=== PATIENT | male | born 1940 | race Caucasian/White ===

== ENCOUNTER 2016-02-12 13:28 | Inpatient (IN) | payer MEDICARE, OTHER ==
[~2016-02-12] VITALS: Ht 182.9 cm; Wt 73.6 kg
[~2016-02-12 13:28] MED LIST: NADOLOL 20MG TABLET PO SCH
[2016-02-12 14:41] LABS: BASO % 0.5 % (0.0-1.0); EOS % 0.8 % (0.0-3.0); LARGE UNSTAINED CELL # 0.2 K/mm3 (0.0-0.4); LARGE UNSTAINED CELL % 2.8 % (0.0-4.0); LYMPH # 1.8 K/mm3 (1.5-4.5); LYMPH % 22.7 % (24.0-44.0); MEAN CORPUSCULAR HGB CONC 34.9 g/dl (32.0-36.5); MEAN CORPUSCULAR VOLUME 94.5 fl (80.0-96.0); MONO # 0.7 K/mm3 (0.0-0.8); MONO % 9.7 % (0.0-5.0); NEUTROPHILS # 4.5 K/mm3 (1.8-7.7); NEUTROPHILS % 63.5 % (36.0-66.0); PLATELET COUNT, AUTOMATED 219 k/mm3 (150-450); WHITE BLOOD COUNT 7.1 K/mm3 (4.0-10.0)
--- NOTE | 2016-02-12 14:58 | REP ---
CT HEAD WITHOUT CONTRAST: HISTORY: Altered mental status. COMPARISON: 03/28/2015 An area of decreased attenuation is present in the right basal ganglia. This represents an old lacunar infarction. Areas of decreased attenuation are present in the periventricular and subcortical white matter. This represents small vessel ischemic disease. There is no intraparenchymal hemorrhage, mass or midline shift. The ventricular system and cortical sulci are dilated consistent with moderate volume loss. There is no extracerebral collection. The visualized sinuses are clear. IMPRESSION: 1. Old right basal ganglia lacunar infarction. 2. Small vessel ischemic disease. 3. Moderate volume loss. Signed by Jimmie Banks MD 02/12/2016 03:16 P
--- NOTE | 2016-02-12 14:59 | REP ---
PA CHEST X-RAY: Single view. HISTORY: Altered mental status. Comparison study March 28, 2015. FINDINGS: EKG monitoring electrodes overlie the chest. Heart is not enlarged. Aorta us slightly tortuous. Pulmonary vasculature is not increased. No significant bony abnormality. IMPRESSION: No active disease. Signed by Jason Bae MD 02/12/2016 04:39 P
[2016-02-12 15:00] LABS: ALBUMIN 4.3 GM/DL (3.2-5.2); ALBUMIN/GLOBULIN RATIO 1.54 (1.00-1.93); ALKALINE PHOSPHATASE 72 U/L (45-117); ALT/SGPT 25 U/L (12-78); ANION GAP 10 MEQ/L (8-16); AST/SGOT 28 U/L (15-37); BILIRUBIN,DIRECT 0.3 MG/DL (0.0-0.2); BILIRUBIN,TOTAL 0.8 MG/DL (0.2-1.0); BLOOD UREA NITROGEN 76 MG/DL (7-18); CALCIUM LEVEL 9.5 MG/DL (8.8-10.2); CARBON DIOXIDE LEVEL 24 MEQ/L (21-32); CHLORIDE LEVEL 104 MEQ/L (98-107); CREATININE FOR GFR 2.45 MG/DL (0.70-1.30); GLOMERULAR FILTRATION RATE 27.7 (>42); GLUCOSE, FASTING 101 MG/DL (83-110); POTASSIUM SERUM 4.7 MEQ/L (3.5-5.1); SODIUM LEVEL 138 MEQ/L (136-145); TOTAL PROTEIN 7.1 GM/DL (6.4-8.2)
[2016-02-12] MEDS ORDERED: NADO40TA PO (15:52)
[2016-02-12] MEDS ORDERED: FLUO40CA57 PO (15:52)
[2016-02-12] MEDS ORDERED: NATE120T4 PO (15:52)
[2016-02-12] MEDS ORDERED: METF500T PO (15:52)
[2016-02-12] MEDS ORDERED: LIPI20TA PO (15:52)
[2016-02-12] MEDS ORDERED: RAMI10CA PO (15:53)
[2016-02-12] MEDS ORDERED: LANS30CA PO (15:53)
[2016-02-12] MEDS ORDERED: ONDANSETRON 4MG/2ML VIAL (J2405) IV PRN (17:45)
[2016-02-12 18:10] LABS: MAGNESIUM LEVEL 1.8 MG/DL (1.8-2.4); PHOSPHORUS LEVEL 2.1 MG/DL (2.5-4.9)
[2016-02-12 18:15] LABS: AMPHETAMINES LEVEL URINE NEGATIVE (NEGATIVE); BENZODIAZEPINES URINE NEGATIVE (NEGATIVE); COCAINE METABOLITE URINE NEGATIVE (NEGATIVE); M-AMPHETAMINES LEVEL URINE NEGATIVE (NEGATIVE); OPIATES URINE NEGATIVE (NEGATIVE); TRICYCLIC ANTIDEPRESS URINE NEGATIVE (NEGATIVE)
[2016-02-12] MEDS ORDERED: GLUCOSE 4 GM CHEW TABLET PO PRN (18:30)
[2016-02-12] MEDS ORDERED: DEXTROSE 50% 50 ML SYRINGE IV PRN (18:30)
[2016-02-12] MEDS ORDERED: GLUCAGON FOR INJ 1 MG VIAL (J1610) SC PRN (18:30)
--- NOTE | 2016-02-12 19:10 | REPUSA ---
CLINICAL HISTORY: Possible obstruction.. TECHNIQUE: High resolution ultrasound images of the kidneys and additional images of the bladder. COMPARISON: None. FINDINGS: Right kidney: Measures 9.4 x 5.7 x 5.3 cm. Small peripheral cysts of 1.3 x 1.1 x 1.0 cm midpole and 3 .3 x 3.1 x 2.4 x cm. No evidence of hydronephrosis or calculus. Left kidney: Measures 11.6 x 5.6 x 5.2 cm. No evidence of hydronephrosis or renal calculus. Small upp er pole cysts of 1.4 x 1.2 x 1.2 cm and 1.3 x 1.3 x 1.2 cm. Bladder: No wall thickening, intraluminal mass, or diverticula. Prostate measures 4.6 x 3.6 x 2.4 cm. Incidental finding of small GB calculi up to 10 mm. IMPRESSION: Few bilateral renal cysts. Cholelithiasis.
--- NOTE | 2016-02-12 19:53 | ECGEPIP ---
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
--- NOTE | 2016-02-12 19:57 | HPE ---
DATE OF ADMISSION: 02/12/2016 Time patient was seen was 1600 hours. PRIMARY CARE PROVIDER: Jonas Rico Jr., MD CHIEF COMPLAINT: Altered mental status, confusion. HISTORY OF PRESENT ILLNESS: 75-year-old male with past medical history of type 2 diabetes, hypertension, hyperlipidemia, dementia, osteoarthritis, fall, alcohol abuse, gastroesophageal reflux disease (GERD), hiatal hernia, Schatzki ring status post balloon, hemorrhoids, diverticulosis, episode of sinus bradycardia in 2012, presented for increased confusion and delirium. Per patient's landlord who was in the room with the patient, patient has had increasing delirium over the past 3 months. As per landlord, patient would talk about his parents recently who have long and he stated that he has been visiting them recently. In addition, he talked with an imaginary woman and stated that that woman takes a shower in his apartment. In addition, he also drove into the garage and broke part of his car and there were multiple instances that patient thought he was in a different location. According to patient's landlord, patient has also been eating less, he eats about one meal per day, and mostly stays in his apartment. In addition, he sleeps throughout the day and only wakes up during the evening. Also, patient has been having multiple falls over the past one year and has been getting increasingly confused with poor memory and being delirious. When talking with patient, patient believes that he is enlisted in the service and he is going to be a private and he also believes that his parents are alive and he stated that he has been visiting them. However, patient does speak fluently and does show some insight of his decisions, however he remains delirious. He admits to weight loss over the past 1 year and patient stated it was intentional, however he could not tell why he is trying to lose weight. Otherwise, patient's short-term memory seems to be intact. Patient does know the month and year and the location and his full name. Patient denies any weakness on any side of his body, any slurred speech, any recent illness, any head trauma recently, or any chest pain, trouble breathing, abdominal pains, nausea, vomiting, diarrhea, or constipation. Patient denies any changes with his urination. Denies any changes with bowel movements. Denies any blood in the urine or stool. ALLERGIES: Patient is allergic to SULFA drugs. HOME MEDICATIONS: Include: - Lipitor 20 mg one tablet by mouth daily - fluoxetine 40 mg one tablet by mouth daily - lansoprazole 30 mg one tablet by mouth daily - metformin 500 mg one tablet by mouth twice a day - nadolol 40 mg one tablet by mouth daily - nateglinide 120 mg one tablet by mouth daily - ramipril 10 mg one tablet by mouth daily PAST MEDICAL HISTORY: Includin. Type 2 diabetes. 2. Hypertension. 3. Hyperlipidemia. 4. Dementia. 5. Osteoarthritis. 6. Recent falls. 7. Alcohol usage. 8. GERD. 9. Hiatal hernia. 10. Schatzki ring. 11. Hemorrhoids and diverticulosis. 12. Dysphagia status post balloon dilatation for Schatzki ring. 13. Sinus bradycardia with ventricular rate in 50s in 2013. PAST SURGICAL HISTORY: Includin. Tonsillectomy. SOCIAL HISTORY: Patient lives at a home. Has a brother in [place]. Patient used to smoke roughly 40 years ago, however only used to smoke several cigarettes a day for roughly 10 years. Admits to occasional drinking, used to be heavier a few years back, however he only drinks several beers a week now. Denies any recreational drug use. 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 FAMILY HISTORY: Admits to hypertension, diabetes runs in the family. REVIEW OF SYSTEMS: GENERAL: Patient denies any recent traveling, sick contacts, fever or chills. Admits to weight loss, he stated that it was intentional, however. However, he does not have a reason for his intentional weight loss. HEENT: Denies any changes with vision, smell, hearing, or taste. Denies any sore throat. Denies any trouble swallowing, however he did have a history of dysphagia with a balloon through EGD. CARDIOVASCULAR: Denies any chest pain, trouble breathing. PULMONARY: Denies any lung problems, any trouble breathing, any cough. GASTROINTESTINAL (GI): Patient denies any abdominal pains, nausea, vomiting, diarrhea, constipation, or blood in the stool. GENITOURINARY (): Patient denies any problem with urination, any blood in urine. MUSCULOSKELETAL: Denies any pain anywhere. ENDOCRINE: Denies any excessive cold or heat. HEMATOLOGY/ONCOLOGY: Denies any bruising or bleeding. PSYCHIATRIC: Admits to some dementia. Landlord also stated that he started having some dementia 25 years ago. NEUROLOGIC: Denies any weakness on any side of his body. Patient does not use a walker at home. Denies any change of sensation. PHYSICAL EXAMINATION: VITAL SIGNS: Blood pressure 88/58, pulse 58, respirations 16, temperature 97, oxygen saturation 100% on room air. Weight 72 kg, height 182 cm. GENERAL: Patient is a thin-looking, elderly male who was alert, awake, oriented times three, however does appear to be delirious. Does not have any discomfort. Sitting up at a 60 degree angle. HEENT: Normocephalic, atraumatic. Extraocular motors intact. Mucous moist. Neck: Supple, no neck lymphadenopathy. Patient has poor dentition. LUNGS: Clear to auscultation bilaterally. No wheezing, rales, or rhonchi. CARDIOVASCULAR: Regular rate and rhythm. No murmur, rubs, or gallops. ABDOMEN: Positive bowel sounds. Soft, nontender, nondistended. No peritoneal signs. No ecchymosis. EXTREMITIES: No edema, clubbing, or cyanosis. SKIN: Warm and dry. NEUROLOGIC: Cranial nerves II-XII intact. No focal neurological deficits. Eyebrow raise was equal bilaterally. Smile was symmetrical. Tongue protruding was midline. Patient's muscle strength was 5/5 in bilateral upper and lower extremities. Patient's gait appears to be roughly normal. Sensation was intact bilaterally. LABORATORY DATA: WBC 7.1, hemoglobin 13.8, hematocrit 39.4, platelet count 219, MCV 94.5. Sodium 138, potassium 4.7, chloride 104, bicarbonate 24, BUN 76, creatinine 2.45, GFR 27, fasting glucose 101, calcium 9.5, phosphorous 2.1, magnesium 1.8, total bilirubin 0.8, direct bilirubin 0.3, AST 28, ALT 25, alkaline phosphatase 72. CK 123, CK-MB 1.3, troponin less than 0.02, total protein 7.1, albumin 4.3, TSH 3.17. Urinalysis shows trace ketones. Salicylate was negative and acetaminophen was negative. Urine drug screen was negative. Alcohol level is less than 0.003. Urine culture is pending. Patient had a head CT in the emergency room, shows old right basilar ganglia lacunar infarction, small vessel ischemic disease, moderate volume loss. Patient had a one view chest xray, shows no active disease. Patient also had workup in the past, 01/30/2016, patient's vitamin B12 level was 230, folate level was 13.1. Patient's syphilis level has been checked recently, 01/30/2016, shows nonreactive. ASSESSMENT AND PLAN: 75-year-old male with past medical history of type 2 diabetes, hypertension, hyperlipidemia, dementia, likely Alzheimer type, osteoarthritis, falls, alcohol usage, gastroesophageal reflux disease (GERD), hiatal hernia, Schatzki ring, status post balloon dilatation, hemorrhoids, diverticulosis, sinus bradycardia, presented with: 1. Altered mental status, possibly secondary to progression of Alzheimer dementia versus vitamin B12 and folate metabolic encephalopathy versus stroke versus vascular dementia. Patient had a recent workup outpatient on 01/30/2016, shows patient's vitamin B12 level is borderline low. Patient is nonreactive with syphilis. Therefore, will provide patient with vitamin B12 shot for 3 days. Will also start patient on multivitamin. In addition, patient's MRI of the head has been pending. Will followup with the result. Patient is also recently found to have acute on chronic kidney disease with creatinine elevated compared to previous. Previously, creatinine was 1.14 back in March last year and currently is 2.45 with elevated BUN. This could also contribute to patient's delirium and dementia, however it could be the other way around as well due to patient has been eating and drinking less after worsening of dementia. Will continue to followup and rule out other causes for his altered mental status. 2. Acute on chronic kidney disease with creatinine of 2.45. About a year ago, patient's creatinine was 1.14. Patient received 1.5 liters of normal saline bolus in the emergency room. Will continue patient on normal saline at a rate of 80 mL/hour. Will check patient's fractional excretion of sodium (FENa) as well and continue to monitor. Renal ultrasound has been ordered as well, will followup with the result. 3. Anemia with hemoglobin of 13.8, MCV 94.5. Patient did have a slightly low vitamin B12 level. Continue supplement and will also order hemoccult. 4. Type 2 diabetes. Patient's metformin and nateglinide has been on hold due to acute on chronic kidney disease. Will place patient on insulin sliding scale and continue to monitor. Patient's ramipril has been on hold as well due to hypotension and also acute on chronic kidney disease. Will continue to monitor. 5. Hypotension. Initial blood pressure was 80/56. After 1.5 liters of bolus, patient's blood pressure was 88/59. Will continue orthostatic vital signs and continue to monitor patient. Continue intravenous (IV) fluids. 6. Hyperlipidemia. Will hold statin for now due to acute on chronic kidney disease and continue to monitor. 7. Dementia, without specified type, likely Alzheimer type. Will obtain record from Dr. Rico's office and continue to monitor patient. 8. Osteoarthritis. Will continue Tylenol. 9. Frequent falls. Will continue fall precaution. 10. History of alcohol usage. Level has been checked and is negative. Will continue to monitor. 11. History of gastroesophageal reflux disease (GERD), hiatal hernia, Schatzki ring with balloon dilatation in the past. Continue to monitor. Patient denies any trouble swallowing. Will continue home proton pump inhibitor (PPI). 12. Hemorrhoids and diverticulosis. Continue to monitor. Stable. 13. Sinus bradycardia with a ventricular rate of 55 in 2012. Will continue to monitor patient in the progressive care unit (PCU) for now due to altered mental status. 14. Deep venous thrombosis (DVT) prophylaxis with heparin 5000 units subcutaneously every 12 hours as well as thromboembolism deterrents (TEDs) and sequential compression device. DISPOSITION: Patient has a rather acute exacerbation of confusion from his baseline and also delirium, worse for the past 3 months, sent over by Dr. Rico and his landlord due to possible self-harm, he is still driving. Will rule out etiologies for his altered mental status and continue to monitor him in progressive care unit (PCU) for the night. Patient has been discussed with attending doctor, Dr. Sahni. My preceptor for this patient encounter was Dr. Cori Sahni. The preceptor was physically present in the building during the encounter and was fully available. As needed, all aspects of the patient interview, examination, medical decision making process, and medical care plan development were reviewed and approved by the preceptor. The preceptor is aware and concurs with the plan as stated in the body of this note and will attest to such by his cosignature.
[2016-02-12] MEDS: MULTIVITAMINS/MINERALS THERAP 1 TAB PO SCH (20:00)
[2016-02-12] MEDS: CYANOCOBALAMIN 1,000 MCG/ML VIAL (J3420) IM SCH (20:00)
--- NOTE | 2016-02-12 20:04 | EDDOCDS ---
Physician Documentation [facility] Name: Jimmie Loredo Age: 75 yrs Sex: Male : 1940 Arrival Date: 02/12/2016 Time: 13:28 Bed 11 Private MD: Jacky Disposition: 02/12/16 15:25 Hospitalization ordered by Cori Sahni for Inpatient Admission. Preliminary diagnosis are Hypotension - Acute Kidney Injury, Altered mental status, unspecified. - Bed requested for PCU. - Status is Inpatient Admission. mlc - Condition is Stable. - Problem is new. - Symptoms are unchanged. Historical: - Allergies: Sulfa (Sulfonamide Antibiotics); - Home Meds: 1. Lipitor 20 mg Oral tab 1 tab once daily 2. metformin 500 mg Oral tab 1 tab 2 times per day 3. Starlix 60 mg Oral tab 2 tabs daily 4. Naproxen Oral unknown 5. Angelita Oral Unknown unknown - PMHx: Diabetes - NIDDM: controlled; hyperlipidemia; Hypertension; - PSHx: none; - Social history: No barriers to communication noted, The patient speaks fluent Filipino, Smoking status: Patient states former smoker of tobacco. - Family history: Not pertinent. - : The pt / caregiver states he / she is not on anticoagulants. Home medication list is obtained from the patient. - Exposure Risk Screening:: None identified. Vital Signs: 02/11 13:32 BP 80 / 56; Pulse 62; Resp 18 S; Temp 97.0(T); Pulse Ox 100% on R/A; Weight 72.57 kg / gr2 159.99 lbs (R); Height 6 ft. 0 in. (182.88 cm) (R); Pain 0/10; 13:46 BP 99 / 55 (auto/); Pulse 52; Resp 16; Pulse Ox 98% on R/A; Pain 0/10; ml6 14:31 BP 88 / 58 (auto/); ml6 14:31 Pulse 58 MON; Resp 16; Pulse Ox 100% on R/A; Pain 0/10; ml6 15:00 BP 105 / 54; Pulse 57; Resp 16; Pulse Ox 98% on R/A; Pain 0/10; ml6 16:00 BP 107 / 58; Pulse 55; Resp 16; Pulse Ox 98% on R/A; Pain 0/10; ml6 18:00 BP 118 / 61; Pulse 58; Resp 18; Temp 97.8(O); Pulse Ox 98% on R/A; Pain 0/10; ml6 20:01 BP 97 / 56; Pulse 59; Resp 18; Temp 98.1(TE); Pulse Ox 99% on R/A; Pain 0/10; mlc 13:32 Body Mass Index 21.70 (72.57 kg, 182.88 cm) gr2 MDM: 14:00 [employer]/Pulse Ox/q 15 min VS ordered. br1 14:00 IV Saline Lock ordered. br1 14:00 Rhythm Strip to chart ordered. br1 14:00 NS 0.9% 500 ml IV at bolus once ordered. br1 14:00 Undress patient ordered. br1 14:01 Acetaminophen Level Ordered. EDMS 14:01 CBC with Diff Ordered. EDMS 14:01 Cardiac Injury Profile Ordered. EDMS 14:01 Drug Eval Toxicology ED Only Ordered. EDMS 14:01 Liver Profile Ordered. EDMS 14:01 MED Profile Ordered. EDMS 14:01 Salicylate Level Ordered. EDMS 14:01 Thyroid Stimulating Hormone Ordered. EDMS 14:01 Troponin Ordered. EDMS 14:01 Urinalysis Ordered. EDMS 14:01 Urine Culture Ordered. EDMS 14:01 Chest, 1 View Ordered. EDMS 14:02 CT Head Without Contrast Ordered. EDMS 14:02 ECG WITH READING ER PHYS+CARDIAG ordered. EDMS 14:49 CBC with Diff Reviewed. br1 15:02 Financial registration complete. mm15 15:06 [facility] [place] was [place] into [employer] and attached to record. mm15 15:11 NS 0.9% 1000 ml IV at 150 mL/hr continuous ordered. br1 15:12 Acetaminophen Level Reviewed. br1 15:12 Liver Profile Reviewed. br1 15:12 MED Profile Reviewed. br1 15:12 Salicylate Level Reviewed. br1 15:12 Cardiac Injury Profile Reviewed. br1 15:12 Thyroid Stimulating Hormone Reviewed. br1 15:12 Troponin Reviewed. br1 15:15 BED REQUEST+ADM ordered. EDMS 17:25 Admission / Observation Status ordered. EDMS 17:41 SODIUM,RANDOM URINE Ordered. EDMS 17:41 CREATININE,RANDOM URINE Ordered. EDMS 17:41 MRI Brain without Contrast Ordered. EDMS 17:42 PHYSICAL THERAPY EVAL & TREAT ordered. EDMS 17:42 RENAL US Ordered. EDMS 17:49 CONSISTENT CARBOHYDRATES ordered. EDMS 18:00 ETHYL ALCOHOL (ETHANOL) Ordered. EDMS 18:53 BLOOD CULTURES Ordered. EDMS 18:53 BLOOD CULTURES Ordered. EDMS 19:01 LACTIC ACID LEVEL, LACTATE Ordered. EDMS 19:31 BASIC METABOLIC PROFILE Ordered. EDMS 19:32 CBC WITH DIFFERENTIAL Ordered. EDMS 19:32 BILIRUBIN,DIRECT Ordered. EDMS Administered Medications: 14:31 Drug: NS 0.9% 500 ml [sodium chloride 0.9 % intravenous solution] Route: IV; Rate: nr1 bolus; Site: right antecubital; 15:30 Follow up: IV Status: Completed infusion; Infusion discontinued; IV Intake: 500ml ml6 15:13 Drug: NS 0.9% 1000 ml [sodium chloride 0.9 % intravenous solution] Route: IV; Rate: 150 ml6 mL/hr; Site: right antecubital; Signatures: Dispatcher [employer] EDMS Chauncey Aquino MD MD br1 Paxton Grimaldo, BRYCE RN ml6 Sharla Manzano mm15 Barbra Diehl RN RN mk4 Mary Dey,RN RN mlc Shonna Thomas RN RN sls2 Jossy Morales RN nr1 The chart was reviewed and I authenticate all verbal orders and agree with the evaluation and treatment provided.Corrections: (The following items were deleted from the chart) 18:00 17:41 MAGNESIUM LEVEL ordered. EDMS EDMS 18:00 17:41 PHOSPHOROUS LEVEL ordered. EDMS EDMS 18:03 17:41 LACTIC ACID LEVEL, LACTATE ordered. EDMS EDMS 18:03 17:41 ETHYL ALCOHOL (ETHANOL) ordered. EDMS EDMS 19:02 17:41 LACTIC ACID LEVEL, LACTATE ordered. EDMS EDMS 20:01 14:01 Consult PFS/PSA/Resident Programs Assistant ordered. br1 apr Attachments: 15:06 [facility] Payment Agreement mm15 MTDD
--- NOTE | 2016-02-12 20:04 | EDDOCDS ---
Nurse's Notes [facility] Name: Jimmie Loredo Age: 75 yrs Sex: Male : 1940 Arrival Date: 02/12/2016 Time: 13:28 Bed 11 Private MD: Jacky Diagnosis: Hypotension-Acute Kidney Injury;Altered mental status, unspecified Presentation: 02/11 13:32 Presenting complaint: Patient states: dr Rico office sent pt here for a mental 4 health evaluation per meño however pt doesn't know this , she states he will "snap" if he knows that's why he is here , he has dementia unable to tell what time of day worse in the evening, sl;eeps during day, up all night confused thinks his parents are alive, landlord called adult protective pt is driving still landlord has had to call the police as he is unsafe , brother in [place] only family he has and really cannot help. Mental Health Triage Level Level 1- Pt displays no suicidal or homicidal ideations and does not appear to be a danger to self or others. Suicide/Homicide risk assessment- Unable to assess. Status: Patient is not a director of perioperative services or dependent. Transition of care: patient was not received from another setting of care. 13:32 Acuity: ANTHONY Level 3 mk4 13:32 Method Of Arrival: Walkin/Carried/Asstd mk4 13:45 Presenting complaint:. mk4 Triage Assessment: 13:37 General: Appears in no apparent distress. mk4 13:39 Pain: Denies pain. mk4 Historical: - Allergies: Sulfa (Sulfonamide Antibiotics); - Home Meds: 1. Lipitor 20 mg Oral tab 1 tab once daily 2. metformin 500 mg Oral tab 1 tab 2 times per day 3. Starlix 60 mg Oral tab 2 tabs daily 4. Naproxen Oral unknown 5. Angelita Oral Unknown unknown - PMHx: Diabetes - NIDDM: controlled; hyperlipidemia; Hypertension; - PSHx: none; - Social history: No barriers to communication noted, The patient speaks fluent Mongolian, Smoking status: Patient states former smoker of tobacco. - Family history: Not pertinent. - : The pt / caregiver states he / she is not on anticoagulants. Home medication list is obtained from the patient. - Exposure Risk Screening:: None identified. Screenin:36 Screening information is obtained from the patient. Fall risk: No risks identified. ml6 Assistance ADL's: requires no assistance with activities of daily living. Abuse/DV Screen: The patient / caregiver reports he/she is: not in a situation that causes fear, pain or injury. Nutritional screening: No deficits noted. Advance Directives: Currently, there is no health care proxy. home support is adequate. Assessment: 13:45 General: Appears in no apparent distress, Behavior is appropriate for age, cooperative. ml6 Pain: Denies pain. Neurological: Level of Consciousness is awake, confused, Oriented to person, Knobber are equal bilaterally Moves all extremities. Full function Gait is steady, Speech is normal, Facial symmetry appears normal, Pupils are PERRLA. Cardiovascular: No deficits noted. Capillary refill < 3 seconds is brisk in bilateral fingers toes Heart tones S1 S2 present. Respiratory: No deficits noted. Airway is patent Respiratory effort is even, unlabored, Respiratory pattern is regular, symmetrical, Breath sounds are clear bilaterally. GI: No deficits noted. 14:50 Reassessment: Patient appears in no apparent distress at this time. Patient states ml6 symptoms have not improved. no change from previous assessment, patient remains confused, denies pain or discomfort. 15:45 Reassessment: Patient appears in no apparent distress at this time. Patient denies pain ml6 at this time. Patient states symptoms have not improved. no change from previous, patient confused and alert. 16:55 General: Appears in no apparent distress, Behavior is appropriate for age, cooperative. ml6 Pain: Denies pain. Neurological: Level of Consciousness is awake, confused, Oriented to person, Knobber are equal bilaterally Moves all extremities. Full function Gait is steady, Speech is normal, Facial symmetry appears normal, Pupils are PERRLA. Cardiovascular: No deficits noted. Capillary refill < 3 seconds is brisk in bilateral fingers toes. Respiratory: No deficits noted. GI: No deficits noted. 18:02 Reassessment: Patient appears in no apparent distress at this time. Patient denies pain ml6 at this time. Patient states symptoms have not improved. 19:55 General: Appears in no apparent distress, comfortable, Behavior is cooperative, mlc pleasant, pt returned from MRI. Pain: Denies pain. Neurological: Level of Consciousness is awake, confused, obeys commands, Oriented to person. Respiratory: Airway is patent Respiratory effort is even, unlabored, Respiratory pattern is regular. Derm: Skin is normal. Vital Signs: 13:32 BP 80 / 56; Pulse 62; Resp 18 S; Temp 97.0(T); Pulse Ox 100% on R/A; Weight 72.57 kg gr2 (R); Height 6 ft. 0 in. (182.88 cm) (R); Pain 0/10; 13:46 BP 99 / 55 (auto/); Pulse 52; Resp 16; Pulse Ox 98% on R/A; Pain 0/10; ml6 14:31 BP 88 / 58 (auto/); ml6 14:31 Pulse 58 MON; Resp 16; Pulse Ox 100% on R/A; Pain 0/10; ml6 15:00 BP 105 / 54; Pulse 57; Resp 16; Pulse Ox 98% on R/A; Pain 0/10; ml6 16:00 BP 107 / 58; Pulse 55; Resp 16; Pulse Ox 98% on R/A; Pain 0/10; ml6 18:00 BP 118 / 61; Pulse 58; Resp 18; Temp 97.8(O); Pulse Ox 98% on R/A; Pain 0/10; ml6 20:01 BP 97 / 56; Pulse 59; Resp 18; Temp 98.1(TE); Pulse Ox 99% on R/A; Pain 0/10; mlc 13:32 Body Mass Index 21.70 (72.57 kg, 182.88 cm) gr2 Vitals: 13:32 Log In Time: February 12, 2016 at 13:32. gr2 13:39 Does not meet SIRS criteria. mk4 ED Course: 13:31 Patient visited by Rivera Schneider. gr2 13:31 Patient moved to Waiting gr2 13:32 Jacky is Private Physician. gr2 13:37 Patient visited by Rivera Schneider. gr2 13:37 Triage Initiated mk4 13:37 Patient moved to Pre RCE gr2 13:40 Patient moved to 11 [facility] 13:49 Chauncey Aqunio MD is Attending Physician. br1 13:58 Patient visited by Chauncey Aquino MD. br1 14:28 Patient visited by Cyrus Javier. dem1 14:28 EKG done. (by ED staff). Reviewed by Chauncey Aquino MD. dem1 14:33 Troponin Sent. ml6 14:37 Inserted peripheral IV: 20gauge IV in right antecubital area and blood collected. ml6 Patient tolerated the procedure well. inserted by kenzie Carlson RN. 14:52 Patient visited by Paxton Grimaldo, RN. ml6 15:06 [facility] Payment Agreement was scanned into [employer] and attached to record. mm15 15:12 Patient name changed from Jimmie\\S\\\\S\\Loredo\\S\\ to Jimmie\\S\\ \\S\\Loredo. EDMS 15:23 Patient visited by Paxton Grimaldo, RN. ml6 15:25 Cori Sahni is Hospitalizing Provider. br1 15:29 CT Head Without Contrast Returned. EDMS 15:29 Chest, 1 View Returned. EDMS 18:15 Patient moved to Ultrasound hgl 18:40 Patient moved to 11 hgl 18:41 Patient visited by Cyrus Javier. dem1 18:41 Diet: Patient given regular meal. dem1 18:42 The patient / caregiver is instructed regarding the plan of care and ED course. ml6 18:42 No procedures done that require assistance. ml6 18:58 Mary Dey,RN is Primary Nurse. mlc 19:08 Patient visited by Chadd Atwood PCA. kb5 19:13 RENAL US Returned. EDMS 19:56 Patient visited by Mary Dey,BRYCE. mlc Administered Medications: 14:31 Drug: NS 0.9% 500 ml [sodium chloride 0.9 % intravenous solution] Route: IV; Rate: nr1 bolus; Site: right antecubital; 15:30 Follow up: IV Status: Completed infusion; Infusion discontinued; IV Intake: 500ml ml6 15:13 Drug: NS 0.9% 1000 ml [sodium chloride 0.9 % intravenous solution] Route: IV; Rate: 150 ml6 mL/hr; Site: right antecubital; Intake: 15:30 IV: 500.00ml; Total: 500.00ml. ml6 Order Results: Lab Order: Acetaminophen Level; SPEC'M 02/12/16 14:24 Test: ACETAMINOPHEN LEVEL; Value: < 2.0; Range: 10.0-30.0; Abnormal: Below low normal; Units: UG/ML; Status: F Lab Order: CBC with Diff; SPEC'M 02/12/16 14:25 Test: WHITE BLOOD COUNT; Value: 7.1; Range: 4.0-10.0; Units: K/mm3; Status: F Test: RED BLOOD COUNT; Value: 4.17; Range: 4.30-6.10; Abnormal: Below low normal; Units: M/mm3; Status: F Test: HEMOGLOBIN; Value: 13.8; Range: 14.0-18.0; Abnormal: Below low normal; Units: g/dl; Status: F Test: HEMATOCRIT; Value: 39.4; Range: 42.0-52.0; Abnormal: Below low normal; Units: %; Status: F Test: MEAN CORPUSCULAR VOLUME; Value: 94.5; Range: 80.0-96.0; Units: fl; Status: F Test: MEAN CORPUSCULAR HEMOGLOBIN; Value: 33.0; Range: 27.0-33.0; Units: pg; Status: F Test: MEAN CORPUSCULAR HGB CONC; Value: 34.9; Range: 32.0-36.5; Units: g/dl; Status: F Test: RED CELL DISTRIBUTION WIDTH; Value: 13.0; Range: 11.5-14.5; Units: %; Status: F Test: PLATELET COUNT, AUTOMATED; Value: 219; Range: 150-450; Units: k/mm3; Status: F Test: NEUTROPHILS %; Value: 63.5; Range: 36.0-66.0; Units: %; Status: F Test: LYMPH %; Value: 22.7; Range: 24.0-44.0; Abnormal: Below low normal; Units: %; Status: F Test: MONO %; Value: 9.7; Range: 0.0-5.0; Abnormal: Above high normal; Units: %; Status: F Test: EOS %; Value: 0.8; Range: 0.0-3.0; Units: %; Status: F Test: BASO %; Value: 0.5; Range: 0.0-1.0; Units: %; Status: F Test: LARGE UNSTAINED CELL %; Value: 2.8; Range: 0.0-4.0; Units: %; Status: F Test: NEUTROPHILS #; Value: 4.5; Range: 1.8-7.7; Units: K/mm3; Status: F Test: LYMPH #; Value: 1.8; Range: 1.5-4.5; Units: K/mm3; Status: F Test: MONO #; Value: 0.7; Range: 0.0-0.8; Units: K/mm3; Status: F Test: EOS #; Value: 0.0; Range: 0.0-0.50; Units: K/mm3; Status: F Test: BASO #; Value: 0.0; Range: 0.0-0.2; Units: K/mm3; Status: F Test: LARGE UNSTAINED CELL #; Value: 0.2; Range: 0.0-0.4; Units: K/mm3; Status: F Lab Order: Cardiac Injury Profile; SPEC'M 02/12/16 14:24 Test: CPK CREATINE PHOSPHOKINASE; Value: 123; Range: 39-308; Units: U/L; Status: F Test: CK-MB VALUE MASS; Value: 1.3; Range: 0.0-3.6; Units: NG/ML; Status: F Test: MB/CK RELATIVE INDEX; Value: 1.05; Range: < OR =4; Status: F Test Note: ; DIAGNOSIS CRITERIA MMB ng/ml Relative Index (RI) NON-AMI < or = 5 N/A VANCE ZONE > 5 < or = 4 AMI > 5 > 4 Lab Order: Drug Eval Toxicology ED Only; SPEC'M 02/12/16 14:25 Test: AMPHETAMINES LEVEL URINE; Value: NEGATIVE; Range: NEGATIVE; Status: F Test: M-AMPHETAMINES LEVEL URINE; Value: NEGATIVE; Range: NEGATIVE; Status: F Test: BARBITURATES URINE; Value: NEGATIVE; Range: NEGATIVE; Status: F Test: BENZODIAZEPINES URINE; Value: NEGATIVE; Range: NEGATIVE; Status: F Test: CANNABINOIDS URINE; Value: NEGATIVE; Range: NEGATIVE; Status: F Test: COCAINE METABOLITE URINE; Value: NEGATIVE; Range: NEGATIVE; Status: F Test: OPIATES URINE; Value: NEGATIVE; Range: NEGATIVE; Status: F Test: PHENCYCLIDINE URINE; Value: NEGATIVE; Range: NEGATIVE; Status: F Test: TRICYCLIC ANTIDEPRESS URINE; Value: NEGATIVE; Range: NEGATIVE; Status: F Test Note: ; ALL PRESUMPTIVE POSITIVE FINDINGS ARE UNCONFIRMED NORMAL VALUES THRESHOLD IN NG/ML AMPHETAMINES 1000 METHAMPHETAMINES 1000 BARBITURATES 300 BENZODIAZEPINES 300 CANNABINOIDS (THC) 50 COCAINE METABOLITE 300 METHADONE 300 OPIATES 300 PHENCYCLIDINE 25 TRICYCLIC ANTIDEPRESSANTS 1000 RESULTS ARE FOR MEDICAL PURPOSES ONLY. ALL URINE SPECIMENS WILL BE SAVED FOR 3 DAYS. IF CONFIRMATION OF A PRESUMPTIVE POSTIVE SCREEN RESULT IS DESIRED, CALL CHEMISTRY ([phone]) AND REQUEST URINE TO BE SENT TO REFERENCE LAB. FOR A LIST OF CLOSELY RELATED COMPOUNDS PLEASE CALL THE LAB. Lab Order: Liver Profile; SPEC'M 02/12/16 14:24 Test: AST/SGOT; Value: 28; Range: 15-37; Units: U/L; Status: F Test: ALT/SGPT; Value: 25; Range: 12-78; Units: U/L; Status: F Test: ALKALINE PHOSPHATASE; Value: 72; Range: 45-117; Units: U/L; Status: F Test: BILIRUBIN,TOTAL; Value: 0.8; Range: 0.2-1.0; Units: MG/DL; Status: F Test: BILIRUBIN,DIRECT; Value: 0.3; Range: 0.0-0.2; Abnormal: Above high normal; Units: MG/DL; Status: F Test: TOTAL PROTEIN; Value: 7.1; Range: 6.4-8.2; Units: GM/DL; Status: F Test: ALBUMIN; Value: 4.3; Range: 3.2-5.2; Units: GM/DL; Status: F Test: ALBUMIN/GLOBULIN RATIO; Value: 1.54; Range: 1.00-1.93; Status: F Lab Order: MED Profile; SPEC'M 02/12/16 14:24 Test: GLUCOSE, FASTING; Value: 101; Range: 83-110; Units: MG/DL; Status: F Test: BLOOD UREA NITROGEN; Value: 76; Range: 7-18; Abnormal: Above high normal; Units: MG/DL; Status: F Test: CREATININE FOR GFR; Value: 2.45; Range: 0.70-1.30; Abnormal: Above high normal; Units: MG/DL; Status: F Test: GLOMERULAR FILTRATION RATE; Value: 27.7; Range: >42; Abnormal: Below low normal; Status: F Test: SODIUM LEVEL; Value: 138; Range: 136-145; Units: MEQ/L; Status: F Test: POTASSIUM SERUM; Value: 4.7; Range: 3.5-5.1; Units: MEQ/L; Status: F Test: CHLORIDE LEVEL; Value: 104; Range: 98-107; Units: MEQ/L; Status: F Test: CARBON DIOXIDE LEVEL; Value: 24; Range: 21-32; Units: MEQ/L; Status: F Test: ANION GAP; Value: 10; Range: 8-16; Units: MEQ/L; Status: F Test: CALCIUM LEVEL; Value: 9.5; Range: 8.8-10.2; Units: MG/DL; Status: F Test Note: ; Units are mL/min/1.73 m2 Chronic Kidney Disease Staging per NKF: Stage I & II GFR >=60 Normal to Mildly Decreased Stage III GFR 30-59 Moderately Decreased Stage IV GFR 15-29 Severely Decreased Stage V GFR <15 Very Little GFR Left ESRD GFR <15 on CHANGE ADVISOR Lab Order: Salicylate Level; [facility] 02/12/16 14:24 Test: SALICYLATE LEVEL; Value: < 1.7; Range: 5.0-30.0; Abnormal: Below low normal; Units: MG/DL; Status: F Lab Order: Thyroid Stimulating Hormone; [facility] 02/12/16 14:24 Test: THYROID STIMULATING HORMONE; Value: 3.170; Range: 0.358-3.740; Units: uIU/ML; Status: F Lab Order: Troponin; [facility] 02/12/16 14:24 Test: TROPONIN I; Value: < 0.02; Range: < 0.10; Units: NG/ML; Status: F Test Note: ; Troponin I Reference Interval for [place] LOCI: 99th Percentile= 0.00-0.045 ng/ml Risk Stratification: <= 0.10 ng/ml Decreased Risk for Adverse Clinical Events. 0.10-1.50 ng/ml Increased Risk for Adverse Clinical Events. Evaluation of additional criterion and/or repeat testing in 2-6 hours is suggested to rule out myocardial damage. >= 1.50 ng/ml Indicative of Myocardial Injury. Lab Order: Urinalysis; [facility] 02/12/16 14:25 Test: APPEARANCE, URINE; Value: CLEAR; Range: CLEAR; Status: F Test: COLOR, URINE; Value: YELLOW; Range: YELLOW; Status: F Test: PH,URINE; Value: 5.0; Range: 5.0-9.0; Units: UNITS; Status: F Test: SPECIFIC GRAVITY URINE AUTO; Value: 1.016; Range: 1.002-1.035; Status: F Test: PROTEIN, URINE AUTO; Value: NEGATIVE; Range: NEGATIVE; Units: mg/dL; Status: F Test: GLUCOSE, URINE (UA) AUTO; Value: NEGATIVE; Range: NEGATIVE; Units: mg/dL; Status: F Test: KETONE, URINE AUTO; Value: TRACE; Range: NEGATIVE; Abnormal: Above high normal; Units: mg/dL; Status: F Test: UROBILINOGEN, URINE AUTO; Value: 0.2; Range: 0.0-2.0; Units: mg/dL; Status: F Test: BILIRUBIN, URINE AUTO; Value: NEGATIVE; Range: NEGATIVE; Status: F Test: NITRITE, URINE AUTO; Value: NEGATIVE; Range: NEGATIVE; Status: F Test: LEUKOCYTE ESTERASE, URINE AUTO; Value: NEGATIVE; Range: NEGATIVE; Status: F Test: BLOOD, URINE BLOOD; Value: NEGATIVE; Range: NEGATIVE; Status: F Test: WBC, URINE AUTO; Value: 2; Range: 0-3; Units: /HPF; Status: F Test: RBC, URINE AUTO; Value: 1; Range: 0-3; Units: /HPF; Status: F Test: BACTERIA, URINE AUTO; Value: NEGATIVE; Range: NEGATIVE; Status: F Test: SQUAMOUS EPITHELIAL CELL UR AU; Value: 1; Range: 0-6; Units: /HPF; Status: F Test: MUCUS, URINE; Value: SMALL; Range: NEGATIVE; Status: F Test: HYALINE CAST, URINE AUTO; Value: 4; Range: 0-1; Units: /LPF; Status: F Lab Order: SODIUM,RANDOM URINE; SPEC'M 02/12/16 17:43 Test: SODIUM,RANDOM URINE; Value: 95; Units: MEQ/L; Status: F Lab Order: CREATININE,RANDOM URINE; SPEC'M 02/12/16 17:43 Test: CREATININE,RANDOM URINE; Value: 164.0; Units: MG/DL; Status: F Lab Order: ETHYL ALCOHOL (ETHANOL); SPEC'M 02/12/16 14:24 Test: ETHYL ALCOHOL (ETHANOL); Value: < 0.003; Range: 0.000-0.010; Units: %; Status: F Lab Order: PHOSPHOROUS LEVEL; SPEC'M 02/12/16 14:24 Test: PHOSPHORUS LEVEL; Value: 2.1; Range: 2.5-4.9; Abnormal: Below low normal; Units: MG/DL; Status: F Lab Order: MAGNESIUM LEVEL; SPEC'M 02/12/16 14:24 Test: MAGNESIUM LEVEL; Value: 1.8; Range: 1.8-2.4; Units: MG/DL; Status: F Radiology Order: CT Head Without Contrast Test: CT Head Without Contrast REASON FOR EXAMINATION: altered mental status; CT HEAD WITHOUT CONTRAST:; ; HISTORY: Altered mental status.; ; COMPARISON: 03/28/2015; ; An area of decreased attenuation is present in the right basal ganglia. This; represents an old lacunar infarction. Areas of decreased attenuation are present; in the periventricular and subcortical white matter. This represents small vessel; ischemic disease. There is no intraparenchymal hemorrhage, mass or midline shift.; The ventricular system and cortical sulci are dilated consistent with moderate; volume loss. There is no extracerebral collection. The visualized sinuses are; clear.; ; IMPRESSION:; ; 1. Old right basal ganglia lacunar infarction.; ; 2. Small vessel ischemic disease.; ; 3. Moderate volume loss.; ; ; Signed by; Jimmie Banks MD 02/12/2016 03:16 P; Radiology Order: Chest, 1 View Test: Chest, 1 View REASON FOR EXAMINATION: altered mental status; PA CHEST X-RAY:; ; Single view.; ; HISTORY: Altered mental status.; ; Comparison study March 28, 2015.; ; FINDINGS: EKG monitoring electrodes overlie the chest. Heart is not enlarged.; Aorta us slightly tortuous. Pulmonary vasculature is not increased. No; significant bony abnormality.; ; IMPRESSION: No active disease.; ; ; Signed by; Jason Bae MD 02/12/2016 04:39 P; Radiology Order: RENAL US Test: RENAL US REASON FOR EXAMINATION: obstruction, medical renal disease; ; CLINICAL HISTORY: Possible obstruction..; TECHNIQUE: High resolution ultrasound images of the kidneys and additional; images of the bladder.; COMPARISON: None.; FINDINGS:; Right kidney: Measures 9.4 x 5.7 x 5.3 cm. Small peripheral cysts of 1.3 x 1.1 x 1.0 cm midpole and 3; .3 x 3.1 x 2.4 x cm. No evidence of; hydronephrosis or calculus.; Left kidney: Measures 11.6 x 5.6 x 5.2 cm. No evidence of hydronephrosis or renal calculus. Small upp; er pole cysts of; 1.4 x 1.2 x 1.2 cm and 1.3 x 1.3 x 1.2 cm.; Bladder: No wall thickening, intraluminal mass, or diverticula. Prostate measures 4.6 x 3.6 x 2.4 cm.; ; Incidental finding of small GB calculi up to 10 mm.; IMPRESSION: Few bilateral renal cysts. Cholelithiasis.; ; Outcome: 15:25 Decision to Hospitalize by Provider. br1 18:15 Discharge Assessment: patient administered narcotics - no. The following High Risk 6 Discharge criteria are identified: None. CT Study completed. Admission hand-off: Report Faxed Fax receipt verified by john fitch rn. Property :Personal belongings accompany Pt. 19:54 Admission hand-off: Report Faxed Fax receipt verified by BRYCE Briggs. [facility] [place] 19:55 MRI Study completed. mlc 20:02 Condition: stable. mlc 20:03 Patient left the ED. [facility] [place] Signatures: Dispatcher [employer] EDMS Rosita Singh RN RN srm Chadd Atwood, CHARGEBACK SPECIALIST CHARGEBACK SPECIALIST kb5 Chauncey Aquino MD MD br1 Paxton Grimaldo RN RN ml6 Cyrus Javier dem1 [place], [place] hgl Rivera Schneider gr2 Sharla Manzano mm15 Barbra Diehl RN RN mk4 Mary Dey RN RN mlc Jossy Morales RN RN nr1 Corrections: (The following items were deleted from the chart) 13:46 13:32 Presenting complaint: Patient states: dr Rico office sent pt here for a mental 4 health evaluation per meño however pt doesn't know this , she states he will "snap" if he knows that's why he is here , he has dementia unable to tell what time of day worse in the evening, sl;eeps during day, up all night confused thinks his parents are alive, meño called adult protective pt is driving still meño has had to call the police as he is unsafe , brother in [place] only family mk4 MTDD
[2016-02-12 20:15] VITALS: BP 101/61
--- NOTE | 2016-02-12 20:40 | REPUSA ---
CLINICAL HISTORY: MEMORY LOSS, HX DEMENTIA, CONFUSION. TECHNIQUE: MRI of the brain was performed without administration of intravenous contrast material. T1 spine echo, T2 fast spin echo and FLAIR sequences were obtained in sagittal, axial and coronal plane s. FINDINGS: The sella and parasellar regions are unremarkable in appearance. The corpus callosum and cerebellar t onsils are of normal configuration and position. There are no intra or extra-axial collections. There is no mass effect or midline shift. There is no evidence of hematoma formation. There is no hydrocep halus. The brain stem shows no mass effects, infarcts or hemorrhage. There are no cerebellopontine tumors. T he acoustic nerves are symmetrical. No cerebellar intra-axial pathology delineated. The fourth ventri sushila and aqueduct are normal. No abnormalities of the optic nerves are identified. No dural or subdura l masses or collections are detected. There is evidence for generalized symmetrical dilatation of the ventricles and cortical sulci consist ent with parenchymal atrophy. There are pontine as well as bilateral periventricular and subcortical T2 and FLAIR hyperintensities extending into centrum semi ovale compatible with severe chronic white matter ischemic disease. The visualized arterial structures demonstrate normal appearing flow voids. The VII and VIII nerve bu ndles are visualized and are unremarkable in appearance. Mucosal thickening is seen involving bilateral ethmoid and maxillary sinuses compatible with chronic sinusitis. IMPRESSION: 1. Generalized age-appropriate parenchymal atrophy. 2. White matter severe chronic ischemic changes. 3. Chronic ethmoid and maxillary sinusitis. 4. No evidence of acute intracranial pathology. Thank you for your kind referral of this patient.
[2016-02-12] MEDS: HumaLOG INSULIN (NovoLOG) PER UNIT SC SCH (21:00)
[2016-02-12] MEDS: DOCUSATE SODIUM 100 MG CAP PO SCH (21:00)
[2016-02-12] MEDS: HEPARIN SOD (PORCINE) 5000 UNITS/ML VIAL SC SCH (21:36)
[2016-02-12] MEDS: NS 1,000 ML IV SCH (21:36)
[2016-02-12 23:27] VITALS: BP 80/60
[2016-02-13] VITALS (7 sets, daily range): BP systolic 85–129; BP diastolic 53–70
[2016-02-13] MEDS: NS 1,000 ML IV SCH (04:23)
[2016-02-13 05:21] LABS: BASO % 0.5 % (0.0-1.0); EOS # 0.1 K/mm3 (0.0-0.50); EOS % 1.6 % (0.0-3.0); LARGE UNSTAINED CELL # 0.2 K/mm3 (0.0-0.4); LARGE UNSTAINED CELL % 3.3 % (0.0-4.0); LYMPH # 1.3 K/mm3 (1.5-4.5); LYMPH % 22.1 % (24.0-44.0); MEAN CORPUSCULAR HEMOGLOBIN 33.7 pg (27.0-33.0); MEAN CORPUSCULAR HGB CONC 34.8 g/dl (32.0-36.5); MEAN CORPUSCULAR VOLUME 96.9 fl (80.0-96.0); MONO # 0.5 K/mm3 (0.0-0.8); MONO % 9.5 % (0.0-5.0); NEUTROPHILS # 3.1 K/mm3 (1.8-7.7); PLATELET COUNT, AUTOMATED 166 k/mm3 (150-450)
[2016-02-13 05:39] LABS: BILIRUBIN,DIRECT 0.2 MG/DL (0.0-0.2); CALCIUM LEVEL 8.4 MG/DL (8.8-10.2); CREATININE FOR GFR 1.64 MG/DL (0.70-1.30); GLOMERULAR FILTRATION RATE 44.1 (>42); POTASSIUM SERUM 4.7 MEQ/L (3.5-5.1)
[2016-02-13] MEDS: HumaLOG INSULIN (NovoLOG) PER UNIT SC SCH ×4 (07:30→21:00)
[2016-02-13] MEDS: CYANOCOBALAMIN 1,000 MCG/ML VIAL (J3420) IM SCH (08:09)
[2016-02-13] MEDS: DOCUSATE SODIUM 100 MG CAP PO SCH ×2 (08:09→21:25)
[2016-02-13] MEDS: HEPARIN SOD (PORCINE) 5000 UNITS/ML VIAL SC SCH ×2 (08:09→21:26)
[2016-02-13] MEDS: MULTIVITAMINS/MINERALS THERAP 1 TAB PO SCH (08:09)
[2016-02-13] MEDS: PANTOPRAZOLE 40MG TAB (PROTONIX) PO SCH (08:09)
[2016-02-13] MEDS ORDERED: NS 1,000 ML IV SCH (09:07)
--- NOTE | 2016-02-13 11:13 | IPN ---
DATE: 02/13/2016 TIME: 0910 hours Patient has been seen and examined at the bedside. No acute events overnight. The patient is still delirious and stating that last time he visited his parents was two months ago and he does not want his parents to know that he is in the hospital. Otherwise, he does remember the resident and the medical student who came to see him yesterday. He denies any fever or chills, any chest pain, trouble breathing, abdominal pains, nausea, vomiting, diarrhea, or constipation, or any problems with urination. PHYSICAL EXAMINATION: VITAL SIGNS: Temperature 96.8, pulse 56, respirations 18, blood pressure 115/66 , oxygen saturation 98% on room air. GENERAL: Demented elderly male who is however alert, awake, oriented times three. Does not appear to be in distress. Resting comfortably in bed with the head elevated at 60 degrees. HEENT: Normocephalic, atraumatic. Extraocular motors intact. Mucous moist. NECK: Supple. No neck lymphadenopathy. CARDIOVASCULAR: Regular rate and rhythm, S1 and S2. No murmur, rubs, or gallops. LUNGS: Clear to auscultation bilaterally. No wheezing, rales, or rhonchi. ABDOMEN: Positive bowel sounds. Soft, nontender, nondistended. No peritoneal signs. No ecchymosis. EXTREMITIES: No edema, clubbing, or cyanosis. SKIN: Warm and dry. NEUROLOGIC: Cranial nerves II-XII intact. No focal neurological deficits. LABORATORIES: WBC 5, hemoglobin 12.4, hematocrit 35.6 with a platelet count 166 , MCV 96.9. Sodium 141, potassium 4.7, chloride 111, bicarbonate 23, anion gap 7, BUN 52, creatinine 1.64 improved from day prior, before it was 2.45, GFR 44.1, fasting glucose 101, calcium 8.4, direct bilirubin 0.2. The patient's urinalysis yesterday only showed trace ketones. The patient's random creatinine was 164, sodium was 95. The patient's blood cultures times two are pending. Urine culture is pending. The patient had a renal ultrasound yesterday which shows a few bilateral renal cysts and cholelithiasis, otherwise no medical renal disease. The patient had an MRI of the brain which shows generalized age appropriate parenchymal atrophy. White matter severe chronic ischemic changes. Chronic ethmoid and maxillary sinusitis. No evidence of acute intracranial pathology. ASSESSMENT/PLAN: 75-year-old male with past medical history of type 2 diabetes, hypertension, hyperlipidemia, dementia, osteoarthritis, recent falls, alcohol usage, gastroesophageal reflux disease (GERD), hiatal hernia, Schatzki ring, hemorrhoids and diverticulosis, sinus bradycardia, who presented with: 1. Altered mental status, possibly secondary to progression of Alzheimer's dementia versus metabolic encephalopathy versus vascular dementia and stroke. At this point, the MRI did not show any acute findings. Did not show any stroke on MRI of the brain or the CT of the head. Most likely cause right now is Alzheimer's dementia. The patient is still delirious today and we are waiting for patient and family services (PFS) to see the patient for possible placement. 2. Acute kidney injury due to prerenal azotemia with creatinine initially of 2.45. Today it has improved significantly to 1.64. Will continue to monitor the patient. Will continue one more day of gentle hydration and will stop IV fluids tomorrow due to the patient eating and drinking. The patient's renal ultrasound did not show any medical renal disease or any obstruction. The patient's fractional excretion of sodium (FENa) has been calculated and it was close to 1. Will continue gentle IV fluid rehydration. The patient is on a regular diet however. 3. Anemia with hemoglobin of 19.8, MCV 94.5. Patient did have a slightly low B12 level when he was checked a week before admission. Will continue B12 shots and supplements. 4. Type 2 diabetes. Patient's metformin has been on hold due to acute kidney injury. Continue insulin sliding scale. 5. Hypotension. Blood pressure initially was 80/56. Currently the patient's blood pressure is 115/66, stable. Continue to monitor. Continue to hold blood pressure medications for now. 6. Hyperlipidemia. Continue statin therapy. 7. Dementia, likely Alzheimer type. Will need to obtain records from Dr. Rico's office. Patient possibly will need placement. 8. Osteoarthritis. Continue Tylenol. 9. Frequent falls. Continue fall precautions. 10. History of alcohol usage. Level has been negative. Continue to monitor. 11. History of gastroesophageal reflux disease (GERD), hiatal hernia, Schatzki ring, hemorrhoids and diverticulosis. Continue to monitor. 12. History of sinus bradycardia. Heart rate today was also in the 50s. Continue to monitor. 13. Deep venous thrombosis (DVT) prophylaxis with heparin 5000 units subcutaneously every 12 hours. DISPOSITION: Will continue to follow PFS and physical therapy recommendations. Patient will likely need placement. The patient has been discussed with attending doctor, Dr. Ramos. My preceptor for this patient encounter was Dr. Ainsley Ramos. The preceptor was physically present in the building during the encounter and was fully available. As needed, all aspects of the patient interview, examination, medical decision making process, and medical care plan development were reviewed and approved by the preceptor. The preceptor is aware and concurs with the plan as stated in the body of this note and will attest to such by his/her cosignature. KASEY
[2016-02-13] MEDS: ATORVASTATIN 20 MG TAB PO SCH (11:26)
[2016-02-13] MEDS: LORazepam 2 MG/ML VIAL (J2060) IV PRN (19:31)
[2016-02-13] MEDS: QUEtiapine FUMARATE 12.5 MG HALF-TAB PO SCH (21:25)
[2016-02-14 02:39] VITALS: BP 103/64
[2016-02-14 06:00] VITALS: BP_SYST 102; BP_SYST 120; BP_SYST 96; BP_DIAS 60; BP_DIAS 62; BP_DIAS 77
[2016-02-14 06:08] LABS: BASO % 0.5 % (0.0-1.0); EOS # 0.1 K/mm3 (0.0-0.50); EOS % 2.4 % (0.0-3.0); LARGE UNSTAINED CELL # 0.1 K/mm3 (0.0-0.4); LARGE UNSTAINED CELL % 1.7 % (0.0-4.0); LYMPH # 1.6 K/mm3 (1.5-4.5); LYMPH % 28.1 % (24.0-44.0); MEAN CORPUSCULAR HEMOGLOBIN 33.3 pg (27.0-33.0); MEAN CORPUSCULAR HGB CONC 34.6 g/dl (32.0-36.5); MEAN CORPUSCULAR VOLUME 96.1 fl (80.0-96.0); MONO # 0.5 K/mm3 (0.0-0.8); MONO % 8.9 % (0.0-5.0); NEUTROPHILS # 3.2 K/mm3 (1.8-7.7); NEUTROPHILS % 58.4 % (36.0-66.0); PLATELET COUNT, AUTOMATED 164 k/mm3 (150-450); RED CELL DISTRIBUTION WIDTH 13.1 % (11.5-14.5); WHITE BLOOD COUNT 5.4 K/mm3 (4.0-10.0)
[2016-02-14 06:32] LABS: ANION GAP 6 MEQ/L (8-16); BLOOD UREA NITROGEN 34 MG/DL (7-18); CALCIUM LEVEL 8.9 MG/DL (8.8-10.2); CARBON DIOXIDE LEVEL 24 MEQ/L (21-32); CHLORIDE LEVEL 111 MEQ/L (98-107); CREATININE FOR GFR 1.19 MG/DL (0.70-1.30); GLOMERULAR FILTRATION RATE > 60.0 (>42); GLUCOSE, FASTING 100 MG/DL (83-110); POTASSIUM SERUM 4.2 MEQ/L (3.5-5.1); SODIUM LEVEL 141 MEQ/L (136-145)
[2016-02-14] MEDS: HumaLOG INSULIN (NovoLOG) PER UNIT SC SCH ×4 (07:23→20:48)
--- NOTE | 2016-02-14 09:53 | IPNPDOC ---
Assessment/Plan Date Seen The patient was seen on 02/14/16. Problems Problems: (1) Dementia Status: Chronic Problem Text: has a mini mental score of 22, lost points in immediate recall , and short term recall and spelling back duarte. will continue with seroquel for agitation and for sleep, will need fdc placement. (2) OSMIN (acute kidney injury) Status: Acute Problem Text: prerenal from poor intake improved with IVF was initially hypotensive improved with ivf. (3) Hyperlipidemia Status: Chronic Problem Text: continue statin (4) Diabetes Status: Chronic Problem Text: will check A1c. continue sliding scale insulin. (5) GERD (gastroesophageal reflux disease) Status: Chronic Problem Text: continue PPI (6) Frequent falls Status: Chronic Problem Text: due to generalized muscular deconditioning. PT evaluation. (7) Sinus bradycardia Status: Chronic (8) Vitamin B 12 deficiency Status: Chronic Problem Text: on im vit b 12 will check levels. Plan / VTE VTE Prophylaxis Ordered?: Yes Subjective CC/HPI The patient is a 75-year-old male admitted with a reason for visit of Acute Kidney Injury. Events since last encounter patient was intermittently agitated and confused last night wanting to go home, no other complaints Objective General Exam: : Alert: Cooperative: No Acute Distress Eye Exam: : Conjunctiva & lids normal: EOMI: PERRLANo: Sclera icteric ENT Exam: : Atraumatic: Mucous membr. moist/pink: Pharynx Normal Chest Exam: : Clear to auscultation: Normal air movement Heart Exam: : Normal S1: Normal S2: Rate Normal: Regular RhythmNo: Murmurs, Rubs Abdomen Exam: : Normal bowel sounds: SoftNo: Hepatospenomegaly, Tenderness Extremity Exam: : Normal pulsesNo: Clubbing, Cyanosis, Edema Vital Signs I&O Vital Sign - Last 24 Hours 02/13/16 02/13/16 02/13/16 02/13/16 08:00 10:50 11:43 14:00 Temp 96.8 97.0 97.4 Pulse 56 56 58 Resp 18 18 18 B/P 115/66 128/63 113/68 Pulse Ox 98 100 99 O2 Delivery Room Air Room Air Room Air Room Air 02/13/16 02/14/16 21:30 02:39 Pulse 50 Resp 16 B/P 103/64 Pulse Ox 96 O2 Delivery Room Air Room Air I&O- Last 24 Hours up to 6 AM 02/14/16 06:00 Intake Total 840 ml Output Total 475 ml Balance 365 ml Laboratory Data Labs 24H Laboratory Tests 2 02/13/16 11:49: Bedside Glucose (Misc Panel) 124H 02/13/16 17:27: Bedside Glucose (Misc Panel) 93 02/14/16 05:38: Anion Gap 6L, White Blood Count 5.4, Red Blood Count 3.67L, Hemoglobin 12.2L, Hematocrit 35.3L, Mean Corpuscular Volume 96.1H, Mean Corpuscular Hemoglobin 33.3H, Mean Corpuscular Hemoglobin Concent 34.6, Red Cell Distribution Width 13.1, Platelet Count 164, Neutrophils (%) (Auto) 58.4, Lymphocytes (%) (Auto) 28.1, Monocytes (%) (Auto) 8.9H, Eosinophils (%) (Auto) 2.4, Basophils (%) (Auto ) 0.5, Neutrophils # (Auto) 3.2, Lymphocytes # (Auto) 1.6, Monocytes # (Auto) 0.5, Eosinophils # (Auto) 0.1, Basophils # (Auto) 0.0, Blood Urea Nitrogen 34H, Creatinine 1.19, Sodium Level 141, Potassium Level 4.2, Chloride Level 111H, Carbon Dioxide Level 24, Calcium Level 8.9, Glomerular Filtration Rate > 60.0, Large Unclassified Cells # 0.1, Large Unclassified Cells % 1.7 CBC/BMP Laboratory Tests 02/14/16 05:38 Calcium Level 8.9, Red Blood Count 3.67 L, Mean Corpuscular Volume 96.1 H, Mean Corpuscular Hemoglobin 33.3 H, Mean Corpuscular Hemoglobin Concent 34.6, Red Cell Distribution Width 13.1, Neutrophils (%) (Auto) 58.4, Lymphocytes (%) (Auto ) 28.1, Monocytes (%) (Auto) 8.9 H, Eosinophils (%) (Auto) 2.4, Basophils (%) ( Auto) 0.5, Neutrophils # (Auto) 3.2, Lymphocytes # (Auto) 1.6, Monocytes # (Auto ) 0.5, Eosinophils # (Auto) 0.1, Basophils # (Auto) 0.0 FSBS Laboratory Tests Test 02/13/16 11:49 02/13/16 17:27 Range/Units Bedside Glucose (Misc Panel) 124 93 83-110 MG/DL Medications Medications Current Medications Medications Dose Ordered Sig/Donnie Route PRN Reason Start Time Stop Time Status Last Admin Dose Admin Acetaminophen 650 mg Q4HP PRN PO MILD PAIN OR FEVER 02/12/16 17:45 03/13/16 17:44 Atorvastatin Calcium 20 mg DAILY PO 02/13/16 09:00 03/14/16 08:59 02/13/16 11:26 20 MG Cyanocobalamin 1,000 mcg DAILY IM 02/12/16 09:00 03/13/16 08:59 02/13/16 08:09 1,000 MCG Dextrose 25 ml ASDIRECTED PRN IV SEE LABEL COMMENTS 02/12/16 18:30 03/13/16 18:29 Docusate Sodium 100 mg BID PO 02/12/16 21:00 03/13/16 20:59 02/13/16 21:25 100 MG Glucagon 1 mg ASDIRECTED PRN SC SEE LABEL COMMENTS 02/12/16 18:30 03/13/16 18:29 Glucose 16 GM ASDIRECTED PRN PO SEE LABEL COMMENTS 02/12/16 18:30 03/13/16 18:29 Heparin Sodium (Porcine) 5,000 units Q12H SC 02/12/16 21:00 02/17/16 20:59 02/13/16 21:26 5,000 UNITS Insulin Human Lispro SEE PROTOCOL TABLE AC SC 02/13/16 07:30 03/14/16 07:29 02/13/16 12:01 2 UNITS Insulin Human Lispro SEE PROTOCOL TABLE QHS SC 02/12/16 21:00 03/13/16 20:59 Lorazepam 1 mg Q6HP PRN IV ANXIETY/AGITATION 02/13/16 19:30 02/20/16 19:29 02/13/16 19:31 1 MG Multivitamins 2 tab DAILY PO 02/12/16 09:00 03/13/16 08:59 02/13/16 08:09 2 TAB Ondansetron HCl 4 mg Q6HP PRN IV NAUSEA OR VOMITING 02/12/16 17:45 03/13/16 17:44 Pantoprazole Sodium 40 mg DAILY PO 02/13/16 09:00 03/14/16 08:59 02/13/16 08:09 40 MG Quetiapine Fumarate 12.5 mg BID PO 02/13/16 21:00 03/14/16 20:59 02/13/16 21:25 12.5 MG Allergies Coded Allergies: Sulfa Antibiotics (Unverified Allergy, Unknown, 02/12/16) MAYRA HURLEY MD Feb 14, 2016 08:17
[2016-02-14] MEDS: DOCUSATE SODIUM 100 MG CAP PO SCH ×2 (10:59→20:52)
[2016-02-14] MEDS: PANTOPRAZOLE 40MG TAB (PROTONIX) PO SCH (10:59)
[2016-02-14] MEDS: ATORVASTATIN 20 MG TAB PO SCH (10:59)
[2016-02-14] MEDS: MULTIVITAMINS/MINERALS THERAP 1 TAB PO SCH (10:59)
[2016-02-14] MEDS: QUEtiapine FUMARATE 12.5 MG HALF-TAB PO SCH ×2 (10:59→20:52)
[2016-02-14] MEDS: CYANOCOBALAMIN 1,000 MCG/ML VIAL (J3420) IM SCH (11:00)
[2016-02-14] MEDS: HEPARIN SOD (PORCINE) 5000 UNITS/ML VIAL SC SCH ×2 (11:00→20:53)
[2016-02-14] MEDS: LORazepam 2 MG/ML VIAL (J2060) IV PRN ×2 (12:21→18:47)
[2016-02-14 14:00] VITALS: BP 114/73
--- NOTE | 2016-02-14 21:04 | EDDOCDS ---
Nurse's Notes [facility] Name: Dick Loredo Age: 75 yrs Sex: Male : 1940 Arrival Date: 02/12/2016 Time: 13:28 Bed 11 Private MD: Jacky Diagnosis: Hypotension-Acute Kidney Injury;Altered mental status, unspecified Presentation: 02/11 13:32 Presenting complaint: Patient states: dr Rico office sent pt here for a mental 4 health evaluation per meño however pt doesn't know this , she states he will "snap" if he knows that's why he is here , he has dementia unable to tell what time of day worse in the evening, sl;eeps during day, up all night confused thinks his parents are alive, landlord called adult protective pt is driving still landlord has had to call the police as he is unsafe , brother in [place] only family he has and really cannot help. Mental Health Triage Level Level 1- Pt displays no suicidal or homicidal ideations and does not appear to be a danger to self or others. Suicide/Homicide risk assessment- Unable to assess. Status: Patient is not a travel services professional or dependent. Transition of care: patient was not received from another setting of care. 13:32 Acuity: ANTHONY Level 3 mk4 13:32 Method Of Arrival: Walkin/Carried/Asstd mk4 13:45 Presenting complaint:. mk4 Triage Assessment: 13:37 General: Appears in no apparent distress. mk4 13:39 Pain: Denies pain. mk4 Historical: - Allergies: Sulfa (Sulfonamide Antibiotics); - Home Meds: 1. Lipitor 20 mg Oral tab 1 tab once daily 2. metformin 500 mg Oral tab 1 tab 2 times per day 3. Starlix 60 mg Oral tab 2 tabs daily 4. Naproxen Oral unknown 5. Angelita Oral Unknown unknown - PMHx: Diabetes - NIDDM: controlled; hyperlipidemia; Hypertension; - PSHx: none; - Social history: No barriers to communication noted, The patient speaks fluent Kazakh, Smoking status: Patient states former smoker of tobacco. - Family history: Not pertinent. - : The pt / caregiver states he / she is not on anticoagulants. Home medication list is obtained from the patient. - Exposure Risk Screening:: None identified. Screenin:36 Screening information is obtained from the patient. Fall risk: No risks identified. ml6 Assistance ADL's: requires no assistance with activities of daily living. Abuse/DV Screen: The patient / caregiver reports he/she is: not in a situation that causes fear, pain or injury. Nutritional screening: No deficits noted. Advance Directives: Currently, there is no health care proxy. home support is adequate. Assessment: 13:45 General: Appears in no apparent distress, Behavior is appropriate for age, cooperative. ml6 Pain: Denies pain. Neurological: Level of Consciousness is awake, confused, Oriented to person, Lofter are equal bilaterally Moves all extremities. Full function Gait is steady, Speech is normal, Facial symmetry appears normal, Pupils are PERRLA. Cardiovascular: No deficits noted. Capillary refill < 3 seconds is brisk in bilateral fingers toes Heart tones S1 S2 present. Respiratory: No deficits noted. Airway is patent Respiratory effort is even, unlabored, Respiratory pattern is regular, symmetrical, Breath sounds are clear bilaterally. GI: No deficits noted. 14:50 Reassessment: Patient appears in no apparent distress at this time. Patient states ml6 symptoms have not improved. no change from previous assessment, patient remains confused, denies pain or discomfort. 15:45 Reassessment: Patient appears in no apparent distress at this time. Patient denies pain ml6 at this time. Patient states symptoms have not improved. no change from previous, patient confused and alert. 16:55 General: Appears in no apparent distress, Behavior is appropriate for age, cooperative. ml6 Pain: Denies pain. Neurological: Level of Consciousness is awake, confused, Oriented to person, Lofter are equal bilaterally Moves all extremities. Full function Gait is steady, Speech is normal, Facial symmetry appears normal, Pupils are PERRLA. Cardiovascular: No deficits noted. Capillary refill < 3 seconds is brisk in bilateral fingers toes. Respiratory: No deficits noted. GI: No deficits noted. 18:02 Reassessment: Patient appears in no apparent distress at this time. Patient denies pain ml6 at this time. Patient states symptoms have not improved. 19:55 General: Appears in no apparent distress, comfortable, Behavior is cooperative, mlc pleasant, pt returned from MRI. Pain: Denies pain. Neurological: Level of Consciousness is awake, confused, obeys commands, Oriented to person. Respiratory: Airway is patent Respiratory effort is even, unlabored, Respiratory pattern is regular. Derm: Skin is normal. Vital Signs: 13:32 BP 80 / 56; Pulse 62; Resp 18 S; Temp 97.0(T); Pulse Ox 100% on R/A; Weight 72.57 kg gr2 (R); Height 6 ft. 0 in. (182.88 cm) (R); Pain 0/10; 13:46 BP 99 / 55 (auto/); Pulse 52; Resp 16; Pulse Ox 98% on R/A; Pain 0/10; ml6 14:31 BP 88 / 58 (auto/); ml6 14:31 Pulse 58 MON; Resp 16; Pulse Ox 100% on R/A; Pain 0/10; ml6 15:00 BP 105 / 54; Pulse 57; Resp 16; Pulse Ox 98% on R/A; Pain 0/10; ml6 16:00 BP 107 / 58; Pulse 55; Resp 16; Pulse Ox 98% on R/A; Pain 0/10; ml6 18:00 BP 118 / 61; Pulse 58; Resp 18; Temp 97.8(O); Pulse Ox 98% on R/A; Pain 0/10; ml6 20:01 BP 97 / 56; Pulse 59; Resp 18; Temp 98.1(TE); Pulse Ox 99% on R/A; Pain 0/10; mlc 13:32 Body Mass Index 21.70 (72.57 kg, 182.88 cm) gr2 Vitals: 13:32 Log In Time: February 12, 2016 at 13:32. gr2 13:39 Does not meet SIRS criteria. mk4 ED Course: 13:31 Patient visited by Rivera Schneider. gr2 13:31 Patient moved to Waiting gr2 13:32 Jacky is Private Physician. gr2 13:37 Patient visited by Rivera Schneider. gr2 13:37 Triage Initiated mk4 13:37 Patient moved to Pre RCE gr2 13:40 Patient moved to 11 [facility] 13:49 Shirin Aquino MD is Attending Physician. br1 13:58 Patient visited by Shirin Aquino MD. br1 14:28 Patient visited by Cyrus Javier. dem1 14:28 EKG done. (by ED staff). Reviewed by Shirin Aquino MD. dem1 14:33 Troponin Sent. ml6 14:37 Inserted peripheral IV: 20gauge IV in right antecubital area and blood collected. ml6 Patient tolerated the procedure well. inserted by kenzie Carlson RN. 14:52 Patient visited by Paxton Grimaldo, RN. ml6 15:06 [facility] Payment Agreement was scanned into [employer] and attached to record. mm15 15:12 Patient name changed from Dick\\S\\\\S\\Loredo\\S\\ to Dick\\S\\ \\S\\Loredo. EDMS 15:23 Patient visited by Paxton Grimaldo, RN. ml6 15:25 Cori Sahni is Hospitalizing Provider. br1 15:29 CT Head Without Contrast Returned. EDMS 15:29 Chest, 1 View Returned. EDMS 18:15 Patient moved to Ultrasound hgl 18:40 Patient moved to 11 hgl 18:41 Patient visited by Cyrus Javier. dem1 18:41 Diet: Patient given regular meal. dem1 18:42 The patient / caregiver is instructed regarding the plan of care and ED course. ml6 18:42 No procedures done that require assistance. ml6 18:58 Mary Dey,RN is Primary Nurse. mlc 19:08 Patient visited by Chadd Atwood PCA. kb5 19:13 RENAL US Returned. EDMS 19:56 Patient visited by Mary Dey,BRYCE. mlc 20:07 EKG-ADULT Returned. EDMS 1104 03:52 T-Sheet-- Draft Copy was scanned into [employer] and attached to record. lja 09:18 ECG/EKG was scanned into [employer] and attached to record. gb 09:19 Radiology Report was scanned into [employer] and attached to record. gb Administered Medications: 02/11 14:31 Drug: NS 0.9% 500 ml [sodium chloride 0.9 % intravenous solution] Route: IV; Rate: nr1 bolus; Site: right antecubital; 15:30 Follow up: IV Status: Completed infusion; Infusion discontinued; IV Intake: 500ml ml6 15:13 Drug: NS 0.9% 1000 ml [sodium chloride 0.9 % intravenous solution] Route: IV; Rate: 150 ml6 mL/hr; Site: right antecubital; Intake: 15:30 IV: 500.00ml; Total: 500.00ml. ml6 Order Results: Lab Order: Acetaminophen Level; SPEC'M 02/12/16 14:24 Test: ACETAMINOPHEN LEVEL; Value: < 2.0; Range: 10.0-30.0; Abnormal: Below low normal; Units: UG/ML; Status: F Lab Order: CBC with Diff; SPEC'M 02/12/16 14:25 Test: WHITE BLOOD COUNT; Value: 7.1; Range: 4.0-10.0; Units: K/mm3; Status: F Test: RED BLOOD COUNT; Value: 4.17; Range: 4.30-6.10; Abnormal: Below low normal; Units: M/mm3; Status: F Test: HEMOGLOBIN; Value: 13.8; Range: 14.0-18.0; Abnormal: Below low normal; Units: g/dl; Status: F Test: HEMATOCRIT; Value: 39.4; Range: 42.0-52.0; Abnormal: Below low normal; Units: %; Status: F Test: MEAN CORPUSCULAR VOLUME; Value: 94.5; Range: 80.0-96.0; Units: fl; Status: F Test: MEAN CORPUSCULAR HEMOGLOBIN; Value: 33.0; Range: 27.0-33.0; Units: pg; Status: F Test: MEAN CORPUSCULAR HGB CONC; Value: 34.9; Range: 32.0-36.5; Units: g/dl; Status: F Test: RED CELL DISTRIBUTION WIDTH; Value: 13.0; Range: 11.5-14.5; Units: %; Status: F Test: PLATELET COUNT, AUTOMATED; Value: 219; Range: 150-450; Units: k/mm3; Status: F Test: NEUTROPHILS %; Value: 63.5; Range: 36.0-66.0; Units: %; Status: F Test: LYMPH %; Value: 22.7; Range: 24.0-44.0; Abnormal: Below low normal; Units: %; Status: F Test: MONO %; Value: 9.7; Range: 0.0-5.0; Abnormal: Above high normal; Units: %; Status: F Test: EOS %; Value: 0.8; Range: 0.0-3.0; Units: %; Status: F Test: BASO %; Value: 0.5; Range: 0.0-1.0; Units: %; Status: F Test: LARGE UNSTAINED CELL %; Value: 2.8; Range: 0.0-4.0; Units: %; Status: F Test: NEUTROPHILS #; Value: 4.5; Range: 1.8-7.7; Units: K/mm3; Status: F Test: LYMPH #; Value: 1.8; Range: 1.5-4.5; Units: K/mm3; Status: F Test: MONO #; Value: 0.7; Range: 0.0-0.8; Units: K/mm3; Status: F Test: EOS #; Value: 0.0; Range: 0.0-0.50; Units: K/mm3; Status: F Test: BASO #; Value: 0.0; Range: 0.0-0.2; Units: K/mm3; Status: F Test: LARGE UNSTAINED CELL #; Value: 0.2; Range: 0.0-0.4; Units: K/mm3; Status: F Lab Order: Cardiac Injury Profile; SPEC'M 02/12/16 14:24 Test: CPK CREATINE PHOSPHOKINASE; Value: 123; Range: 39-308; Units: U/L; Status: F Test: CK-MB VALUE MASS; Value: 1.3; Range: 0.0-3.6; Units: NG/ML; Status: F Test: MB/CK RELATIVE INDEX; Value: 1.05; Range: < OR =4; Status: F Test Note: ; DIAGNOSIS CRITERIA MMB ng/ml Relative Index (RI) NON-AMI < or = 5 N/A VANCE ZONE > 5 < or = 4 AMI > 5 > 4 Lab Order: Drug Eval Toxicology ED Only; SPEC'M 02/12/16 14:25 Test: AMPHETAMINES LEVEL URINE; Value: NEGATIVE; Range: NEGATIVE; Status: F Test: M-AMPHETAMINES LEVEL URINE; Value: NEGATIVE; Range: NEGATIVE; Status: F Test: BARBITURATES URINE; Value: NEGATIVE; Range: NEGATIVE; Status: F Test: BENZODIAZEPINES URINE; Value: NEGATIVE; Range: NEGATIVE; Status: F Test: CANNABINOIDS URINE; Value: NEGATIVE; Range: NEGATIVE; Status: F Test: COCAINE METABOLITE URINE; Value: NEGATIVE; Range: NEGATIVE; Status: F Test: OPIATES URINE; Value: NEGATIVE; Range: NEGATIVE; Status: F Test: PHENCYCLIDINE URINE; Value: NEGATIVE; Range: NEGATIVE; Status: F Test: TRICYCLIC ANTIDEPRESS URINE; Value: NEGATIVE; Range: NEGATIVE; Status: F Test Note: ; ALL PRESUMPTIVE POSITIVE FINDINGS ARE UNCONFIRMED NORMAL VALUES THRESHOLD IN NG/ML AMPHETAMINES 1000 METHAMPHETAMINES 1000 BARBITURATES 300 BENZODIAZEPINES 300 CANNABINOIDS (THC) 50 COCAINE METABOLITE 300 METHADONE 300 OPIATES 300 PHENCYCLIDINE 25 TRICYCLIC ANTIDEPRESSANTS 1000 RESULTS ARE FOR MEDICAL PURPOSES ONLY. ALL URINE SPECIMENS WILL BE SAVED FOR 3 DAYS. IF CONFIRMATION OF A PRESUMPTIVE POSTIVE SCREEN RESULT IS DESIRED, CALL CHEMISTRY ([phone]) AND REQUEST URINE TO BE SENT TO REFERENCE LAB. FOR A LIST OF CLOSELY RELATED COMPOUNDS PLEASE CALL THE LAB. Lab Order: Liver Profile; SPEC'M 02/12/16 14:24 Test: AST/SGOT; Value: 28; Range: 15-37; Units: U/L; Status: F Test: ALT/SGPT; Value: 25; Range: 12-78; Units: U/L; Status: F Test: ALKALINE PHOSPHATASE; Value: 72; Range: 45-117; Units: U/L; Status: F Test: BILIRUBIN,TOTAL; Value: 0.8; Range: 0.2-1.0; Units: MG/DL; Status: F Test: BILIRUBIN,DIRECT; Value: 0.3; Range: 0.0-0.2; Abnormal: Above high normal; Units: MG/DL; Status: F Test: TOTAL PROTEIN; Value: 7.1; Range: 6.4-8.2; Units: GM/DL; Status: F Test: ALBUMIN; Value: 4.3; Range: 3.2-5.2; Units: GM/DL; Status: F Test: ALBUMIN/GLOBULIN RATIO; Value: 1.54; Range: 1.00-1.93; Status: F Lab Order: MED Profile; SPEC'M 02/12/16 14:24 Test: GLUCOSE, FASTING; Value: 101; Range: 83-110; Units: MG/DL; Status: F Test: BLOOD UREA NITROGEN; Value: 76; Range: 7-18; Abnormal: Above high normal; Units: MG/DL; Status: F Test: CREATININE FOR GFR; Value: 2.45; Range: 0.70-1.30; Abnormal: Above high normal; Units: MG/DL; Status: F Test: GLOMERULAR FILTRATION RATE; Value: 27.7; Range: >42; Abnormal: Below low normal; Status: F Test: SODIUM LEVEL; Value: 138; Range: 136-145; Units: MEQ/L; Status: F Test: POTASSIUM SERUM; Value: 4.7; Range: 3.5-5.1; Units: MEQ/L; Status: F Test: CHLORIDE LEVEL; Value: 104; Range: 98-107; Units: MEQ/L; Status: F Test: CARBON DIOXIDE LEVEL; Value: 24; Range: 21-32; Units: MEQ/L; Status: F Test: ANION GAP; Value: 10; Range: 8-16; Units: MEQ/L; Status: F Test: CALCIUM LEVEL; Value: 9.5; Range: 8.8-10.2; Units: MG/DL; Status: F Test Note: ; Units are mL/min/1.73 m2 Chronic Kidney Disease Staging per NKF: Stage I & II GFR >=60 Normal to Mildly Decreased Stage III GFR 30-59 Moderately Decreased Stage IV GFR 15-29 Severely Decreased Stage V GFR <15 Very Little GFR Left ESRD GFR <15 on SCOURING TRAIN OPERATOR CHIEF Lab Order: Salicylate Level; SPEC' 02/12/16 14:24 Test: SALICYLATE LEVEL; Value: < 1.7; Range: 5.0-30.0; Abnormal: Below low normal; Units: MG/DL; Status: F Lab Order: Thyroid Stimulating Hormone; SPEC'M 02/12/16 14:24 Test: THYROID STIMULATING HORMONE; Value: 3.170; Range: 0.358-3.740; Units: uIU/ML; Status: F Lab Order: Troponin; SPEC'M 02/12/16 14:24 Test: TROPONIN I; Value: < 0.02; Range: < 0.10; Units: NG/ML; Status: F Test Note: ; Troponin I Reference Interval for [employer] LOCI: 99th Percentile= 0.00-0.045 ng/ml Risk Stratification: <= 0.10 ng/ml Decreased Risk for Adverse Clinical Events. 0.10-1.50 ng/ml Increased Risk for Adverse Clinical Events. Evaluation of additional criterion and/or repeat testing in 2-6 hours is suggested to rule out myocardial damage. >= 1.50 ng/ml Indicative of Myocardial Injury. Lab Order: Urinalysis; SPEC'M 02/12/16 14:25 Test: APPEARANCE, URINE; Value: CLEAR; Range: CLEAR; Status: F Test: COLOR, URINE; Value: YELLOW; Range: YELLOW; Status: F Test: PH,URINE; Value: 5.0; Range: 5.0-9.0; Units: UNITS; Status: F Test: SPECIFIC GRAVITY URINE AUTO; Value: 1.016; Range: 1.002-1.035; Status: F Test: PROTEIN, URINE AUTO; Value: NEGATIVE; Range: NEGATIVE; Units: mg/dL; Status: F Test: GLUCOSE, URINE (UA) AUTO; Value: NEGATIVE; Range: NEGATIVE; Units: mg/dL; Status: F Test: KETONE, URINE AUTO; Value: TRACE; Range: NEGATIVE; Abnormal: Above high normal; Units: mg/dL; Status: F Test: UROBILINOGEN, URINE AUTO; Value: 0.2; Range: 0.0-2.0; Units: mg/dL; Status: F Test: BILIRUBIN, URINE AUTO; Value: NEGATIVE; Range: NEGATIVE; Status: F Test: NITRITE, URINE AUTO; Value: NEGATIVE; Range: NEGATIVE; Status: F Test: LEUKOCYTE ESTERASE, URINE AUTO; Value: NEGATIVE; Range: NEGATIVE; Status: F Test: BLOOD, URINE BLOOD; Value: NEGATIVE; Range: NEGATIVE; Status: F Test: WBC, URINE AUTO; Value: 2; Range: 0-3; Units: /HPF; Status: F Test: RBC, URINE AUTO; Value: 1; Range: 0-3; Units: /HPF; Status: F Test: BACTERIA, URINE AUTO; Value: NEGATIVE; Range: NEGATIVE; Status: F Test: SQUAMOUS EPITHELIAL CELL UR AU; Value: 1; Range: 0-6; Units: /HPF; Status: F Test: MUCUS, URINE; Value: SMALL; Range: NEGATIVE; Status: F Test: HYALINE CAST, URINE AUTO; Value: 4; Range: 0-1; Units: /LPF; Status: F Lab Order: SODIUM,RANDOM URINE; SPEC'M 02/12/16 17:43 Test: SODIUM,RANDOM URINE; Value: 95; Units: MEQ/L; Status: F Lab Order: CREATININE,RANDOM URINE; SPEC'M 02/12/16 17:43 Test: CREATININE,RANDOM URINE; Value: 164.0; Units: MG/DL; Status: F Lab Order: ETHYL ALCOHOL (ETHANOL); SPEC'M 02/12/16 14:24 Test: ETHYL ALCOHOL (ETHANOL); Value: < 0.003; Range: 0.000-0.010; Units: %; Status: F Lab Order: PHOSPHOROUS LEVEL; SPEC'M 02/12/16 14:24 Test: PHOSPHORUS LEVEL; Value: 2.1; Range: 2.5-4.9; Abnormal: Below low normal; Units: MG/DL; Status: F Lab Order: MAGNESIUM LEVEL; SPEC'M 02/12/16 14:24 Test: MAGNESIUM LEVEL; Value: 1.8; Range: 1.8-2.4; Units: MG/DL; Status: F Radiology Order: CT Head Without Contrast Test: CT Head Without Contrast REASON FOR EXAMINATION: altered mental status; CT HEAD WITHOUT CONTRAST:; ; HISTORY: Altered mental status.; ; COMPARISON: 03/28/2015; ; An area of decreased attenuation is present in the right basal ganglia. This; represents an old lacunar infarction. Areas of decreased attenuation are present; in the periventricular and subcortical white matter. This represents small vessel; ischemic disease. There is no intraparenchymal hemorrhage, mass or midline shift.; The ventricular system and cortical sulci are dilated consistent with moderate; volume loss. There is no extracerebral collection. The visualized sinuses are; clear.; ; IMPRESSION:; ; 1. Old right basal ganglia lacunar infarction.; ; 2. Small vessel ischemic disease.; ; 3. Moderate volume loss.; ; ; Signed by; Dick Banks MD 02/12/2016 03:16 P; Radiology Order: Chest, 1 View Test: Chest, 1 View REASON FOR EXAMINATION: altered mental status; PA CHEST X-RAY:; ; Single view.; ; HISTORY: Altered mental status.; ; Comparison study March 28, 2015.; ; FINDINGS: EKG monitoring electrodes overlie the chest. Heart is not enlarged.; Aorta us slightly tortuous. Pulmonary vasculature is not increased. 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; : 1940 Requested By: SHIRIN Arellano; Order Number: [id number] Reading MD: Dallin Cordero; Measurements; Intervals [place]; Rate: 56 P: -8; TN: 132 QRS: -23; QRSD: 90 T: 15; QT: 422; QTc: 409; Interpretive Statements; SINUS BRADYCARDIA; LEFT AXIS DEVIATION; ; Electronically Signed On 02-12-2016 19:53:21 EDT by Dallin Cordero; Radiology Order: RENAL US Test: RENAL US REASON FOR EXAMINATION: obstruction, medical renal disease; ; CLINICAL HISTORY: Possible obstruction..; TECHNIQUE: High resolution ultrasound images of the kidneys and additional; images of the bladder.; COMPARISON: None.; FINDINGS:; Right kidney: Measures 9.4 x 5.7 x 5.3 cm. Small peripheral cysts of 1.3 x 1.1 x 1.0 cm midpole and 3; .3 x 3.1 x 2.4 x cm. No evidence of; hydronephrosis or calculus.; Left kidney: Measures 11.6 x 5.6 x 5.2 cm. No evidence of hydronephrosis or renal calculus. Small upp; er pole cysts of; 1.4 x 1.2 x 1.2 cm and 1.3 x 1.3 x 1.2 cm.; Bladder: No wall thickening, intraluminal mass, or diverticula. Prostate measures 4.6 x 3.6 x 2.4 cm.; ; Incidental finding of small GB calculi up to 10 mm.; IMPRESSION: Few bilateral renal cysts. Cholelithiasis.; ; Outcome: 15:25 Decision to Hospitalize by Provider. br1 18:15 Discharge Assessment: patient administered narcotics - no. The following High Risk 6 Discharge criteria are identified: None. CT Study completed. Admission hand-off: Report Faxed Fax receipt verified by john fitch rn. Property :Personal belongings accompany Pt. 19:54 Admission hand-off: Report Faxed Fax receipt verified by BRYCE Briggs. [facility] [place] 19:55 MRI Study completed. mlc 20:02 Condition: stable. mlc 20:03 Patient left the ED. [facility] [place] Signatures: Dispatcher [employer] EDMS Rosita Singh RN RN srm Barnhardt, Allie, Reg Reg gb Angelic, Chadd, BUSINESS RULES DEVELOPER BUSINESS RULES DEVELOPER kb5 Shirin Aquino MD MD brPaxton Shaw RN RN ml6 Cyrus Javier dem1 Ly, [place] hgl Rivera Schneider gr2 Sharla Manzano mm15 Barbra Diehl RN RN mk4 Mary Dey RN RN [facility] [place] Jossy Morales RN RN nr1 Yana Martinez Corrections: (The following items were deleted from the chart) 13:46 13:32 Presenting complaint: Patient states: dr Rico office sent pt here for a mental 4 health evaluation per meño however pt doesn't know this , she states he will "snap" if he knows that's why he is here , he has dementia unable to tell what time of day worse in the evening, sl;eeps during day, up all night confused thinks his parents are alive, landlord called adult protective [facility] the [facility] as he is unsafe , brother in [place] only family mk4 Chart Complete MTDD
--- NOTE | 2016-02-14 21:04 | EDDOCDS ---
Physician Documentation [facility] Name: Jimmie Loredo Age: 75 yrs Sex: Male : 1940 Arrival Date: 02/12/2016 Time: 13:28 Bed 11 Private MD: Jacky Disposition: 02/12/16 15:25 Hospitalization ordered by Cori Sahni for Inpatient Admission. Preliminary diagnosis are Hypotension - Acute Kidney Injury, Altered mental status, unspecified. - Bed requested for PCU. - Status is Inpatient Admission. mlc - Condition is Stable. - Problem is new. - Symptoms are unchanged. Historical: - Allergies: Sulfa (Sulfonamide Antibiotics); - Home Meds: 1. Lipitor 20 mg Oral tab 1 tab once daily 2. metformin 500 mg Oral tab 1 tab 2 times per day 3. Starlix 60 mg Oral tab 2 tabs daily 4. Naproxen Oral unknown 5. Angelita Oral Unknown unknown - PMHx: Diabetes - NIDDM: controlled; hyperlipidemia; Hypertension; - PSHx: none; - Social history: No barriers to communication noted, The patient speaks fluent Jamaican, Smoking status: Patient states former smoker of tobacco. - Family history: Not pertinent. - : The pt / caregiver states he / she is not on anticoagulants. Home medication list is obtained from the patient. - Exposure Risk Screening:: None identified. Vital Signs: 02/11 13:32 BP 80 / 56; Pulse 62; Resp 18 S; Temp 97.0(T); Pulse Ox 100% on R/A; Weight 72.57 kg / gr2 159.99 lbs (R); Height 6 ft. 0 in. (182.88 cm) (R); Pain 0/10; 13:46 BP 99 / 55 (auto/); Pulse 52; Resp 16; Pulse Ox 98% on R/A; Pain 0/10; ml6 14:31 BP 88 / 58 (auto/); ml6 14:31 Pulse 58 MON; Resp 16; Pulse Ox 100% on R/A; Pain 0/10; ml6 15:00 BP 105 / 54; Pulse 57; Resp 16; Pulse Ox 98% on R/A; Pain 0/10; ml6 16:00 BP 107 / 58; Pulse 55; Resp 16; Pulse Ox 98% on R/A; Pain 0/10; ml6 18:00 BP 118 / 61; Pulse 58; Resp 18; Temp 97.8(O); Pulse Ox 98% on R/A; Pain 0/10; ml6 20:01 BP 97 / 56; Pulse 59; Resp 18; Temp 98.1(TE); Pulse Ox 99% on R/A; Pain 0/10; mlc 13:32 Body Mass Index 21.70 (72.57 kg, 182.88 cm) gr2 MDM: 14:00 Director Of Enterprise Architecture/Pulse Ox/q 15 min VS ordered. br1 14:00 IV Saline Lock ordered. br1 14:00 Rhythm Strip to chart ordered. br1 14:00 NS 0.9% 500 ml IV at bolus once ordered. br1 14:00 Undress patient ordered. br1 14:01 Acetaminophen Level Ordered. EDMS 14:01 CBC with Diff Ordered. EDMS 14:01 Cardiac Injury Profile Ordered. EDMS 14:01 Drug Eval Toxicology ED Only Ordered. EDMS 14:01 Liver Profile Ordered. EDMS 14:01 MED Profile Ordered. EDMS 14:01 Salicylate Level Ordered. EDMS 14:01 Thyroid Stimulating Hormone Ordered. EDMS 14:01 Troponin Ordered. EDMS 14:01 Urinalysis Ordered. EDMS 14:01 Urine Culture Ordered. EDMS 14:01 Chest, 1 View Ordered. EDMS 14:02 CT Head Without Contrast Ordered. EDMS 14:02 ECG WITH READING ER PHYS+CARDIAG ordered. EDMS 14:49 CBC with Diff Reviewed. br1 15:02 Financial registration complete. mm15 15:06 [facility] [place] Payment Agreement was scanned into [employer] and attached to record. mm15 15:11 NS 0.9% 1000 ml IV at 150 mL/hr continuous ordered. br1 15:12 Acetaminophen Level Reviewed. br1 15:12 Liver Profile Reviewed. br1 15:12 MED Profile Reviewed. br1 15:12 Salicylate Level Reviewed. br1 15:12 Cardiac Injury Profile Reviewed. br1 15:12 Thyroid Stimulating Hormone Reviewed. br1 15:12 Troponin Reviewed. br1 15:15 BED REQUEST+ADM ordered. EDMS 17:25 Admission / Observation Status ordered. EDMS 17:41 SODIUM,RANDOM URINE Ordered. EDMS 17:41 CREATININE,RANDOM URINE Ordered. EDMS 17:41 MRI Brain without Contrast Ordered. EDMS 17:42 PHYSICAL THERAPY EVAL & TREAT ordered. EDMS 17:42 RENAL US Ordered. EDMS 17:49 CONSISTENT CARBOHYDRATES ordered. EDMS 18:00 ETHYL ALCOHOL (ETHANOL) Ordered. EDMS 18:53 BLOOD CULTURES Ordered. EDMS 18:53 BLOOD CULTURES Ordered. EDMS 19:01 LACTIC ACID LEVEL, LACTATE Ordered. EDMS 19:31 BASIC METABOLIC PROFILE Ordered. EDMS 19:32 CBC WITH DIFFERENTIAL Ordered. EDMS 19:32 BILIRUBIN,DIRECT Ordered. EDMS 02/12 03:52 T-Sheet-- Draft Copy was scanned into [employer] and attached to record. lja 09:18 ECG/EKG was scanned into [employer] and attached to record. gb 09:19 Radiology Report was scanned into [employer] and attached to record. gb Administered Medications: 02/11 14:31 Drug: NS 0.9% 500 ml [sodium chloride 0.9 % intravenous solution] Route: IV; Rate: nr1 bolus; Site: right antecubital; 15:30 Follow up: IV Status: Completed infusion; Infusion discontinued; IV Intake: 500ml ml6 15:13 Drug: NS 0.9% 1000 ml [sodium chloride 0.9 % intravenous solution] Route: IV; Rate: 150 ml6 mL/hr; Site: right antecubital; Signatures: Dispatcher [employer] EDAllie Yoder, Reg Reg gb Chauncey Aquino MD MD br1 Paxton Grimaldo, BRYCE RN ml6 Sharla Manzano mm15 Barbra Diehl RN RN mk4 Mary Dey RN RN [facility] [place] Shonna Thomas RN RN sls2 Arel, Jossy Santiago RN nr1 The chart was reviewed and I authenticate all verbal orders and agree with the evaluation and treatment provided.Corrections: (The following items were deleted from the chart) 18:00 17:41 MAGNESIUM LEVEL ordered. EDMS EDMS 18:00 17:41 PHOSPHOROUS LEVEL ordered. EDMS EDMS 18:03 17:41 LACTIC ACID LEVEL, LACTATE ordered. EDMS EDMS 18:03 17:41 ETHYL ALCOHOL (ETHANOL) ordered. EDMS EDMS 19:02 17:41 LACTIC ACID LEVEL, LACTATE ordered. EDSD EDMS 20:01 14:01 Consult PFS/PSA/Top And Trim Worker ordered. br1 apr Attachments: 15:06 [facility] Payment Agreement mm15 02/12 03:52 T-Sheet-- Draft Copy lja 09:18 ECG/EKG gb Chart Complete MTDD
--- NOTE | 2016-02-14 21:04 | EDDOCDS ---
Physician Documentation [facility] Name: Jimmie Loredo Age: 75 yrs Sex: Male : 1940 Arrival Date: 02/12/2016 Time: 13:28 Bed 11 Private MD: Jacky Disposition: 02/12/16 15:25 Hospitalization ordered by Cori Sahni for Inpatient Admission. Preliminary diagnosis are Hypotension - Acute Kidney Injury, Altered mental status, unspecified. - Bed requested for PCU. - Status is Inpatient Admission. mlc - Condition is Stable. - Problem is new. - Symptoms are unchanged. Historical: - Allergies: Sulfa (Sulfonamide Antibiotics); - Home Meds: 1. Lipitor 20 mg Oral tab 1 tab once daily 2. metformin 500 mg Oral tab 1 tab 2 times per day 3. Starlix 60 mg Oral tab 2 tabs daily 4. Naproxen Oral unknown 5. Angelita Oral Unknown unknown - PMHx: Diabetes - NIDDM: controlled; hyperlipidemia; Hypertension; - PSHx: none; - Social history: No barriers to communication noted, The patient speaks fluent Vietnamese, Smoking status: Patient states former smoker of tobacco. - Family history: Not pertinent. - : The pt / caregiver states he / she is not on anticoagulants. Home medication list is obtained from the patient. - Exposure Risk Screening:: None identified. Vital Signs: 02/11 13:32 BP 80 / 56; Pulse 62; Resp 18 S; Temp 97.0(T); Pulse Ox 100% on R/A; Weight 72.57 kg / gr2 159.99 lbs (R); Height 6 ft. 0 in. (182.88 cm) (R); Pain 0/10; 13:46 BP 99 / 55 (auto/); Pulse 52; Resp 16; Pulse Ox 98% on R/A; Pain 0/10; ml6 14:31 BP 88 / 58 (auto/); ml6 14:31 Pulse 58 MON; Resp 16; Pulse Ox 100% on R/A; Pain 0/10; ml6 15:00 BP 105 / 54; Pulse 57; Resp 16; Pulse Ox 98% on R/A; Pain 0/10; ml6 16:00 BP 107 / 58; Pulse 55; Resp 16; Pulse Ox 98% on R/A; Pain 0/10; ml6 18:00 BP 118 / 61; Pulse 58; Resp 18; Temp 97.8(O); Pulse Ox 98% on R/A; Pain 0/10; ml6 20:01 BP 97 / 56; Pulse 59; Resp 18; Temp 98.1(TE); Pulse Ox 99% on R/A; Pain 0/10; mlc 13:32 Body Mass Index 21.70 (72.57 kg, 182.88 cm) gr2 MDM: 14:00 Agency Owner/Pulse Ox/q 15 min VS ordered. br1 14:00 IV Saline Lock ordered. br1 14:00 Rhythm Strip to chart ordered. br1 14:00 NS 0.9% 500 ml IV at bolus once ordered. br1 14:00 Undress patient ordered. br1 14:01 Acetaminophen Level Ordered. EDMS 14:01 CBC with Diff Ordered. EDMS 14:01 Cardiac Injury Profile Ordered. EDMS 14:01 Drug Eval Toxicology ED Only Ordered. EDMS 14:01 Liver Profile Ordered. EDMS 14:01 MED Profile Ordered. EDMS 14:01 Salicylate Level Ordered. EDMS 14:01 Thyroid Stimulating Hormone Ordered. EDMS 14:01 Troponin Ordered. EDMS 14:01 Urinalysis Ordered. EDMS 14:01 Urine Culture Ordered. EDMS 14:01 Chest, 1 View Ordered. EDMS 14:02 CT Head Without Contrast Ordered. EDMS 14:02 ECG WITH READING ER PHYS+CARDIAG ordered. EDMS 14:49 CBC with Diff Reviewed. br1 15:02 Financial registration complete. mm15 15:06 [facility] [place] Payment Agreement was scanned into [facility] and attached to record. mm15 15:11 NS 0.9% 1000 ml IV at 150 mL/hr continuous ordered. br1 15:12 Acetaminophen Level Reviewed. br1 15:12 Liver Profile Reviewed. br1 15:12 MED Profile Reviewed. br1 15:12 Salicylate Level Reviewed. br1 15:12 Cardiac Injury Profile Reviewed. br1 15:12 Thyroid Stimulating Hormone Reviewed. br1 15:12 Troponin Reviewed. br1 15:15 BED REQUEST+ADM ordered. EDMS 17:25 Admission / Observation Status ordered. EDMS 17:41 SODIUM,RANDOM URINE Ordered. EDMS 17:41 CREATININE,RANDOM URINE Ordered. EDMS 17:41 MRI Brain without Contrast Ordered. EDMS 17:42 PHYSICAL THERAPY EVAL & TREAT ordered. EDMS 17:42 RENAL US Ordered. EDMS 17:49 CONSISTENT CARBOHYDRATES ordered. EDMS 18:00 ETHYL ALCOHOL (ETHANOL) Ordered. EDMS 18:53 BLOOD CULTURES Ordered. EDMS 18:53 BLOOD CULTURES Ordered. EDMS 19:01 LACTIC ACID LEVEL, LACTATE Ordered. EDMS 19:31 BASIC METABOLIC PROFILE Ordered. EDMS 19:32 CBC WITH DIFFERENTIAL Ordered. EDMS 19:32 BILIRUBIN,DIRECT Ordered. EDMS 02/12 03:52 T-Sheet-- Draft Copy was scanned into [facility] and attached to record. lja 09:18 ECG/EKG was scanned into [facility] and attached to record. gb 09:19 Radiology Report was scanned into [facility] and attached to record. gb Administered Medications: 02/11 14:31 Drug: NS 0.9% 500 ml [sodium chloride 0.9 % intravenous solution] Route: IV; Rate: nr1 bolus; Site: right antecubital; 15:30 Follow up: IV Status: Completed infusion; Infusion discontinued; IV Intake: 500ml ml6 15:13 Drug: NS 0.9% 1000 ml [sodium chloride 0.9 % intravenous solution] Route: IV; Rate: 150 ml6 mL/hr; Site: right antecubital; Signatures: Dispatcher [employer] EDAllie Yoder, Reg Reg gb Chauncye Aquino MD MD br1 Paxton Grimaldo, BRYCE RN ml6 Sharla Manzano mm15 Barbra Diehl RN RN mk4 Mary Dey RN RN [facility] [place] Shonna Thomas RN RN sls2 Arel, Jossy Santiago RN nr1 The chart was reviewed and I authenticate all verbal orders and agree with the evaluation and treatment provided.Corrections: (The following items were deleted from the chart) 18:00 17:41 MAGNESIUM LEVEL ordered. EDMS EDMS 18:00 17:41 PHOSPHOROUS LEVEL ordered. EDMS EDMS 18:03 17:41 LACTIC ACID LEVEL, LACTATE ordered. EDMS EDMS 18:03 17:41 ETHYL ALCOHOL (ETHANOL) ordered. EDMS EDMS 19:02 17:41 LACTIC ACID LEVEL, LACTATE ordered. EDMI EDMS 20:01 14:01 Consult PFS/PSA/Head Teacher ordered. br1 apr Attachments: 15:06 [facility] Payment Agreement mm15 02/12 03:52 T-Sheet-- Draft Copy lja 09:18 ECG/EKG gb Chart Complete MTDD
[2016-02-14 22:00] VITALS: BP 107/69
[2016-02-15 06:00] VITALS: BP 111/75
[2016-02-15 06:54] LABS: BASO % 0.9 % (0.0-1.0); EOS # 0.2 K/mm3 (0.0-0.50); EOS % 3.3 % (0.0-3.0); LARGE UNSTAINED CELL # 0.1 K/mm3 (0.0-0.4); LYMPH # 1.3 K/mm3 (1.5-4.5); LYMPH % 24.3 % (24.0-44.0); MEAN CORPUSCULAR HEMOGLOBIN 33.1 pg (27.0-33.0); MEAN CORPUSCULAR HGB CONC 33.8 g/dl (32.0-36.5); MEAN CORPUSCULAR VOLUME 97.9 fl (80.0-96.0); MONO # 0.4 K/mm3 (0.0-0.8); NEUTROPHILS # 2.9 K/mm3 (1.8-7.7); NEUTROPHILS % 60.5 % (36.0-66.0); PLATELET COUNT, AUTOMATED 163 k/mm3 (150-450); RED CELL DISTRIBUTION WIDTH 13.4 % (11.5-14.5); WHITE BLOOD COUNT 4.8 K/mm3 (4.0-10.0)
[2016-02-15 07:00] LABS: ANION GAP 8 MEQ/L (8-16); BLOOD UREA NITROGEN 20 MG/DL (7-18); CALCIUM LEVEL 9.1 MG/DL (8.8-10.2); CARBON DIOXIDE LEVEL 24 MEQ/L (21-32); CHLORIDE LEVEL 110 MEQ/L (98-107); CREATININE FOR GFR 1.15 MG/DL (0.70-1.30); GLOMERULAR FILTRATION RATE > 60.0 (>42); GLUCOSE, FASTING 109 MG/DL (83-110); POTASSIUM SERUM 4.4 MEQ/L (3.5-5.1); SODIUM LEVEL 142 MEQ/L (136-145)
--- NOTE | 2016-02-15 08:01 | IPNPDOC ---
Assessment/Plan Date Seen The patient was seen on 02/15/16. Problems Problems: (1) Dementia Status: Chronic Problem Text: has a mini mental score of 22, lost points in immediate recall , and short term recall and spelling back duarte. Does not have insight and has poor judgement at this point. Patient does not have any decisional capacity. will continue with seroquel for agitation and for sleep, will need nursing home placement. (2) OSMIN (acute kidney injury) Status: Acute Problem Text: prerenal from poor intake improved with IVF was initially hypotensive improved with ivf. (3) Hyperlipidemia Status: Chronic Problem Text: continue statin (4) Diabetes Status: Chronic Problem Text: a1c is 6.2 will not need meds on discharge. Can be managed with diet control. continue sliding scale insulin. (5) GERD (gastroesophageal reflux disease) Status: Chronic Problem Text: continue PPI (6) Frequent falls Status: Chronic Problem Text: due to generalized muscular deconditioning. PT evaluation. (7) Sinus bradycardia Status: Chronic (8) Vitamin B 12 deficiency Status: Chronic Problem Text: on im vit b 12 will check levels. Plan / VTE VTE Prophylaxis Ordered?: Yes Subjective CC/HPI The patient is a 75-year-old male admitted with a reason for visit of Acute Kidney Injury. Events since last encounter No complaints today , slept well overnight. Objective General Exam: : Alert: Cooperative: No Acute Distress Eye Exam: : Conjunctiva & lids normal: EOMI: PERRLANo: Sclera icteric ENT Exam: : Atraumatic: Mucous membr. moist/pink: Pharynx Normal Chest Exam: : Clear to auscultation: Normal air movement Heart Exam: : Normal S1: Normal S2: Rate Normal: Regular RhythmNo: Murmurs, Rubs Abdomen Exam: : Normal bowel sounds: SoftNo: Hepatospenomegaly, Tenderness Extremity Exam: : Normal pulsesNo: Clubbing, Cyanosis, Edema Vital Signs I&O Vital Sign - Last 24 Hours 02/14/16 02/14/16 02/14/16 02/14/16 14:00 15:40 20:50 22:00 Temp 97.6 96.7 Pulse 60 57 Resp 18 18 B/P 114/73 107/69 Pulse Ox 99 94 O2 Delivery Room Air Room Air Room Air Room Air 02/15/16 06:00 Temp 97.2 Pulse 54 Resp 18 B/P 111/75 Pulse Ox 93 O2 Delivery Room Air I&O- Last 24 Hours up to 6 AM 02/15/16 06:00 Intake Total 1560 ml Output Total 0 ml Balance 1560 ml Laboratory Data Labs 24H Laboratory Tests 2 02/14/16 11:50: Bedside Glucose (Misc Panel) 126H 02/14/16 17:18: Bedside Glucose (Misc Panel) 104 02/14/16 20:35: Bedside Glucose (Misc Panel) 116H 02/15/16 05:56: Anion Gap 8, White Blood Count 4.8, Red Blood Count 3.68L, Hemoglobin 12.2L, Hematocrit 36.0L, Mean Corpuscular Volume 97.9H, Mean Corpuscular Hemoglobin 33.1H, Mean Corpuscular Hemoglobin Concent 33.8, Red Cell Distribution Width 13.4, Platelet Count 163, Neutrophils (%) (Auto) 60.5, Lymphocytes (%) (Auto) 24.3, Monocytes (%) (Auto) 9.0H, Eosinophils (%) (Auto) 3.3H, Basophils (%) ( Auto) 0.9, Neutrophils # (Auto) 2.9, Lymphocytes # (Auto) 1.3L, Monocytes # ( Auto) 0.4, Eosinophils # (Auto) 0.2, Basophils # (Auto) 0.0, Blood Urea Nitrogen 20H, Creatinine 1.15, Sodium Level 142, Potassium Level 4.4, Chloride Level 110H, Carbon Dioxide Level 24, Calcium Level 9.1, Estimated Mean Plasma Glucose 131H, Glomerular Filtration Rate > 60.0, Hemoglobin A1c 6.2, Large Unclassified Cells # 0.1, Large Unclassified Cells % 2.0 CBC/BMP Laboratory Tests 02/15/16 05:56 Calcium Level 9.1, Red Blood Count 3.68 L, Mean Corpuscular Volume 97.9 H, Mean Corpuscular Hemoglobin 33.1 H, Mean Corpuscular Hemoglobin Concent 33.8, Red Cell Distribution Width 13.4, Neutrophils (%) (Auto) 60.5, Lymphocytes (%) (Auto ) 24.3, Monocytes (%) (Auto) 9.0 H, Eosinophils (%) (Auto) 3.3 H, Basophils (%) (Auto) 0.9, Neutrophils # (Auto) 2.9, Lymphocytes # (Auto) 1.3 L, Monocytes # ( Auto) 0.4, Eosinophils # (Auto) 0.2, Basophils # (Auto) 0.0 FSBS Laboratory Tests Test 02/14/16 11:50 02/14/16 17:18 02/14/16 20:35 Range/Units Bedside Glucose (Misc Panel) 126 104 116 83-110 MG/DL Medications Medications Current Medications Medications Dose Ordered Sig/Donnie Route PRN Reason Start Time Stop Time Status Last Admin Dose Admin Acetaminophen 650 mg Q4HP PRN PO MILD PAIN OR FEVER 02/12/16 17:45 03/13/16 17:44 Atorvastatin Calcium 20 mg DAILY PO 02/13/16 09:00 03/14/16 08:59 02/14/16 10:59 20 MG Cyanocobalamin 1,000 mcg DAILY IM 02/12/16 09:00 03/13/16 08:59 02/14/16 11:00 1,000 MCG Dextrose 25 ml ASDIRECTED PRN IV SEE LABEL COMMENTS 02/12/16 18:30 03/13/16 18:29 Docusate Sodium 100 mg BID PO 02/12/16 21:00 03/13/16 20:59 02/14/16 20:52 100 MG Glucagon 1 mg ASDIRECTED PRN SC SEE LABEL COMMENTS 02/12/16 18:30 03/13/16 18:29 Glucose 16 GM ASDIRECTED PRN PO SEE LABEL COMMENTS 02/12/16 18:30 03/13/16 18:29 Heparin Sodium (Porcine) 5,000 units Q12H SC 02/12/16 21:00 02/17/16 20:59 02/14/16 20:53 5,000 UNITS Insulin Human Lispro SEE PROTOCOL TABLE AC SC 02/13/16 07:30 03/14/16 07:29 02/14/16 18:10 2 UNITS Insulin Human Lispro SEE PROTOCOL TABLE QHS SC 02/12/16 21:00 03/13/16 20:59 Lorazepam 1 mg Q6HP PRN IV ANXIETY/AGITATION 02/13/16 19:30 02/20/16 19:29 02/14/16 18:47 1 MG Multivitamins 2 tab DAILY PO 02/12/16 09:00 03/13/16 08:59 02/14/16 10:59 2 TAB Ondansetron HCl 4 mg Q6HP PRN IV NAUSEA OR VOMITING 02/12/16 17:45 03/13/16 17:44 Pantoprazole Sodium 40 mg DAILY PO 02/13/16 09:00 03/14/16 08:59 02/14/16 10:59 40 MG Quetiapine Fumarate 12.5 mg BID PO 02/13/16 21:00 03/14/16 20:59 02/14/16 20:52 12.5 MG Allergies Coded Allergies: Sulfa Antibiotics (Unverified Allergy, Unknown, 02/12/16) MAYRA HURLEY MD Feb 15, 2016 08:00
[2016-02-15] MEDS: QUEtiapine FUMARATE 12.5 MG HALF-TAB PO SCH ×2 (08:18→20:35)
[2016-02-15] MEDS: DOCUSATE SODIUM 100 MG CAP PO SCH ×2 (08:18→20:35)
[2016-02-15] MEDS: ATORVASTATIN 20 MG TAB PO SCH (08:18)
[2016-02-15] MEDS: PANTOPRAZOLE 40MG TAB (PROTONIX) PO SCH (08:18)
[2016-02-15] MEDS: MULTIVITAMINS/MINERALS THERAP 1 TAB PO SCH (08:18)
[2016-02-15] MEDS: HEPARIN SOD (PORCINE) 5000 UNITS/ML VIAL SC SCH ×2 (08:19→20:35)
[2016-02-15] MEDS: CYANOCOBALAMIN 1,000 MCG/ML VIAL (J3420) IM SCH (08:19)
[2016-02-15] MEDS ORDERED: MIRALAX *UNIT DOSE* 17GM PACKET PO PRN (14:30)
[2016-02-15] MEDS ORDERED: FLEET ENEMA PR PRN (14:30)
[2016-02-15 16:00] VITALS: BP 136/86
[2016-02-15 22:00] VITALS: BP 99/60
[2016-02-16 06:00] VITALS: BP 133/82
[2016-02-16] MEDS: MULTIVITAMINS/MINERALS THERAP 1 TAB PO SCH (09:09)
[2016-02-16] MEDS: DOCUSATE SODIUM 100 MG CAP PO SCH ×2 (09:10→20:40)
[2016-02-16] MEDS: QUEtiapine FUMARATE 12.5 MG HALF-TAB PO SCH ×2 (09:10→20:40)
[2016-02-16] MEDS: ATORVASTATIN 20 MG TAB PO SCH (09:10)
[2016-02-16] MEDS: PANTOPRAZOLE 40MG TAB (PROTONIX) PO SCH (09:10)
[2016-02-16] MEDS: HEPARIN SOD (PORCINE) 5000 UNITS/ML VIAL SC SCH ×2 (09:10→20:39)
[2016-02-16 10:41] LABS: FOLATE 12.2 NG/ML; VITAMIN B12 LEVEL > 2000 PG/ML
[2016-02-16 14:47] LABS: MEAN CORPUSCULAR HEMOGLOBIN 33.6 pg (27.0-33.0); MEAN CORPUSCULAR VOLUME 98.9 fl (80.0-96.0); RED CELL DISTRIBUTION WIDTH 13.4 % (11.5-14.5); WHITE BLOOD COUNT 6.4 K/mm3 (4.0-10.0)
[2016-02-16 14:59] LABS: ANION GAP 8 MEQ/L (8-16); BLOOD UREA NITROGEN 15 MG/DL (7-18); CALCIUM LEVEL 8.7 MG/DL (8.8-10.2); CARBON DIOXIDE LEVEL 26 MEQ/L (21-32); CHLORIDE LEVEL 107 MEQ/L (98-107); CREATININE FOR GFR 1.22 MG/DL (0.70-1.30); GLOMERULAR FILTRATION RATE > 60.0 (>42); GLUCOSE, FASTING 101 MG/DL (83-110); POTASSIUM SERUM 4.2 MEQ/L (3.5-5.1); SODIUM LEVEL 141 MEQ/L (136-145)
[2016-02-17 06:00] VITALS: BP 124/79
[2016-02-17] MEDS: QUEtiapine FUMARATE 12.5 MG HALF-TAB PO SCH ×2 (08:11→22:09)
[2016-02-17] MEDS: DOCUSATE SODIUM 100 MG CAP PO SCH ×2 (08:11→22:09)
[2016-02-17] MEDS: MULTIVITAMINS/MINERALS THERAP 1 TAB PO SCH (08:11)
[2016-02-17] MEDS: HEPARIN SOD (PORCINE) 5000 UNITS/ML VIAL SC SCH ×2 (08:11→22:10)
[2016-02-17] MEDS: PANTOPRAZOLE 40MG TAB (PROTONIX) PO SCH (08:11)
[2016-02-17] MEDS: ATORVASTATIN 20 MG TAB PO SCH (08:11)
[2016-02-18 06:00] VITALS: BP 135/79
[2016-02-18] MEDS: ATORVASTATIN 20 MG TAB PO SCH (09:23)
[2016-02-18] MEDS: PANTOPRAZOLE 40MG TAB (PROTONIX) PO SCH (09:23)
[2016-02-18] MEDS: MULTIVITAMINS/MINERALS THERAP 1 TAB PO SCH (09:23)
[2016-02-18] MEDS: QUEtiapine FUMARATE 12.5 MG HALF-TAB PO SCH ×2 (09:23→20:15)
[2016-02-18] MEDS: HEPARIN SOD (PORCINE) 5000 UNITS/ML VIAL SC SCH ×2 (09:23→20:15)
[2016-02-18] MEDS: DOCUSATE SODIUM 100 MG CAP PO SCH ×2 (09:23→20:15)
[2016-02-19 07:00] VITALS: BP 157/80
[2016-02-19] MEDS: ACETAMINOPHEN TAB 650MG DOSE (2X325MG) PO PRN (08:45)
[2016-02-19] MEDS: HEPARIN SOD (PORCINE) 5000 UNITS/ML VIAL SC SCH ×2 (08:45→20:08)
[2016-02-19] MEDS: ATORVASTATIN 20 MG TAB PO SCH (08:45)
[2016-02-19] MEDS: PANTOPRAZOLE 40MG TAB (PROTONIX) PO SCH (08:45)
[2016-02-19] MEDS: CYANOCOBALAMIN 1,000 MCG/ML VIAL (J3420) IM SCH (08:45)
[2016-02-19] MEDS: QUEtiapine FUMARATE 12.5 MG HALF-TAB PO SCH ×2 (08:45→20:08)
[2016-02-19] MEDS: MULTIVITAMINS/MINERALS THERAP 1 TAB PO SCH (08:45)
[2016-02-19] MEDS: DOCUSATE SODIUM 100 MG CAP PO SCH ×2 (08:45→20:08)
--- NOTE | 2016-02-19 12:39 | CR ---
DATE OF CONSULTATION: 02/18/2016 SUBJECTIVE: The patient is experiencing acute kidney injury, and a question has been raised as to whether a guardian needs to be appointed to proceed with treatment for his renal failure. MENTAL STATUS EXAMINATION: The patient was quite suspicious and uncooperative with meeting with me and told me repeatedly "I'm not going to speak to you. Leave my room now." Any attempt to create conversation was met with increasing hostility and resistance. Thus, I cannot perform a mental status examination. I have an impression based on third-constitution party information, after discussing his situation with Lee Ann James, operations and intelligence assistant nurse ic design manager. She explained to me that she had an extensive conversation with Mr. Loredo the day before and that she found him to be confused, but being aware that he was confused, he became increasingly defensive. He would say things, such as the idea that he was 79 and his mother was 85. He had trouble telling her the address where he lives. 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 Loredo, I would still have the medical opinion that he is suffering from a dementia; and it is my medical opinion that he would need to have a guardian appointed to monitor his best interests but also consent to the necessary medical procedures that he will need in order to save his life. KASEY
[2016-02-19 14:22] LABS: MEAN CORPUSCULAR HEMOGLOBIN 33.4 pg (27.0-33.0); MEAN CORPUSCULAR HGB CONC 34.6 g/dl (32.0-36.5); MEAN CORPUSCULAR VOLUME 96.3 fl (80.0-96.0); RED CELL DISTRIBUTION WIDTH 13.1 % (11.5-14.5); WHITE BLOOD COUNT 6.2 K/mm3 (4.0-10.0)
[2016-02-19 14:37] LABS: ANION GAP 7 MEQ/L (8-16); BLOOD UREA NITROGEN 13 MG/DL (7-18); CALCIUM LEVEL 8.8 MG/DL (8.8-10.2); CARBON DIOXIDE LEVEL 28 MEQ/L (21-32); CHLORIDE LEVEL 106 MEQ/L (98-107); CREATININE FOR GFR 1.18 MG/DL (0.70-1.30); GLOMERULAR FILTRATION RATE > 60.0 (>42); GLUCOSE, FASTING 197 MG/DL (83-110); POTASSIUM SERUM 4.4 MEQ/L (3.5-5.1); SODIUM LEVEL 141 MEQ/L (136-145)
[2016-02-20 07:00] VITALS: BP 136/68
[2016-02-20] MEDS: ATORVASTATIN 20 MG TAB PO SCH (09:28)
[2016-02-20] MEDS: HEPARIN SOD (PORCINE) 5000 UNITS/ML VIAL SC SCH ×2 (09:28→19:48)
[2016-02-20] MEDS: DOCUSATE SODIUM 100 MG CAP PO SCH ×2 (09:28→19:48)
[2016-02-20] MEDS: PANTOPRAZOLE 40MG TAB (PROTONIX) PO SCH (09:28)
[2016-02-20] MEDS: QUEtiapine FUMARATE 12.5 MG HALF-TAB PO SCH ×2 (09:28→19:48)
[2016-02-20] MEDS: MULTIVITAMINS/MINERALS THERAP 1 TAB PO SCH (09:28)
[2016-02-20] MEDS: LORazepam 2 MG/ML VIAL (J2060) IM PRN ×2 (10:44→18:07)
--- NOTE | 2016-02-20 11:43 | IPNPDOC ---
Assessment/Plan Date Seen The patient was seen on 02/20/16. Problems Problems: (1) Dementia Status: Chronic Problem Text: has a mini mental score of 22, lost points in immediate recall , and short term recall and spelling back duarte. Does not have insight and has poor judgement at this point. Patient does not have any decisional capacity. Also delirious thinking his brother is his father. will continue with seroquel for agitation and for sleep, will need vermin exterminator placement. Consulted psych and agrees patient need guardianship. (2) OSMIN (acute kidney injury) Status: Acute Problem Text: prerenal from poor intake improved with IVF was initially hypotensive improved with ivf. (3) Hyperlipidemia Status: Chronic Problem Text: continue statin (4) Diabetes Status: Chronic Problem Text: a1c is 6.2 will not need meds on discharge. Can be managed with diet control. continue sliding scale insulin. (5) GERD (gastroesophageal reflux disease) Status: Chronic Problem Text: continue PPI (6) Frequent falls Status: Chronic Problem Text: due to generalized muscular deconditioning. PT evaluation. (7) Sinus bradycardia Status: Chronic (8) Vitamin B 12 deficiency Status: Chronic Problem Text: on im vit b 12 will check levels. Plan / VTE VTE Prophylaxis Ordered?: Yes Subjective CC/HPI The patient is a 75-year-old male admitted with a reason for visit of Acute Kidney Injury. Patient seen and examined at bedside. No acute event overnight. Patient is feeling well. Patient no longer recognize resident doctor and medical student, even though we saw him last week. Patient believe he is visiting dentist. Patient was reportedly agitated last night. Patient denies any fever/chill, chest pain, sob, abdominal, nausea, vomiting, diarrhea, constipation, problems with urination. Patient denies any other current new complaints. Objective General Exam: : Alert: Cooperative: No Acute Distress Eye Exam: : Conjunctiva & lids normal: EOMI: PERRLANo: Sclera icteric ENT Exam: : Atraumatic: Mucous membr. moist/pink: Pharynx Normal Chest Exam: : Clear to auscultation: Normal air movement Heart Exam: : Normal S1: Normal S2: Rate Normal: Regular RhythmNo: Murmurs, Rubs Abdomen Exam: : Normal bowel sounds: SoftNo: Hepatospenomegaly, Tenderness Extremity Exam: : Normal pulsesNo: Clubbing, Cyanosis, Edema Skin Exam: : Nl turgor and temperature Neuro Exam: : Cranial Nerves 3-12 NL: Strength at 5/5 X4 ext Psych Exam: : Oriented x 3: Other (delirius )No: Memory Intact Vital Signs I&O Vital Sign - Last 24 Hours 02/20/16 07:00 Temp 97.2 Pulse 62 Resp 12 B/P 136/68 Pulse Ox 95 O2 Delivery Room Air I&O- Last 24 Hours up to 6 AM 02/20/16 06:00 Intake Total 780 ml Output Total 0 ml Balance 780 ml Laboratory Data Labs 24H Laboratory Tests 2 02/19/16 14:00: Anion Gap 7L, Blood Urea Nitrogen 13, Creatinine 1.18, Sodium Level 141, Potassium Level 4.4, Chloride Level 106, Carbon Dioxide Level 28, Calcium Level 8.8, Glomerular Filtration Rate > 60.0 02/20/16 06:56: Bedside Glucose (Misc Panel) 90 CBC/BMP Laboratory Tests 02/19/16 14:00 Calcium Level 8.8, Red Blood Count 3.74 L, Mean Corpuscular Volume 96.3 H, Mean Corpuscular Hemoglobin 33.4 H, Mean Corpuscular Hemoglobin Concent 34.6, Red Cell Distribution Width 13.1 FSBS Laboratory Tests Test 02/20/16 06:56 Range/Units Bedside Glucose (Misc Panel) 90 83-110 MG/DL Medications Medications Current Medications Medications Dose Ordered Sig/Donnie Route PRN Reason Start Time Stop Time Status Last Admin Dose Admin Acetaminophen 650 mg Q4HP PRN PO MILD PAIN OR FEVER 02/12/16 17:45 03/13/16 17:44 02/19/16 08:45 650 MG Atorvastatin Calcium 20 mg DAILY PO 02/13/16 09:00 03/14/16 08:59 02/20/16 09:28 20 MG Cyanocobalamin 1,000 mcg Th@09 IM 02/19/16 09:00 03/20/16 08:59 02/19/16 08:45 1,000 MCG Dextrose 25 ml ASDIRECTED PRN IV SEE LABEL COMMENTS 02/12/16 18:30 03/13/16 18:29 Docusate Sodium 100 mg BID PO 02/12/16 21:00 03/13/16 20:59 02/20/16 09:28 100 MG Glucagon 1 mg ASDIRECTED PRN SC SEE LABEL COMMENTS 02/12/16 18:30 03/13/16 18:29 Glucose 16 GM ASDIRECTED PRN PO SEE LABEL COMMENTS 02/12/16 18:30 03/13/16 18:29 Heparin Sodium (Porcine) 5,000 units Q12H SC 02/12/16 21:00 02/25/16 20:59 02/20/16 09:28 5,000 UNITS Lorazepam 2 mg Q6HP PRN IM AGITATION 02/15/16 14:30 02/22/16 14:29 02/20/16 10:44 2 MG Multivitamins 2 tab DAILY PO 02/12/16 09:00 03/13/16 08:59 02/20/16 09:28 2 TAB Pantoprazole Sodium 40 mg DAILY PO 02/13/16 09:00 03/14/16 08:59 02/20/16 09:28 40 MG Polyethylene Glycol 1 pkt DAILYPRN PRN PO CONSTIPATION 02/15/16 14:30 03/16/16 14:29 Quetiapine Fumarate 12.5 mg BID PO 02/13/16 21:00 03/14/16 20:59 02/20/16 09:28 12.5 MG Sodium Biphosphate/ Sodium Phosphate 1 ENEMA DAILYPRN PRN AL CONSTIPATION 02/15/16 14:30 03/16/16 14:29 Allergies Coded Allergies: Sulfa Antibiotics (Unverified Allergy, Unknown, 02/12/16) GME ATTESTATION GME ATTESTATION My preceptor for this patient encounter was physically present in the building during the encounter and was fully available. As needed, all aspects of the patient interview, examination, medical decision making process, and medical care plan development were reviewed and approved by the preceptor. Preceptor is aware and concurs with the plan as stated in the body of this note and will attest to such by his/her cosignature. DAVINA JOSHI DO Feb 20, 2016 11:43
[2016-02-20] MEDS: ACETAMINOPHEN TAB 650MG DOSE (2X325MG) PO PRN (19:48)
[2016-02-21 07:00] VITALS: BP 128/84
[2016-02-21] MEDS: MULTIVITAMINS/MINERALS THERAP 1 TAB PO SCH (09:49)
[2016-02-21] MEDS: DOCUSATE SODIUM 100 MG CAP PO SCH ×2 (09:50→20:02)
[2016-02-21] MEDS: QUEtiapine FUMARATE 12.5 MG HALF-TAB PO SCH (09:50)
[2016-02-21] MEDS: PANTOPRAZOLE 40MG TAB (PROTONIX) PO SCH (09:50)
[2016-02-21] MEDS: ATORVASTATIN 20 MG TAB PO SCH (09:50)
[2016-02-21] MEDS: HEPARIN SOD (PORCINE) 5000 UNITS/ML VIAL SC SCH ×2 (09:51→20:03)
[2016-02-21] MEDS: LORazepam 2 MG/ML VIAL (J2060) IM PRN (15:43)
[2016-02-21] MEDS: QUEtiapine FUMARATE 25 MG TAB PO SCH (20:02)
[2016-02-21] MEDS: ACETAMINOPHEN TAB 650MG DOSE (2X325MG) PO PRN (20:02)
[2016-02-22] MEDS: LORazepam 2 MG/ML VIAL (J2060) IM PRN ×2 (03:28→23:17)
[2016-02-22 10:00] VITALS: BP 124/80
[2016-02-22] MEDS: MULTIVITAMINS/MINERALS THERAP 1 TAB PO SCH (10:12)
[2016-02-22] MEDS: HEPARIN SOD (PORCINE) 5000 UNITS/ML VIAL SC SCH ×2 (10:12→19:54)
[2016-02-22] MEDS: ATORVASTATIN 20 MG TAB PO SCH (10:12)
[2016-02-22] MEDS: PANTOPRAZOLE 40MG TAB (PROTONIX) PO SCH (10:12)
[2016-02-22] MEDS: DOCUSATE SODIUM 100 MG CAP PO SCH ×2 (10:12→19:54)
[2016-02-22] MEDS: QUEtiapine FUMARATE 25 MG TAB PO SCH ×2 (10:12→19:54)
[2016-02-22] MEDS: ACETAMINOPHEN TAB 650MG DOSE (2X325MG) PO PRN (19:54)
[2016-02-23 07:00] VITALS: BP 128/80
[2016-02-23] MEDS: PANTOPRAZOLE 40MG TAB (PROTONIX) PO SCH (08:39)
[2016-02-23] MEDS: ATORVASTATIN 20 MG TAB PO SCH (08:39)
[2016-02-23] MEDS: QUEtiapine FUMARATE 25 MG TAB PO SCH ×2 (08:40→20:20)
[2016-02-23] MEDS: HEPARIN SOD (PORCINE) 5000 UNITS/ML VIAL SC SCH ×2 (08:40→20:20)
[2016-02-23] MEDS: DOCUSATE SODIUM 100 MG CAP PO SCH ×2 (08:40→20:22)
[2016-02-23] MEDS: MULTIVITAMINS/MINERALS THERAP 1 TAB PO SCH (08:40)
[2016-02-23] MEDS: ACETAMINOPHEN TAB 650MG DOSE (2X325MG) PO PRN (08:40)
[2016-02-23 11:35] LABS: MEAN CORPUSCULAR HEMOGLOBIN 29.9 pg (27.0-33.0); MEAN CORPUSCULAR VOLUME 96.5 fl (80.0-96.0); RED CELL DISTRIBUTION WIDTH 12.7 % (11.5-14.5); WHITE BLOOD COUNT 3.9 K/mm3 (4.0-10.0)
[2016-02-23 12:36] LABS: ANION GAP 9 MEQ/L (8-16); BLOOD UREA NITROGEN 13 MG/DL (7-18); CALCIUM LEVEL 8.4 MG/DL (8.8-10.2); CARBON DIOXIDE LEVEL 25 MEQ/L (21-32); CHLORIDE LEVEL 109 MEQ/L (98-107); GLOMERULAR FILTRATION RATE > 60.0 (>42); GLUCOSE, FASTING 128 MG/DL (83-110); POTASSIUM SERUM 4.1 MEQ/L (3.5-5.1); SODIUM LEVEL 143 MEQ/L (136-145)
[2016-02-23] MEDS: LORazepam 2 MG/ML VIAL (J2060) IM PRN (14:10)
[2016-02-24 07:00] VITALS: BP 120/80
[2016-02-24] MEDS: MULTIVITAMINS/MINERALS THERAP 1 TAB PO SCH (08:41)
[2016-02-24] MEDS: PANTOPRAZOLE 40MG TAB (PROTONIX) PO SCH (08:41)
[2016-02-24] MEDS: QUEtiapine FUMARATE 25 MG TAB PO SCH ×2 (08:41→19:51)
[2016-02-24] MEDS: DOCUSATE SODIUM 100 MG CAP PO SCH ×2 (08:41→19:51)
[2016-02-24] MEDS: ATORVASTATIN 20 MG TAB PO SCH (08:42)
[2016-02-24] MEDS: ACETAMINOPHEN TAB 650MG DOSE (2X325MG) PO PRN (08:42)
[2016-02-24] MEDS: HEPARIN SOD (PORCINE) 5000 UNITS/ML VIAL SC SCH ×2 (08:42→19:52)
[2016-02-24] MEDS: LORazepam 2 MG/ML VIAL (J2060) IM PRN (14:36)
[2016-02-25 08:00] VITALS: BP 117/71
[2016-02-25] MEDS: PANTOPRAZOLE 40MG TAB (PROTONIX) PO SCH (08:13)
[2016-02-25] MEDS: MULTIVITAMINS/MINERALS THERAP 1 TAB PO SCH (08:13)
[2016-02-25] MEDS: QUEtiapine FUMARATE 25 MG TAB PO SCH ×2 (08:13→19:57)
[2016-02-25] MEDS: HEPARIN SOD (PORCINE) 5000 UNITS/ML VIAL SC SCH ×2 (08:13→19:57)
[2016-02-25] MEDS: ACETAMINOPHEN TAB 650MG DOSE (2X325MG) PO PRN (08:13)
[2016-02-25] MEDS: ATORVASTATIN 20 MG TAB PO SCH (08:13)
[2016-02-25] MEDS: DOCUSATE SODIUM 100 MG CAP PO SCH ×2 (08:13→19:57)
[2016-02-25] MEDS: LORazepam 2 MG/ML VIAL (J2060) IM PRN (18:44)
[2016-02-26 06:50] LABS: MEAN CORPUSCULAR HEMOGLOBIN 33.8 pg (27.0-33.0); MEAN CORPUSCULAR HGB CONC 34.7 g/dl (32.0-36.5); MEAN CORPUSCULAR VOLUME 97.3 fl (80.0-96.0); RED CELL DISTRIBUTION WIDTH 12.7 % (11.5-14.5); WHITE BLOOD COUNT 4.7 K/mm3 (4.0-10.0)
[2016-02-26 07:00] VITALS: BP 128/70
[2016-02-26 07:07] LABS: ANION GAP 5 MEQ/L (8-16); BLOOD UREA NITROGEN 14 MG/DL (7-18); CALCIUM LEVEL 8.6 MG/DL (8.8-10.2); CARBON DIOXIDE LEVEL 28 MEQ/L (21-32); CHLORIDE LEVEL 109 MEQ/L (98-107); CREATININE FOR GFR 1.14 MG/DL (0.70-1.30); GLOMERULAR FILTRATION RATE > 60.0 (>42); GLUCOSE, FASTING 90 MG/DL (83-110); SODIUM LEVEL 142 MEQ/L (136-145)
[2016-02-26] MEDS: ATORVASTATIN 20 MG TAB PO SCH (09:00)
[2016-02-26] MEDS: HEPARIN SOD (PORCINE) 5000 UNITS/ML VIAL SC SCH ×2 (09:00→20:06)
[2016-02-26] MEDS: MULTIVITAMINS/MINERALS THERAP 1 TAB PO SCH (09:00)
[2016-02-26] MEDS: PANTOPRAZOLE 40MG TAB (PROTONIX) PO SCH (09:00)
[2016-02-26] MEDS: CYANOCOBALAMIN 1,000 MCG/ML VIAL (J3420) IM SCH (09:00)
[2016-02-26] MEDS: DOCUSATE SODIUM 100 MG CAP PO SCH ×2 (09:01→20:05)
[2016-02-26] MEDS: QUEtiapine FUMARATE 25 MG TAB PO SCH ×2 (09:01→20:06)
--- NOTE | 2016-02-26 14:39 | IPNPDOC ---
Assessment/Plan Date Seen The patient was seen on 02/26/16. Problems Problems: (1) Dementia Status: Chronic Problem Text: has a mini mental score of 22, lost points in immediate recall , and short term recall and spelling back duarte. Does not have insight and has poor judgement at this point. Patient does not have any decisional capacity. Also delirious thinking his brother is his father. 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 Consulted psych and agrees patient need guardianship. (2) OSMIN (acute kidney injury) Status: Resolved Problem Text: prerenal from poor intake improved with IVF was initially hypotensive improved with ivf. (3) Hyperlipidemia Status: Chronic Problem Text: continue statin (4) Diabetes Status: Chronic Problem Text: a1c is 6.2 will not need meds on discharge. Can be managed with diet control. continue sliding scale insulin. (5) GERD (gastroesophageal reflux disease) Status: Chronic Problem Text: continue PPI (6) Frequent falls Status: Chronic Problem Text: due to generalized muscular deconditioning. PT evaluation. (7) Sinus bradycardia Status: Chronic (8) Vitamin B 12 deficiency Status: Chronic Problem Text: on im vit b 12 will check levels. Plan / VTE VTE Prophylaxis Ordered?: Yes Subjective CC/HPI The patient is a 75-year-old male admitted with a reason for visit of Acute Kidney Injury. Events since last encounter was agitated last evening usually agitation starts from around 4 pm , does not offer any complaints this am. Objective General Exam: : Alert: Cooperative: No Acute Distress Eye Exam: : Conjunctiva & lids normal: EOMI: PERRLANo: Sclera icteric ENT Exam: : Atraumatic: Mucous membr. moist/pink: Pharynx Normal Chest Exam: : Clear to auscultation: Normal air movement Heart Exam: : Normal S1: Normal S2: Rate Normal: Regular RhythmNo: Murmurs, Rubs Abdomen Exam: : Normal bowel sounds: SoftNo: Hepatospenomegaly, Tenderness Extremity Exam: : Normal pulsesNo: Clubbing, Cyanosis, Edema Skin Exam: : Nl turgor and temperature Neuro Exam: : Cranial Nerves 3-12 NL: Strength at 5/5 X4 ext Psych Exam: : Oriented x 3: Other (delirius )No: Memory Intact Vital Signs I&O Vital Sign - Last 24 Hours 02/26/16 07:00 Temp 96.8 Pulse 69 Resp 14 B/P 128/70 Pulse Ox 96 O2 Delivery Room Air I&O- Last 24 Hours up to 6 AM 02/26/16 05:59 Intake Total 1010 ml Balance 1010 ml Laboratory Data Labs 24H Laboratory Tests 2 02/25/16 16:42: Bedside Glucose (Misc Panel) 101 02/26/16 06:27: Anion Gap 5L, Blood Urea Nitrogen 14, Creatinine 1.14, Sodium Level 142, Potassium Level 4.0, Chloride Level 109H, Carbon Dioxide Level 28, Calcium Level 8.6L, Glomerular Filtration Rate > 60.0 02/26/16 06:44: Bedside Glucose (Misc Panel) 86 CBC/BMP Laboratory Tests 02/26/16 06:27 Calcium Level 8.6 L, Red Blood Count 3.22 L, Mean Corpuscular Volume 97.3 H, Mean Corpuscular Hemoglobin 33.8 H, Mean Corpuscular Hemoglobin Concent 34.7, Red Cell Distribution Width 12.7 FSBS Laboratory Tests Test 02/25/16 16:42 02/26/16 06:44 Range/Units Bedside Glucose (Misc Panel) 101 86 83-110 MG/DL Medications Medications Current Medications Medications Dose Ordered Sig/Donnie Route PRN Reason Start Time Stop Time Status Last Admin Dose Admin Acetaminophen 650 mg Q4HP PRN PO MILD PAIN OR FEVER 02/12/16 17:45 03/13/16 17:44 02/25/16 08:13 650 MG Atorvastatin Calcium 20 mg DAILY PO 02/13/16 09:00 03/14/16 08:59 02/26/16 09:00 20 MG Cyanocobalamin 1,000 mcg Th@09 IM 02/19/16 09:00 03/20/16 08:59 02/26/16 09:00 1,000 MCG Dextrose 25 ml ASDIRECTED PRN IV SEE LABEL COMMENTS 02/12/16 18:30 03/13/16 18:29 Docusate Sodium 100 mg BID PO 02/12/16 21:00 03/13/16 20:59 02/26/16 09:01 100 MG Glucagon 1 mg ASDIRECTED PRN SC SEE LABEL COMMENTS 02/12/16 18:30 03/13/16 18:29 Glucose 16 GM ASDIRECTED PRN PO SEE LABEL COMMENTS 02/12/16 18:30 03/13/16 18:29 Heparin Sodium (Porcine) 5,000 units Q12H SC 02/12/16 21:00 02/29/16 20:59 02/26/16 09:00 5,000 UNITS Lorazepam 2 mg Q6HP PRN IM AGITATION 02/15/16 14:30 02/28/16 14:29 02/25/16 18:44 2 MG Multivitamins 2 tab DAILY PO 02/12/16 09:00 03/13/16 08:59 02/26/16 09:00 2 TAB Pantoprazole Sodium 40 mg DAILY PO 02/13/16 09:00 03/14/16 08:59 02/26/16 09:00 40 MG Polyethylene Glycol 1 pkt DAILYPRN PRN PO CONSTIPATION 02/15/16 14:30 03/16/16 14:29 Quetiapine Fumarate 25 mg BID PO 02/21/16 21:00 03/22/16 20:59 02/26/16 09:01 25 MG Sodium Biphosphate/ Sodium Phosphate 1 ENEMA DAILYPRN PRN [place] CONSTIPATION 02/15/16 14:30 03/16/16 14:29 Allergies Coded Allergies: Sulfa Antibiotics (Unverified Allergy, Unknown, 02/12/16) MAYRA HURLEY MD Feb 26, 2016 14:39
[2016-02-26] MEDS: LORazepam 2 MG/ML VIAL (J2060) IM PRN (19:34)
[2016-02-27 07:46] VITALS: BP 129/87
[2016-02-27] MEDS: DOCUSATE SODIUM 100 MG CAP PO SCH ×2 (08:29→20:25)
[2016-02-27] MEDS: MULTIVITAMINS/MINERALS THERAP 1 TAB PO SCH (08:29)
[2016-02-27] MEDS: PANTOPRAZOLE 40MG TAB (PROTONIX) PO SCH (08:29)
[2016-02-27] MEDS: ATORVASTATIN 20 MG TAB PO SCH (08:29)
[2016-02-27] MEDS: ACETAMINOPHEN TAB 650MG DOSE (2X325MG) PO PRN (08:30)
[2016-02-27] MEDS: HEPARIN SOD (PORCINE) 5000 UNITS/ML VIAL SC SCH ×2 (08:30→20:24)
[2016-02-27] MEDS: QUEtiapine FUMARATE 25 MG TAB PO SCH ×2 (12:09→20:25)
[2016-02-27] MEDS: LORazepam 2 MG/ML VIAL (J2060) IM PRN ×2 (13:13→20:07)
[2016-02-28 08:00] VITALS: BP 117/80
[2016-02-28] MEDS: DOCUSATE SODIUM 100 MG CAP PO SCH ×2 (09:34→19:42)
[2016-02-28] MEDS: PANTOPRAZOLE 40MG TAB (PROTONIX) PO SCH (09:34)
[2016-02-28] MEDS: ATORVASTATIN 20 MG TAB PO SCH (09:34)
[2016-02-28] MEDS: MULTIVITAMINS/MINERALS THERAP 1 TAB PO SCH (09:35)
[2016-02-28] MEDS: HEPARIN SOD (PORCINE) 5000 UNITS/ML VIAL SC SCH ×2 (09:35→19:41)
[2016-02-28] MEDS: ACETAMINOPHEN TAB 650MG DOSE (2X325MG) PO PRN (09:35)
[2016-02-28] MEDS: QUEtiapine FUMARATE 25 MG TAB PO SCH ×2 (12:14→19:42)
[2016-02-28] MEDS: LORazepam 1 MG TAB PO PRN (19:42)
[2016-02-29] MEDS: ACETAMINOPHEN TAB 650MG DOSE (2X325MG) PO PRN ×3 (00:50→20:02)
[2016-02-29] MEDS: LORazepam 2 MG/ML VIAL (J2060) IM PRN ×2 (01:04→14:42)
[2016-02-29 08:00] VITALS: BP 157/93
[2016-02-29] MEDS: MULTIVITAMINS/MINERALS THERAP 1 TAB PO SCH (09:06)
[2016-02-29] MEDS: LORazepam 1 MG TAB PO PRN ×2 (09:06→20:02)
[2016-02-29] MEDS: PANTOPRAZOLE 40MG TAB (PROTONIX) PO SCH (09:06)
[2016-02-29] MEDS: ATORVASTATIN 20 MG TAB PO SCH (09:06)
[2016-02-29] MEDS: DOCUSATE SODIUM 100 MG CAP PO SCH ×2 (09:06→20:01)
[2016-02-29] MEDS: HEPARIN SOD (PORCINE) 5000 UNITS/ML VIAL SC SCH ×2 (09:07→20:01)
[2016-02-29] MEDS: QUEtiapine FUMARATE 25 MG TAB PO SCH ×2 (12:34→20:01)
[2016-03-01 06:38] LABS: MEAN CORPUSCULAR HEMOGLOBIN 34.7 pg (27.0-33.0); MEAN CORPUSCULAR HGB CONC 35.5 g/dl (32.0-36.5); MEAN CORPUSCULAR VOLUME 97.7 fl (80.0-96.0); RED CELL DISTRIBUTION WIDTH 12.9 % (11.5-14.5)
[2016-03-01 06:56] LABS: ANION GAP 8 MEQ/L (8-16); BLOOD UREA NITROGEN 18 MG/DL (7-18); CALCIUM LEVEL 8.8 MG/DL (8.8-10.2); CARBON DIOXIDE LEVEL 28 MEQ/L (21-32); CHLORIDE LEVEL 107 MEQ/L (98-107); CREATININE FOR GFR 1.09 MG/DL (0.70-1.30); GLOMERULAR FILTRATION RATE > 60.0 (>42); GLUCOSE, FASTING 100 MG/DL (83-110); POTASSIUM SERUM 4.3 MEQ/L (3.5-5.1); SODIUM LEVEL 143 MEQ/L (136-145)
[2016-03-01 07:00] VITALS: BP 151/85
[2016-03-01] MEDS: DOCUSATE SODIUM 100 MG CAP PO SCH ×2 (09:54→19:55)
[2016-03-01] MEDS: MULTIVITAMINS/MINERALS THERAP 1 TAB PO SCH (09:55)
[2016-03-01] MEDS: ATORVASTATIN 20 MG TAB PO SCH (09:55)
[2016-03-01] MEDS: PANTOPRAZOLE 40MG TAB (PROTONIX) PO SCH (09:55)
[2016-03-01] MEDS: HEPARIN SOD (PORCINE) 5000 UNITS/ML VIAL SC SCH ×2 (10:01→19:54)
[2016-03-01] MEDS: LORazepam 1 MG TAB PO PRN (12:08)
[2016-03-01] MEDS: QUEtiapine FUMARATE 25 MG TAB PO SCH ×2 (12:08→19:55)
[2016-03-01] MEDS: LORazepam 2 MG/ML VIAL (J2060) IM PRN (21:47)
[2016-03-02] MEDS ORDERED: HALOPERIDOL 5 MG/ML VIAL (J1630) IM PRN (00:15)
[2016-03-02] MEDS: HEPARIN SOD (PORCINE) 5000 UNITS/ML VIAL SC SCH ×2 (08:51→20:31)
[2016-03-02] MEDS: MULTIVITAMINS/MINERALS THERAP 1 TAB PO SCH (08:52)
[2016-03-02] MEDS: ATORVASTATIN 20 MG TAB PO SCH (08:52)
[2016-03-02] MEDS: DOCUSATE SODIUM 100 MG CAP PO SCH ×2 (08:52→20:31)
[2016-03-02] MEDS: PANTOPRAZOLE 40MG TAB (PROTONIX) PO SCH (08:52)
[2016-03-02 10:00] VITALS: BP 112/75
--- NOTE | 2016-03-02 11:32 | IPNPDOC ---
Assessment/Plan Date Seen The patient was seen on 03/02/16. Problems Problems: (1) Dementia Status: Chronic Problem Text: * has a mini mental score of 22, lost points in immediate recall , and short term recall and spelling back duarte. * Does not have insight and has poor judgement at this point. Patient does not have any decisional capacity. * Also delirious thinking his brother is his father. * will continue with seroquel for agitation and for sleep, * will need halfway placement. * Consulted psych and agrees patient need guardianship. * pt continues to have increased agitation overnight, will reconsult psych for further recommendation * pt had haldol overnight 2mg (2) OSMIN (acute kidney injury) Status: Resolved Problem Text: prerenal from poor intake improved with IVF was initially hypotensive improved with ivf. (3) Hyperlipidemia Status: Chronic Problem Text: continue statin (4) Diabetes Status: Chronic Problem Text: a1c is 6.2 will not need meds on discharge. Can be managed with diet control. continue sliding scale insulin. (5) GERD (gastroesophageal reflux disease) Status: Chronic Problem Text: continue PPI (6) Frequent falls Status: Chronic Problem Text: due to generalized muscular deconditioning. PT evaluation. (7) Sinus bradycardia Status: Chronic (8) Vitamin B 12 deficiency Status: Chronic Problem Text: on im vit b 12 will check levels. Plan / VTE VTE Prophylaxis Ordered?: Yes Subjective CC/HPI The patient is a 75-year-old male admitted with a reason for visit of Acute Kidney Injury. Events since last encounter pt seen and examined, was resting in bed, per nursing staff pt didn't sleep well last night, was very agitated. Constitutional: Denies: Chills, Fever, Malaise, Night Sweats, Weakness Cardiovascular: Denies: Chest Pain, Lt Headedness, Orthopnea, Palpitations, Paroxysmal Noc. Dyspnea Objective General Exam: : Alert: Cooperative: No Acute Distress Eye Exam: : Conjunctiva & lids normal: EOMI: PERRLANo: Sclera icteric ENT Exam: : Atraumatic: Mucous membr. moist/pink: Pharynx Normal Chest Exam: : Clear to auscultation: Normal air movement Heart Exam: : Normal S1: Normal S2: Rate Normal: Regular RhythmNo: Murmurs, Rubs Abdomen Exam: : Normal bowel sounds: SoftNo: Hepatospenomegaly, Tenderness Extremity Exam: : Normal pulsesNo: Clubbing, Cyanosis, Edema Skin Exam: : Nl turgor and temperature Neuro Exam: : Cranial Nerves 3-12 NL: Strength at 5/5 X4 ext Psych Exam: : Oriented x 3: Other (delirius )No: Memory Intact Vital Signs I&O Vital Sign - Last 24 Hours 03/02/16 10:00 Temp 95.9 Pulse 69 Resp 14 B/P 112/75 Pulse Ox 96 O2 Delivery Room Air I&O- Last 24 Hours up to 6 AM 03/02/16 05:59 Intake Total 2580 ml Balance 2580 ml Laboratory Data Labs 24H Laboratory Tests 2 03/01/16 16:33: Bedside Glucose (Misc Panel) 123H 03/02/16 06:55: Bedside Glucose (Misc Panel) 101 FSBS Laboratory Tests Test 03/01/16 16:33 03/02/16 06:55 Range/Units Bedside Glucose (Misc Panel) 123 101 83-110 MG/DL Medications Medications Current Medications Medications Dose Ordered Sig/Donnie Route PRN Reason Start Time Stop Time Status Last Admin Dose Admin Acetaminophen 650 mg Q4HP PRN PO MILD PAIN OR FEVER 02/12/16 17:45 03/13/16 17:44 02/29/16 20:02 650 MG Atorvastatin Calcium 20 mg DAILY PO 02/13/16 09:00 03/14/16 08:59 03/02/16 08:52 20 MG Cyanocobalamin 1,000 mcg Th@09 IM 02/19/16 09:00 03/20/16 08:59 02/26/16 09:00 1,000 MCG Dextrose 25 ml ASDIRECTED PRN IV SEE LABEL COMMENTS 02/12/16 18:30 03/13/16 18:29 Docusate Sodium 100 mg BID PO 02/12/16 21:00 03/13/16 20:59 03/02/16 08:52 100 MG Glucagon 1 mg ASDIRECTED PRN SC SEE LABEL COMMENTS 02/12/16 18:30 03/13/16 18:29 Glucose 16 GM ASDIRECTED PRN PO SEE LABEL COMMENTS 02/12/16 18:30 03/13/16 18:29 Haloperidol 2 mg DAILY PRN IM AGITATION 03/02/16 00:15 04/01/16 00:14 03/02/16 00:24 2 MG Heparin Sodium (Porcine) 5,000 units Q12H SC 02/12/16 21:00 03/04/16 20:59 03/02/16 08:51 5,000 UNITS Lorazepam 1 mg Q8HP PRN PO ANXIETY 02/28/16 12:00 03/06/16 11:59 03/01/16 12:08 1 MG Lorazepam 2 mg Q6HP PRN IM AGITATION 02/15/16 14:30 03/05/16 14:29 03/01/16 21:47 2 MG Multivitamins 2 tab DAILY PO 02/12/16 09:00 03/13/16 08:59 03/02/16 08:52 2 TAB Pantoprazole Sodium 40 mg DAILY PO 02/13/16 09:00 03/14/16 08:59 03/02/16 08:52 40 MG Polyethylene Glycol 1 pkt DAILYPRN PRN PO CONSTIPATION 02/15/16 14:30 03/16/16 14:29 Quetiapine Fumarate 25 mg DAILY@12 PO 02/27/16 12:00 03/28/16 11:59 03/01/16 12:08 25 MG Quetiapine Fumarate 25 mg QHS PO 02/26/16 21:00 03/27/16 20:59 03/01/16 19:55 25 MG Sodium Biphosphate/ Sodium Phosphate 1 ENEMA DAILYPRN PRN DC CONSTIPATION 02/15/16 14:30 03/16/16 14:29 Allergies Coded Allergies: Sulfa Antibiotics (Unverified Allergy, Unknown, 02/12/16) EMILIA WELSH DO Mar 02, 2016 11:32
[2016-03-02] MEDS: QUEtiapine FUMARATE 25 MG TAB PO SCH ×2 (13:04→20:31)
[2016-03-02] MEDS: LORazepam 1 MG TAB PO PRN (15:17)
--- NOTE | 2016-03-02 15:17 | CR ---
DATE OF CONSULTATION: 03/02/2016 LOCATION: [address] [place] [address] This is a 75-year-old white male who was admitted in renal failure, which is now resolved. The patient is now being considered for intermediate placement. The patient has a history of dementia, who is living here in the [place] area. His landlord was concerned about his well being and contacted Adult Protective Services, and he was sent here to the emergency room for evaluation, and the patient was admitted. The patient was seen in a psychiatric consultation on 02/18/[address] Ibarra. The patient was quite paranoid at the time. He was uncooperative to the point where the psychiatrist was not able to perform an adequate mental status examination. The patient was found to be confused and disoriented, showing signs of suffering from a dementia process. It was recommended that guardianship be pursued. The patient does have a brother who lives in [place]. The patient is seen at the request of Dr. Staton. The patient has been agitated of late, showing classic signs of sundowning behavior. The patient becomes agitated in the late afternoon/early evening, stays awake all night and then sleeps most of the day. The patient has been on low dose Seroquel 25 mg twice a day with marginal benefit. The patient was given a one time dose of Haldol 2 mg last night with marginal benefit. The patient is more cooperative with me, fortunately, than with the previous psychiatrist. He states that his parents are still alive, even though they are . The patient is not aware of his age. 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 He denies any previous history of psychiatric conditions or disturbances. MENTAL STATUS EXAMINATION: The patient is alert, but not oriented. He is oriented to place, [place], but not the institution. He is disoriented as to the date, as well. His short term memory is impaired. He recalls one out of three objects at 5 minutes. His abstraction ability is also impaired. Interpretation of proverbs is quite concrete. Fund of information is limited. He shows no current signs of depression. He is not agitated at this moment. He shows no signs of paranoia. He denies hearing any voices. Insight and judgment are quite impaired due to his cognitive deficits. IMPRESSION: Dementia, unknown etiology. PLAN: The patient has not responded to low dose Seroquel. My recommendation is Haldol 5 mg by mouth at 3:00 p.m. with a second dose of 5 mg at 6:00 p.m. Hopefully, this combination will help address his sleep/wake cycle and help with the sundowning experience that he is undergoing. This treatment plan is reviewed with the charge nurse, who will relay it to Dr. Staton, the hospitalist. CEFERINOD
[2016-03-02] MEDS: LORazepam 2 MG/ML VIAL (J2060) IM PRN (22:03)
[2016-03-03 07:00] VITALS: BP 126/81
[2016-03-03] MEDS: DOCUSATE SODIUM 100 MG CAP PO SCH ×2 (08:26→19:43)
[2016-03-03] MEDS: HEPARIN SOD (PORCINE) 5000 UNITS/ML VIAL SC SCH (08:26)
[2016-03-03] MEDS: ATORVASTATIN 20 MG TAB PO SCH (08:26)
[2016-03-03] MEDS: ACETAMINOPHEN TAB 650MG DOSE (2X325MG) PO PRN ×2 (08:27→19:43)
[2016-03-03] MEDS: LORazepam 1 MG TAB PO PRN ×2 (08:27→19:42)
[2016-03-03] MEDS: MULTIVITAMINS/MINERALS THERAP 1 TAB PO SCH (08:27)
[2016-03-03] MEDS: PANTOPRAZOLE 40MG TAB (PROTONIX) PO SCH (08:27)
[2016-03-03] MEDS: QUEtiapine FUMARATE 25 MG TAB PO SCH ×2 (12:01→19:42)
[2016-03-03] MEDS: LORazepam 2 MG/ML VIAL (J2060) IM PRN ×2 (14:35→23:42)
[2016-03-03] MEDS: HALOPERIDOL 5 MG/ML VIAL (J1630) IM PRN (23:59)
[2016-03-04 06:39] LABS: MEAN CORPUSCULAR HEMOGLOBIN 33.5 pg (27.0-33.0); MEAN CORPUSCULAR HGB CONC 34.4 g/dl (32.0-36.5); MEAN CORPUSCULAR VOLUME 97.4 fl (80.0-96.0); RED CELL DISTRIBUTION WIDTH 13.9 % (11.5-14.5); WHITE BLOOD COUNT 5.4 K/mm3 (4.0-10.0)
[2016-03-04 06:51] LABS: ANION GAP 8 MEQ/L (8-16); BLOOD UREA NITROGEN 15 MG/DL (7-18); CALCIUM LEVEL 8.9 MG/DL (8.8-10.2); CARBON DIOXIDE LEVEL 26 MEQ/L (21-32); CHLORIDE LEVEL 108 MEQ/L (98-107); CREATININE FOR GFR 1.08 MG/DL (0.70-1.30); GLOMERULAR FILTRATION RATE > 60.0 (>42); GLUCOSE, FASTING 104 MG/DL (83-110); POTASSIUM SERUM 3.7 MEQ/L (3.5-5.1); SODIUM LEVEL 142 MEQ/L (136-145)
[2016-03-04 08:00] VITALS: BP 117/70
[2016-03-04] MEDS: LORazepam 1 MG TAB PO PRN ×2 (08:36→19:50)
[2016-03-04] MEDS: ATORVASTATIN 20 MG TAB PO SCH (08:36)
[2016-03-04] MEDS: MULTIVITAMINS/MINERALS THERAP 1 TAB PO SCH (08:36)
[2016-03-04] MEDS: PANTOPRAZOLE 40MG TAB (PROTONIX) PO SCH (08:36)
[2016-03-04] MEDS: DOCUSATE SODIUM 100 MG CAP PO SCH ×2 (08:36→19:49)
[2016-03-04] MEDS: ACETAMINOPHEN TAB 650MG DOSE (2X325MG) PO PRN (08:37)
[2016-03-04] MEDS: CYANOCOBALAMIN 1,000 MCG/ML VIAL (J3420) IM SCH (08:37)
--- NOTE | 2016-03-04 12:24 | ECGEPIP ---
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
[2016-03-04] MEDS: QUEtiapine FUMARATE 25 MG TAB PO SCH ×2 (13:29→19:50)
[2016-03-04] MEDS: HALOPERIDOL 5 MG/ML VIAL (J1630) IM PRN (22:44)
[2016-03-04] MEDS: LORazepam 2 MG/ML VIAL (J2060) IM PRN (23:32)
[2016-03-05 08:00] VITALS: BP 99/64
[2016-03-05] MEDS: HALOPERIDOL 1 MG TAB PO SCH ×2 (09:00→19:33)
[2016-03-05] MEDS ORDERED: LORazepam 1 MG TAB PO PRN (09:45)
[2016-03-05] MEDS: ATORVASTATIN 20 MG TAB PO SCH (10:00)
[2016-03-05] MEDS: PANTOPRAZOLE 40MG TAB (PROTONIX) PO SCH (10:00)
[2016-03-05] MEDS: DOCUSATE SODIUM 100 MG CAP PO SCH ×2 (10:00→19:33)
[2016-03-05] MEDS: MULTIVITAMINS/MINERALS THERAP 1 TAB PO SCH (10:00)
--- NOTE | 2016-03-05 12:40 | ECGEPIP ---
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
[2016-03-05] MEDS: HALOPERIDOL 1 MG TAB PO PRN (13:54)
[2016-03-05] MEDS: QUEtiapine FUMARATE 25 MG TAB PO SCH (19:33)
[2016-03-06 07:00] VITALS: BP 118/72
[2016-03-06] MEDS: ATORVASTATIN 20 MG TAB PO SCH (08:36)
[2016-03-06] MEDS: DOCUSATE SODIUM 100 MG CAP PO SCH ×2 (08:36→19:47)
[2016-03-06] MEDS: HALOPERIDOL 1 MG TAB PO SCH ×2 (08:36→19:47)
[2016-03-06] MEDS: MULTIVITAMINS/MINERALS THERAP 1 TAB PO SCH (08:36)
[2016-03-06] MEDS: PANTOPRAZOLE 40MG TAB (PROTONIX) PO SCH (08:36)
[2016-03-06] MEDS: HALOPERIDOL 1 MG TAB PO PRN ×2 (13:29→19:47)
[2016-03-06] MEDS: ACETAMINOPHEN TAB 650MG DOSE (2X325MG) PO PRN ×2 (13:29→19:47)
[2016-03-06] MEDS: QUEtiapine FUMARATE 25 MG TAB PO SCH (19:47)
[2016-03-06] MEDS: HALOPERIDOL 5 MG/ML VIAL (J1630) IM PRN (22:08)
[2016-03-07 07:00] VITALS: BP 121/77
[2016-03-07] MEDS: PANTOPRAZOLE 40MG TAB (PROTONIX) PO SCH (11:07)
[2016-03-07] MEDS: MULTIVITAMINS/MINERALS THERAP 1 TAB PO SCH (11:07)
[2016-03-07] MEDS: ACETAMINOPHEN TAB 650MG DOSE (2X325MG) PO PRN (11:07)
[2016-03-07] MEDS: DOCUSATE SODIUM 100 MG CAP PO SCH ×2 (11:07→19:40)
[2016-03-07] MEDS: ATORVASTATIN 20 MG TAB PO SCH (11:07)
[2016-03-07] MEDS: HALOPERIDOL 1 MG TAB PO SCH ×2 (11:07→19:40)
[2016-03-07] MEDS: HALOPERIDOL 1 MG TAB PO PRN (11:07)
[2016-03-07] MEDS: HALOPERIDOL 5 MG/ML VIAL (J1630) IM PRN (16:30)
[2016-03-07] MEDS: QUEtiapine FUMARATE 25 MG TAB PO SCH (19:39)
[2016-03-08] MEDS: HALOPERIDOL 5 MG/ML VIAL (J1630) IM PRN ×2 (00:39→18:24)
[2016-03-08 06:40] LABS: MEAN CORPUSCULAR HEMOGLOBIN 34.7 pg (27.0-33.0); MEAN CORPUSCULAR HGB CONC 35.8 g/dl (32.0-36.5); WHITE BLOOD COUNT 5.6 K/mm3 (4.0-10.0)
[2016-03-08 06:59] LABS: ANION GAP 8 MEQ/L (8-16); BLOOD UREA NITROGEN 18 MG/DL (7-18); CALCIUM LEVEL 8.5 MG/DL (8.8-10.2); CARBON DIOXIDE LEVEL 26 MEQ/L (21-32); CHLORIDE LEVEL 109 MEQ/L (98-107); CREATININE FOR GFR 1.07 MG/DL (0.70-1.30); GLOMERULAR FILTRATION RATE > 60.0 (>42); GLUCOSE, FASTING 104 MG/DL (83-110); POTASSIUM SERUM 3.7 MEQ/L (3.5-5.1); SODIUM LEVEL 143 MEQ/L (136-145)
[2016-03-08 07:00] VITALS: BP 138/88
[2016-03-08] MEDS: PANTOPRAZOLE 40MG TAB (PROTONIX) PO SCH (08:55)
[2016-03-08] MEDS: ACETAMINOPHEN TAB 650MG DOSE (2X325MG) PO PRN (08:55)
[2016-03-08] MEDS: MULTIVITAMINS/MINERALS THERAP 1 TAB PO SCH (08:55)
[2016-03-08] MEDS: ATORVASTATIN 20 MG TAB PO SCH (08:55)
[2016-03-08] MEDS: HALOPERIDOL 1 MG TAB PO SCH ×2 (08:55→19:17)
[2016-03-08] MEDS: DOCUSATE SODIUM 100 MG CAP PO SCH ×2 (08:55→19:16)
[2016-03-08] MEDS: QUEtiapine FUMARATE 25 MG TAB PO SCH (19:16)
[2016-03-09] MEDS: HALOPERIDOL 5 MG/ML VIAL (J1630) IM PRN (00:46)
[2016-03-09 08:00] VITALS: BP 121/79
[2016-03-09] MEDS ORDERED: diphenhydrAMINE 50 MG CAP PO ONE (08:00)
[2016-03-09] MEDS: PANTOPRAZOLE 40MG TAB (PROTONIX) PO SCH (08:45)
[2016-03-09] MEDS: MULTIVITAMINS/MINERALS THERAP 1 TAB PO SCH (08:45)
[2016-03-09] MEDS: HALOPERIDOL 1 MG TAB PO SCH (08:45)
[2016-03-09] MEDS: ACETAMINOPHEN TAB 650MG DOSE (2X325MG) PO PRN ×2 (08:45→15:17)
[2016-03-09] MEDS: DOCUSATE SODIUM 100 MG CAP PO SCH ×2 (08:45→19:27)
[2016-03-09] MEDS: ATORVASTATIN 20 MG TAB PO SCH (08:45)
--- NOTE | 2016-03-09 14:50 | CR ---
DATE OF CONSULTATION: 03/09/2016 Location: [facility], room number 5137. This is a 75-year-old white male with history of dementia seen 1 week ago. New information has been received from the family. His brother reports that the patient was a severe alcoholic. He found liquor bottles all throughout the patient's apartment when it got cleaned out. The patient most likely has an alcoholic dementia process. The patient was given Haldol per my recommendation, however there was a concern about the QTc interval so the full dose was not prescribed. The case is consulted with Dr. Lopez. Various options are reviewed, including increasing Seroquel or switching to Risperdal. Dr. Lopez reviewed the risk of QTc interval changes on Risperdal, which is quite low, and feels comfortable with that product. The patient has not done well, according to nursing staff. The patient is seen today at 2 p.m. in the afternoon and is wide awake,pacing in his room. He did not sleep one bit all last night or this morning. He was quite agitated, he was disruptive, placing himself and other patients and staff members at potential risk. MENTAL STATUS EXAMINATION: The patient is alert, but is disoriented, for example, he gives the date as 04/13/1969. Short/long goods drier memory impaired. He denies feeling depressed. He does not appear sad. He is verbal. He is not agitated at this moment. He is not voicing any paranoid ideation. He denies hearing any voices. He denies any visual types of hallucinations. Insight and judgment are quite impaired however , placing himself and others at potential risk. 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 Lopez, patient to be started on Risperdal 2 mg at 6 p.m. tonight. The dose will be titrated upwards each day by 1 mg/day until the medication appears effective for his agitation and for the safety of himself and other staff. One other option might be gabapentin at bedtime which can be also helpful for alcoholics and perhaps alcoholic dementia conditions. Other options might be returning to Seroquel or possibly a trial on olanzapine. Otherwise, the patient might need a higher level of care such as the progressive care unit (PCU). [facility]
--- NOTE | 2016-03-09 17:03 | IPNPDOC ---
Assessment/Plan Date Seen The patient was seen on 03/09/16. Problems Problems: (1) Dementia with psychosis Status: Acute Response to Treatment: Uncontrolled Problem Text: * Psych was consulted previously. * Due to high risk of cardiac arrhythmia, recommended 5mg haldo BID was not given. Pt has been on 2mg haldo BID. * There is increased psychosis. patient is re-evaluated by psych on 03/09/16. * Recommend change haldo to Risperdal 2mg BID. Increase by 1mg daily. Close monitoring patient for adverse effects. (2) Dementia Status: Chronic Problem Text: * has a mini mental score of 22, lost points in immediate recall , and short term recall and spelling back duarte. * Does not have insight and has poor judgement at this point. Patient does not have any decisional capacity. * Also delirious thinking his brother is his father. * will continue with seroquel for agitation and for sleep, * will need group home placement. * Consulted psych and agrees patient need guardianship. * pt continues to have increased agitation overnight, reconsulted psych for further recommendation * pt had haldol overnight 2mg (3) OSMIN (acute kidney injury) Status: Resolved Problem Text: prerenal from poor intake improved with IVF was initially hypotensive improved with ivf. (4) Hyperlipidemia Status: Chronic Problem Text: continue statin (5) Diabetes Status: Chronic Problem Text: a1c is 6.2 will not need meds on discharge. Can be managed with diet control. continue sliding scale insulin. (6) GERD (gastroesophageal reflux disease) Status: Chronic Problem Text: continue PPI (7) Frequent falls Status: Chronic Problem Text: due to generalized muscular deconditioning. PT evaluation. (8) Sinus bradycardia Status: Chronic (9) Vitamin B 12 deficiency Status: Chronic Problem Text: on im vit b 12 will check levels. Plan / VTE VTE Prophylaxis Ordered?: Yes Subjective CC/HPI The patient is a 75-year-old male admitted with a reason for visit of Acute Kidney Injury. Events since last encounter Patient is seen and examed in the room today. Per nursing staff, patient has increased abnormal behaviors. multiple code 25 has been called for patient mental status change. Since yesterday night, patient shows increased tendency of physical violence toward the nursing staff. Objective General Exam: : Alert: Cooperative: No Acute Distress Eye Exam: : Conjunctiva & lids normal: EOMI: PERRLANo: Sclera icteric ENT Exam: : Atraumatic: Mucous membr. moist/pink: Pharynx Normal Chest Exam: : Clear to auscultation: Normal air movement Heart Exam: : Normal S1: Normal S2: Rate Normal: Regular RhythmNo: Murmurs, Rubs Abdomen Exam: : Normal bowel sounds: SoftNo: Hepatospenomegaly, Tenderness Extremity Exam: : Normal pulsesNo: Clubbing, Cyanosis, Edema Skin Exam: : Nl turgor and temperature Neuro Exam: : Cranial Nerves 3-12 NL: Strength at 5/5 X4 ext Psych Exam: : Oriented x 3: Other (delirius )No: Memory Intact Vital Signs I&O Vital Sign - Last 24 Hours 03/09/16 08:00 Temp 96.5 Pulse 77 Resp 18 B/P 121/79 Pulse Ox 95 O2 Delivery Room Air I&O- Last 24 Hours up to 6 AM 03/09/16 06:00 Intake Total 852 ml Balance 852 ml Laboratory Data Labs 24H Laboratory Tests 2 03/09/16 06:43: Bedside Glucose (Misc Panel) 178H 03/09/16 16:23: Bedside Glucose (Misc Panel) 131H FSBS Laboratory Tests Test 03/09/16 06:43 03/09/16 16:23 Range/Units Bedside Glucose (Misc Panel) 178 131 83-110 MG/DL Medications Medications Current Medications Medications Dose Ordered Sig/Donnie Route PRN Reason Start Time Stop Time Status Last Admin Dose Admin Acetaminophen 650 mg Q4HP PRN PO MILD PAIN OR FEVER 02/12/16 17:45 03/13/16 17:44 03/09/16 15:17 650 MG Atorvastatin Calcium 20 mg DAILY PO 02/13/16 09:00 03/14/16 08:59 03/09/16 08:45 20 MG Cyanocobalamin 1,000 mcg Th@09 IM 02/19/16 09:00 03/20/16 08:59 03/04/16 08:37 1,000 MCG Dextrose 25 ml ASDIRECTED PRN IV SEE LABEL COMMENTS 02/12/16 18:30 03/13/16 18:29 Docusate Sodium 100 mg BID PO 02/12/16 21:00 03/13/16 20:59 03/09/16 08:45 100 MG Glucagon 1 mg ASDIRECTED PRN SC SEE LABEL COMMENTS 02/12/16 18:30 03/13/16 18:29 Glucose 16 GM ASDIRECTED PRN PO SEE LABEL COMMENTS 02/12/16 18:30 03/13/16 18:29 Haloperidol 1 mg Q6HP PRN PO AGITATION 03/05/16 09:15 04/04/16 09:14 03/07/16 11:07 1 MG Haloperidol 2 mg Q6HP PRN IM AGITATION 03/07/16 16:15 04/06/16 16:14 03/08/16 18:24 2 MG Haloperidol 2 mg QHSP PRN IM AGITATION 03/04/16 00:00 04/03/16 00:00 03/09/16 00:46 2 MG Multivitamins 2 tab DAILY PO 02/12/16 09:00 03/13/16 08:59 03/09/16 08:45 2 TAB Pantoprazole Sodium 40 mg DAILY PO 02/13/16 09:00 03/14/16 08:59 03/09/16 08:45 40 MG Polyethylene Glycol 1 pkt DAILYPRN PRN PO CONSTIPATION 02/15/16 14:30 03/16/16 14:29 Quetiapine Fumarate 25 mg QHS PO 02/26/16 21:00 03/27/16 20:59 03/08/16 19:16 25 MG Risperidone 2 mg BID@,18 PO 03/09/16 18:00 04/08/16 17:59 Sodium Biphosphate/ Sodium Phosphate 1 ENEMA DAILYPRN PRN ID CONSTIPATION 02/15/16 14:30 03/16/16 14:29 Allergies Coded Allergies: Sulfa Antibiotics (Unverified Allergy, Unknown, 02/12/16) MAEGAN ESPARZA DO Mar 09, 2016 17:03
[2016-03-09] MEDS: risperiDONE 2 MG TAB PO SCH (18:03)
[2016-03-09] MEDS: HALOPERIDOL 1 MG TAB PO PRN (19:26)
[2016-03-09] MEDS: QUEtiapine FUMARATE 25 MG TAB PO SCH (19:27)
[2016-03-09] MEDS ORDERED: risperiDONE 2 MG TAB PO SCH (21:00)
[2016-03-10 08:00] VITALS: BP 137/75
[2016-03-10] MEDS: PANTOPRAZOLE 40MG TAB (PROTONIX) PO SCH (08:26)
[2016-03-10] MEDS: ACETAMINOPHEN TAB 650MG DOSE (2X325MG) PO PRN (08:26)
[2016-03-10] MEDS: risperiDONE 2 MG TAB PO SCH ×2 (08:26→17:52)
[2016-03-10] MEDS: DOCUSATE SODIUM 100 MG CAP PO SCH ×2 (08:26→19:43)
[2016-03-10] MEDS: ATORVASTATIN 20 MG TAB PO SCH (08:26)
[2016-03-10] MEDS: MULTIVITAMINS/MINERALS THERAP 1 TAB PO SCH (08:26)
--- NOTE | 2016-03-10 13:46 | CR ---
DATE OF CONSULTATION: 03/10/2016 LOCATION: [address] [place] [address], room number 5187. The patient was seen yesterday and again today. His case is consulted with the charge nurse on duty. She reports that Dr. Lopez ordered Risperdal 2 mg twice a day, dose is timed at 6:00 a.m. and 6:00 p.m. He did get a dose at 6:00 p.m. last night. He finally started to respond about midnight after being awake for over 36 hours. He rested quietly in his hospital bed, not falling asleep until about 3:00 a.m. this morning. He did wake up about 9:00 a.m. this morning and got his second dose of Risperdal. His behavior has been much improved since being on the new psychotropic. No outbursts noted. He is calmer. He is not striking out at staff. He is more cooperative and easily cooperates with both breakfast and lunch. The patient had a good appetite for both meals according to the one-to-one sitter monitoring him. MENTAL STATUS EXAMINATION: The patient is again alert. He is sitting comfortably in his easy chair. He has just finished lunch. He appears less anxious. He is not agitated. He definitely appears calmer. No paranoia noted. No signs of depression. Impulse control seems improved. The patient is still disoriented from his dementia process. He does not appear to be sedated from the Risperdal. IMPRESSION: Dementia with recent agitation and sundowning behavior. PLAN: Continue current psychotropic regimen. It would be safe to discontinue the Seroquel 25 mg night dosage, as the Risperdal seems to be effective for control of his behavior. If the morning dose of Risperdal appears to be too sedating, one option would be to lower the 6:00 a.m. dose to 1 mg and increase the 6:00 p.m. dose to 3 mg. Otherwise, keeping him on the current treatment regimen appears appropriate.
[2016-03-10] MEDS ORDERED: LORazepam 2 MG/ML VIAL (J2060) IV PRN (16:45)
[2016-03-10] MEDS ORDERED: HALOPERIDOL 5 MG/ML VIAL (J1630) As Ordered ONE (16:53)
[2016-03-10] MEDS ORDERED: LORazepam 2 MG/ML VIAL (J2060) As Ordered ONE (16:54)
[2016-03-10] MEDS: HALOPERIDOL 5 MG/ML VIAL (J1630) IM PRN (17:03)
[2016-03-10] MEDS: LORazepam 2 MG/ML VIAL (J2060) IM PRN ×2 (17:03→23:36)
[2016-03-10] MEDS: QUEtiapine FUMARATE 25 MG TAB PO SCH (19:43)
[2016-03-11 06:53] LABS: MEAN CORPUSCULAR HEMOGLOBIN 33.8 pg (27.0-33.0); MEAN CORPUSCULAR HGB CONC 34.6 g/dl (32.0-36.5); MEAN CORPUSCULAR VOLUME 97.6 fl (80.0-96.0); RED CELL DISTRIBUTION WIDTH 13.1 % (11.5-14.5); WHITE BLOOD COUNT 6.4 K/mm3 (4.0-10.0)
[2016-03-11 07:24] LABS: ANION GAP 9 MEQ/L (8-16); BLOOD UREA NITROGEN 18 MG/DL (7-18); CALCIUM LEVEL 8.8 MG/DL (8.8-10.2); CARBON DIOXIDE LEVEL 24 MEQ/L (21-32); CHLORIDE LEVEL 112 MEQ/L (98-107); CREATININE FOR GFR 1.08 MG/DL (0.70-1.30); GLOMERULAR FILTRATION RATE > 60.0 (>42); GLUCOSE, FASTING 114 MG/DL (83-110); POTASSIUM SERUM 3.5 MEQ/L (3.5-5.1); SODIUM LEVEL 145 MEQ/L (136-145)
[2016-03-11 08:00] VITALS: BP 158/90
[2016-03-11] MEDS: MULTIVITAMINS/MINERALS THERAP 1 TAB PO SCH (12:07)
[2016-03-11] MEDS: DOCUSATE SODIUM 100 MG CAP PO SCH ×2 (12:07→19:58)
[2016-03-11] MEDS: CYANOCOBALAMIN 1,000 MCG/ML VIAL (J3420) IM SCH (12:07)
[2016-03-11] MEDS: risperiDONE 2 MG TAB PO SCH ×2 (12:08→17:13)
[2016-03-11] MEDS: ATORVASTATIN 20 MG TAB PO SCH (12:08)
[2016-03-11] MEDS: PANTOPRAZOLE 40MG TAB (PROTONIX) PO SCH (12:08)
[2016-03-11] MEDS: GABAPENTIN 300 MG CAP PO SCH ×2 (12:13→19:58)
--- NOTE | 2016-03-11 14:17 | CR ---
DATE OF CONSULTATION: 03/11/2016 LOCATION: [address] [place] [address], room #9783 The patient was seen yesterday afternoon on consultation and was in reasonably good behavioral control. However, later on, about 5:00 p.m., he became agitated. He attempted to strike out at nursing staff. He was quite paranoid and fearful that staff had called police to take him off to snf. He demanded a SWAT team be called into the hospital for his own safety. The patient did require a Code 25 and received the Haldol/Ativan combination. He appeared to tolerate it well, but surprisingly stayed awake until approximately 4:00 a.m. this morning. At that point in time, he did fall asleep until about noon. He was then given his morning Risperdal at that point in time. Further information has been received from the [id number] that the patient, since assisted 15 years ago, would stay up all night drinking and then sleep most of the day. Given this longstanding abnormal pattern of his, it might take some time for the psychotropics to help regulate his sleep/wake cycle. MENTAL STATUS EXAMINATION: The patient is eating lunch. He is sitting comfortably in his hospital bed. He does respond to my questions. He does have some minor cognitive slowing. He is not agitated. He is not voicing any paranoid beliefs. He does smile easily. Not reporting any depressive symptoms. He again is disoriented, but appears to be tolerating his psychotropics well. IMPRESSION: Dementia with agitation. PLAN: Continue current regimen of Risperdal 2 mg twice a day. Staff report that he had another EKG earlier today. His most recent EKG showed a QTC interval at 425, which is well within normal limits. In my clinical opinion, using the as needed Haldol/Ativan combination on an as needed basis is safe during episodes of agitation. CEFERINOD
--- NOTE | 2016-03-11 15:06 | ECGEPIP ---
Stationary ECG Study [facility] Test Date: 2016-03-11 Pat Name: DICK GARCIA Department: Room: [place] [address] Gender: M Addictions Counselor Assistant: IBRAHIMA : 1940 Requested By: MAEGAN ESPARZA Order Number: [id number] Reading MD: Saturnino Barbosa Measurements Intervals [place] Rate: 57 P: 0 VA: 156 QRS: -32 QRSD: 98 T: 34 QT: 425 QTc: 415 Interpretive Statements Sinus bradycardia Left axis deviation Early anterior R wave progression Nonspecific T wave abnormality No significant change when compared to prior tracing of 03/05/2016 Electronically Signed On 03-11-2016 15:05:49 EST by Saturnino Barbosa
--- NOTE | 2016-03-11 16:01 | IPN ---
DATE OF ENCOUNTER: 03/10/2016 Approximately 4:30 p.m., the patient had a sundowning episode and patient became more agitated and he became more physical toward nursing staff and Code 25 was called. Patient has been seen by the psychiatrist in the past 2 days. His antipsychotic medication is being adjusted. Currently, patient is on Risperdal 2 mg by mouth twice a day. In the past 2 days, patient has been awake for a long duration. He has been up for 36 hours and he fell asleep. When he woke up, he started having the delirious episodes. I discussed with the psychiatrist, due to the history of alcohol-induced encephalopathy, we will start a trial to begin of gabapentin 300 mg by mouth twice a day additional to the Risperdal 2 mg by mouth twice a day. The psychiatrist will reassess the patient tomorrow, and he will provide further guidance.
[2016-03-11] MEDS: QUEtiapine FUMARATE 25 MG TAB PO SCH (19:58)
[2016-03-12] MEDS: risperiDONE 2 MG TAB PO SCH ×2 (05:55→17:14)
[2016-03-12 07:00] VITALS: BP 114/71
[2016-03-12] MEDS: PANTOPRAZOLE 40MG TAB (PROTONIX) PO SCH (08:45)
[2016-03-12] MEDS: ATORVASTATIN 20 MG TAB PO SCH (08:45)
[2016-03-12] MEDS: ACETAMINOPHEN TAB 650MG DOSE (2X325MG) PO PRN (08:46)
[2016-03-12] MEDS: MULTIVITAMINS/MINERALS THERAP 1 TAB PO SCH (08:46)
[2016-03-12] MEDS: DOCUSATE SODIUM 100 MG CAP PO SCH ×2 (08:46→19:32)
[2016-03-12] MEDS: GABAPENTIN 300 MG CAP PO SCH ×2 (08:46→19:33)
[2016-03-12] MEDS: LORazepam 2 MG/ML VIAL (J2060) IM PRN (15:46)
[2016-03-12] MEDS: QUEtiapine FUMARATE 25 MG TAB PO SCH (19:33)
[2016-03-13] MEDS: LORazepam 2 MG/ML VIAL (J2060) IM PRN ×2 (00:14→20:10)
[2016-03-13] MEDS: risperiDONE 2 MG TAB PO SCH ×2 (06:44→17:22)
[2016-03-13 07:40] VITALS: BP 120/77
[2016-03-13] MEDS: DOCUSATE SODIUM 100 MG CAP PO SCH ×3 (08:40→19:35)
[2016-03-13] MEDS: PANTOPRAZOLE 40MG TAB (PROTONIX) PO SCH (08:40)
[2016-03-13] MEDS: GABAPENTIN 300 MG CAP PO SCH ×2 (08:40→19:30)
[2016-03-13] MEDS: ATORVASTATIN 20 MG TAB PO SCH (08:40)
[2016-03-13] MEDS: MULTIVITAMINS/MINERALS THERAP 1 TAB PO SCH (08:40)
[2016-03-13] MEDS: QUEtiapine FUMARATE 25 MG TAB PO SCH (19:30)
[2016-03-14] MEDS: risperiDONE 2 MG TAB PO SCH ×2 (06:42→17:39)
[2016-03-14 08:00] VITALS: BP 131/70
[2016-03-14] MEDS: MULTIVITAMINS/MINERALS THERAP 1 TAB PO SCH (09:27)
[2016-03-14] MEDS: ATORVASTATIN 20 MG TAB PO SCH (09:27)
[2016-03-14] MEDS: GABAPENTIN 300 MG CAP PO SCH ×2 (09:27→19:54)
[2016-03-14] MEDS: DOCUSATE SODIUM 100 MG CAP PO SCH ×2 (09:27→19:54)
[2016-03-14] MEDS: PANTOPRAZOLE 40MG TAB (PROTONIX) PO SCH (09:27)
[2016-03-14] MEDS: QUEtiapine FUMARATE 25 MG TAB PO SCH (19:54)
[2016-03-14] MEDS: LORazepam 2 MG/ML VIAL (J2060) IM PRN (22:19)
--- NOTE | 2016-03-15 06:25 | CR ---
DATE OF CONSULTATION: 03/14/2016 The patient is seen again today and nursing staff are interviewed. They report he did get agitated again last night and did require an Ativan with good response. Fortunately, he did fall asleep about 10:30 p.m. He then woke up this morning and took his 6:00 a.m. dose of Risperdal; however, subsequently he has slept all morning and is sleeping here at 1:00 p.m. in the afternoon. It appears that the morning dose of Risperdal is too sedating. The patient does seem to be tolerating the Risperdal well otherwise. His QTc interval is 415, which is well within normal limits. MENTAL STATUS EXAMINATION: The patient is sleeping comfortably so I am not able to perform a normal mental status exam. 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 PLAN: Starting tomorrow, 03/15/2016, I would recommend switching the times for his oral Risperdal dosage. I would recommend discontinuing the 6:00 a.m. dose of Risperdal. I would recommend prescribing a dose of Risperdal 2 mg at 2:00 p.m. The patient should get a second dose of Risperdal 2 mg at 6:00 p.m. as usual. Hopefully, loading the Risperdal dosage later in the day will help him with his sleep hygiene. The staff may still use the Ativan dose in combination on an as needed basis to help control any signs of agitation. The patient will be monitored.
[2016-03-15 07:00] VITALS: BP 137/68
[2016-03-15] MEDS: GABAPENTIN 300 MG CAP PO SCH ×2 (10:15→19:58)
[2016-03-15] MEDS: MULTIVITAMINS/MINERALS THERAP 1 TAB PO SCH (10:15)
[2016-03-15] MEDS: risperiDONE 2 MG TAB PO SCH ×2 (10:15→17:30)
[2016-03-15] MEDS: ACETAMINOPHEN TAB 650MG DOSE (2X325MG) PO PRN ×2 (10:15→19:59)
[2016-03-15] MEDS: DOCUSATE SODIUM 100 MG CAP PO SCH ×2 (10:15→19:58)
[2016-03-15] MEDS: ATORVASTATIN 20 MG TAB PO SCH (10:15)
[2016-03-15] MEDS: PANTOPRAZOLE 40MG TAB (PROTONIX) PO SCH (10:15)
[2016-03-15] MEDS: LORazepam 2 MG/ML VIAL (J2060) IM PRN (19:39)
[2016-03-15] MEDS: QUEtiapine FUMARATE 25 MG TAB PO SCH (19:58)
[2016-03-16 07:00] VITALS: BP 126/82
[2016-03-16 08:47] VITALS: BP 116/69
[2016-03-16] MEDS: PANTOPRAZOLE 40MG TAB (PROTONIX) PO SCH (09:46)
[2016-03-16] MEDS: ATORVASTATIN 20 MG TAB PO SCH (09:46)
[2016-03-16] MEDS: GABAPENTIN 300 MG CAP PO SCH ×2 (09:46→19:51)
[2016-03-16] MEDS: DOCUSATE SODIUM 100 MG CAP PO SCH ×2 (09:46→19:51)
[2016-03-16] MEDS: MULTIVITAMINS/MINERALS THERAP 1 TAB PO SCH (09:46)
[2016-03-16] MEDS: LORazepam 2 MG/ML VIAL (J2060) IM PRN (11:02)
--- NOTE | 2016-03-16 11:57 | IPNPDOC ---
Assessment/Plan Date Seen The patient was seen on 03/16/16. Problems Problems: (1) Dementia with psychosis Status: Acute Response to Treatment: Uncontrolled Problem Text: * Psych last evaluated patient on 03/14. * Due to high risk of cardiac arrhythmia, recommended 5mg Haldol BID was not given. * Haldol was changed to Risperdal. Risperdal at 2pm and 6pm, with haldol and ativan prn * Continue seroquel at bedtime * Increase risperdal by 1mg daily if needed. Close monitoring patient for adverse effects. (2) Dementia Status: Chronic Problem Text: * has a mini mental score of 22, lost points in immediate recall , and short term recall and spelling back duarte. * Does not have insight and has poor judgement at this point. Patient does not have any decisional capacity. * Has episodes of delirium (i.e. thinking his brother is his father) * will continue with Risperdal BID, seroquel qhs, and prn meds * will need halfway placement. * Consulted psych and agrees patient need guardianship. * Monitor for agitation overnight * (3) OSMIN (acute kidney injury) Status: Resolved Problem Text: * prerenal from poor intake, resolved with IVF (4) Hyperlipidemia Status: Chronic Problem Text: continue statin (5) Diabetes Status: Chronic Problem Text: a1c is 6.2 will not need meds on discharge. Can be managed with diet control. continue sliding scale insulin. (6) GERD (gastroesophageal reflux disease) Status: Chronic Problem Text: continue PPI (7) Frequent falls Status: Chronic Problem Text: due to generalized muscular deconditioning. PT evaluation. (8) Sinus bradycardia Status: Chronic Problem Text: * Heart rate stable, no bradycardia (9) Vitamin B 12 deficiency Status: Chronic Problem Text: on IM vitamin b 12 weekly. Plan / VTE VTE Prophylaxis Ordered?: Yes (lovenox) Subjective CC/HPI The patient is a 76-year-old male admitted with a reason for visit of Acute Kidney Injury. Events since last encounter Patient was seen this morning at bedside. Per staff, he sleep all night. He has dementia, denies all symptoms. No chest pain, shortness of breath, nausea, vomiting, abd pain, diarrhea. Denies pain any where. Seen by psych and adjustments with meds were implemented. Objective General Exam: : Alert: Cooperative: No Acute Distress Eye Exam: : Conjunctiva & lids normal: EOMI: PERRLANo: Sclera icteric ENT Exam: : Atraumatic: Mucous membr. moist/pink: Pharynx Normal Chest Exam: : Clear to auscultation: Normal air movement Heart Exam: : Normal S1: Normal S2: Rate Normal: Regular RhythmNo: Murmurs, Rubs Abdomen Exam: : Normal bowel sounds: SoftNo: Hepatospenomegaly, Tenderness Extremity Exam: : Normal pulsesNo: Clubbing, Cyanosis, Edema Skin Exam: : Nl turgor and temperatureNo: Rash Neuro Exam: : Cranial Nerves 3-12 NL: Sensation Intact: Strength at 5/5 X4 ext Psych Exam: : Other (episodes of delirium)No: Memory Intact Vital Signs I&O Vital Sign - Last 24 Hours 03/16/16 08:47 Temp 96.8 Pulse 111 Resp 16 B/P 116/69 Pulse Ox 96 O2 Delivery Room Air I&O- Last 24 Hours up to 6 AM 03/16/16 06:00 Intake Total 2400 ml Balance 2400 ml Laboratory Data Labs 24H Laboratory Tests 2 03/15/16 16:26: Bedside Glucose (Misc Panel) 110 03/16/16 06:45: Bedside Glucose (Misc Panel) 114H FSBS Laboratory Tests Test 03/15/16 16:26 03/16/16 06:45 Range/Units Bedside Glucose (Misc Panel) 110 114 83-110 MG/DL Medications Medications Current Medications Medications (Trade) Dose Ordered Sig/Donnie Route PRN Reason Start Time Stop Time Status Last Admin Dose Admin Acetaminophen (Tylenol) 650 mg Q4HP PRN PO MILD PAIN OR FEVER 02/12/16 17:45 04/11/16 17:44 03/15/16 19:59 Atorvastatin Calcium (Lipitor) 20 mg DAILY PO 02/13/16 09:00 04/12/16 08:59 03/16/16 09:46 Cyanocobalamin (Vitamin B12 Injection) 1,000 mcg DAILY IM 02/12/16 09:00 02/15/16 14:22 DC 02/15/16 08:19 Cyanocobalamin (Vitamin B12 Injection) 1,000 mcg @09 IM 02/19/16 09:00 03/20/16 08:59 03/11/16 12:07 Dextrose (Dextrose 50%) 25 ml ASDIRECTED PRN IV SEE LABEL COMMENTS 02/12/16 18:30 04/11/16 18:29 Diphenhydramine HCl (Benadryl) 50 mg ONCE ONCE PO 03/09/16 08:00 03/09/16 08:01 DC 03/09/16 08:45 Docusate Sodium (Colace) 100 mg BID PO 02/12/16 21:00 04/11/16 20:59 03/16/16 09:46 Gabapentin (Neurontin) 300 mg BID PO 03/10/16 21:00 04/09/16 20:59 Future hold 03/16/16 09:46 Glucagon 1 mg 1 mg ASDIRECTED PRN SC SEE LABEL COMMENTS 02/12/16 18:30 04/11/16 18:29 Glucose (Glucose) 16 GM ASDIRECTED PRN PO SEE LABEL COMMENTS 02/12/16 18:30 04/11/16 18:29 Haloperidol (Haldol) 1 mg Q6HP PRN PO AGITATION 03/05/16 09:15 03/10/16 14:20 DC 03/09/16 19:26 Haloperidol (Haldol) 2 mg BID PO 03/05/16 09:00 03/09/16 15:57 DC 03/09/16 08:45 Haloperidol (Haldol) 2 mg DAILY PRN IM AGITATION 03/02/16 00:15 03/02/16 11:32 DC 03/02/16 00:24 Haloperidol (Haldol) 2 mg Q6HP PRN IM AGITATION 03/07/16 16:15 03/10/16 14:20 DC 03/08/16 18:24 Haloperidol (Haldol) 2 mg QHSP PRN IM AGITATION 03/04/16 00:00 03/10/16 14:20 DC 03/09/16 00:46 Haloperidol (Haldol) 5 mg QPM PRN IM AGITATION 03/10/16 17:00 04/09/16 16:59 03/10/16 17:03 Haloperidol (Haldol) 5 mg STK-MED ONCE As Ordered 03/10/16 16:53 03/10/16 16:54 DC Heparin Sodium (Porcine) (Heparin) 5,000 units Q12H SC 02/12/16 21:00 03/03/16 18:04 DC 03/03/16 08:26 Home Med (Med Rec Complete!) ASDIRECTED XX 02/12/16 16:00 02/12/16 16:00 DC Insulin Human Lispro (HumaLOG INSULIN) SEE PROTOCOL TABLE AC SC 02/13/16 07:30 02/15/16 08:00 DC 02/14/16 18:10 Insulin Human Lispro (HumaLOG INSULIN) SEE PROTOCOL TABLE QHS SC 02/12/16 21:00 02/15/16 08:00 DC Lorazepam (Ativan) 1 mg Q6HP PRN IV ANXIETY/AGITATION 02/13/16 19:30 02/15/16 14:26 DC 02/14/16 18:47 Lorazepam (Ativan) 1 mg Q8HP PRN PO ANXIETY 02/28/16 12:00 03/05/16 09:17 DC 03/04/16 19:50 Lorazepam (Ativan) 1 mg Q8HP PRN PO ANXIETY 03/05/16 09:45 03/05/16 12:02 DC Lorazepam (Ativan) 2 mg Q4HP PRN IM AGITATION 03/10/16 17:00 03/17/16 16:59 03/16/16 11:02 Lorazepam (Ativan) 2 mg Q4HP PRN IV AGITATION 03/10/16 16:45 03/10/16 16:53 DC Lorazepam (Ativan) 2 mg Q6HP PRN IM AGITATION 02/15/16 14:30 03/05/16 09:17 DC 03/04/16 23:32 Lorazepam (Ativan) 2 mg STK-MED ONCE As Ordered 03/10/16 16:54 03/10/16 16:55 DC Multivitamins (Theragram-M) 2 tab DAILY PO 02/12/16 09:00 04/11/16 08:59 03/16/16 09:46 Nadolol (Corgard) 40 mg DAILY PO 02/12/16 09:00 02/12/16 23:53 DC Ondansetron HCl (Zofran) 4 mg Q6HP PRN IV NAUSEA OR VOMITING 02/12/16 17:45 02/18/16 15:53 DC Pantoprazole Sodium 40 mg 40 mg DAILY PO 02/13/16 09:00 04/12/16 08:59 03/16/16 09:46 Polyethylene Glycol (Miralax) 1 pkt DAILYPRN PRN PO CONSTIPATION 02/15/16 14:30 04/14/16 14:29 Quetiapine Fumarate (SEROquel) 12.5 mg BID PO 02/13/16 21:00 02/21/16 10:44 DC 02/21/16 09:50 Quetiapine Fumarate (SEROquel) 25 mg BID PO 02/21/16 21:00 02/26/16 14:41 DC 02/26/16 09:01 Quetiapine Fumarate (SEROquel) 25 mg DAILY@12 PO 02/27/16 12:00 03/05/16 09:51 DC 03/03/16 12:01 Quetiapine Fumarate (SEROquel) 25 mg QHS PO 02/26/16 21:00 03/27/16 20:59 03/15/16 19:58 Risperidone (RisperDAL) 2 mg BID PO 03/09/16 21:00 03/09/16 21:00 DC Risperidone (RisperDAL) 2 mg BID@06,18 PO 03/09/16 18:00 03/15/16 19:19 DC 03/15/16 17:30 Risperidone (RisperDAL) 2 mg BID@14,18 PO 03/16/16 14:00 04/15/16 13:59 Sodium Biphosphate/ Sodium Phosphate (Fleet Enema) 1 ENEMA DAILYPRN PRN [place] CONSTIPATION 02/15/16 14:30 04/14/16 14:29 Sodium Chloride (Nacl 0.9%) 1,000 ml @ 60 mls/hr [id number] IV 02/12/16 17:39 02/13/16 09:08 DC 02/13/16 04:23 Sodium Chloride (Nacl 0.9%) 1,000 ml @ 60 mls/hr [id number] IV 02/13/16 09:07 02/13/16 20:52 DC 02/13/16 12:02 Allergies Coded Allergies: Sulfa Antibiotics (Unverified Allergy, Unknown, 02/12/16) GME ATTESTATION GME ATTESTATION My preceptor for this patient encounter was physically present in the building during the encounter and was fully available. As needed, all aspects of the patient interview, examination, medical decision making process, and medical care plan development were reviewed and approved by the preceptor. Preceptor is aware and concurs with the plan as stated in the body of this note and will attest to such by his/her cosignature. MAURICIO PLEITEZ DO Mar 16, 2016 11:57
[2016-03-16 12:12] LABS: MEAN CORPUSCULAR HEMOGLOBIN 34.3 pg (27.0-33.0); RED CELL DISTRIBUTION WIDTH 12.9 % (11.5-14.5); WHITE BLOOD COUNT 6.9 K/mm3 (4.0-10.0)
[2016-03-16] MEDS: ENOXAPARIN 40 MG/0.4 ML SYRINGE (J1650) SC SCH (12:16)
[2016-03-16 12:41] LABS: ANION GAP 7 MEQ/L (8-16); BLOOD UREA NITROGEN 18 MG/DL (7-18); CARBON DIOXIDE LEVEL 29 MEQ/L (21-32); CHLORIDE LEVEL 108 MEQ/L (98-107); CREATININE FOR GFR 1.19 MG/DL (0.70-1.30); GLOMERULAR FILTRATION RATE > 60.0 (>42); GLUCOSE, FASTING 186 MG/DL (83-110); POTASSIUM SERUM 4.3 MEQ/L (3.5-5.1); SODIUM LEVEL 144 MEQ/L (136-145)
[2016-03-16] MEDS: risperiDONE 2 MG TAB PO SCH ×2 (14:21→17:32)
[2016-03-16] MEDS: ACETAMINOPHEN TAB 650MG DOSE (2X325MG) PO PRN (14:21)
--- NOTE | 2016-03-16 16:30 | CR ---
DATE OF CONSULTATION: 03/16/2016 The patient is seen today and nursing staff are interviewed. The patient is now on the Risperdal 2 mg at 2:00 p.m. and 6:00 p.m. for a total of 4 mg per day. His sleep hygiene has improved. He is now sleeping at night apparently. He then wakes up in the morning typically pleasant. He does get irritable, however, off-and-on throughout the day. He has required intramuscular (IM) Ativan for two days in a row which helps with his agitation. He can still get aggressive with staff and striking out at the nurses and other staff who provide care for him. The patient appears to be tolerating the Risperdal just fine. MENTAL STATUS EXAMINATION: The patient is seen in the early afternoon. He is resting. He is lying comfortably, sitting upright in his hospital bed. He is alert. He is awake. He is quite verbal today. He is pleasant. He is cheerful. He smiles frequently. He is not depressed. He is not agitated. No paranoid ideation. His speech is quite rambling, however, and nonsensical. The patient is completely disoriented but is not currently agitated or dangerous. IMPRESSION: Dementia, secondary to alcoholism. PLAN: As the patient is still having some behavior issues on this current dose of Risperdal, it is safe to increase the dosage. I would recommend increasing it to 3 mg each at 2:00 p.m. and 6:00 p.m. Staff may continue to use the as-needed doses of Ativan and Haldol as needed for agitation or for aggressive behavior that places self or others at risk.
[2016-03-16] MEDS: QUEtiapine FUMARATE 25 MG TAB PO SCH (19:51)
[2016-03-17 07:00] VITALS: BP 134/85
[2016-03-17 08:47] VITALS: BP 118/77
[2016-03-17] MEDS: ATORVASTATIN 20 MG TAB PO SCH ×2 (09:00→09:05)
[2016-03-17] MEDS: ENOXAPARIN 40 MG/0.4 ML SYRINGE (J1650) SC SCH ×2 (09:00→09:05)
[2016-03-17] MEDS: MULTIVITAMINS/MINERALS THERAP 1 TAB PO SCH ×2 (09:00→09:03)
[2016-03-17] MEDS: GABAPENTIN 300 MG CAP PO SCH ×3 (09:00→19:44)
[2016-03-17] MEDS: PANTOPRAZOLE 40MG TAB (PROTONIX) PO SCH ×2 (09:00→09:04)
[2016-03-17] MEDS: DOCUSATE SODIUM 100 MG CAP PO SCH ×3 (09:00→19:44)
[2016-03-17] MEDS: ACETAMINOPHEN TAB 650MG DOSE (2X325MG) PO PRN (09:04)
[2016-03-17] MEDS: risperiDONE 3 MG TAB PO SCH ×2 (14:25→17:38)
[2016-03-17] MEDS: QUEtiapine FUMARATE 25 MG TAB PO SCH (19:44)
[2016-03-18 07:20] LABS: MEAN CORPUSCULAR HEMOGLOBIN 33.9 pg (27.0-33.0); MEAN CORPUSCULAR HGB CONC 34.8 g/dl (32.0-36.5); MEAN CORPUSCULAR VOLUME 97.5 fl (80.0-96.0); RED CELL DISTRIBUTION WIDTH 13.7 % (11.5-14.5); WHITE BLOOD COUNT 7.1 K/mm3 (4.0-10.0)
[2016-03-18 07:41] LABS: ANION GAP 6 MEQ/L (8-16); BLOOD UREA NITROGEN 13 MG/DL (7-18); CALCIUM LEVEL 8.9 MG/DL (8.8-10.2); CARBON DIOXIDE LEVEL 29 MEQ/L (21-32); CHLORIDE LEVEL 109 MEQ/L (98-107); CREATININE FOR GFR 1.14 MG/DL (0.70-1.30); GLOMERULAR FILTRATION RATE > 60.0 (>42); GLUCOSE, FASTING 115 MG/DL (83-110); POTASSIUM SERUM 3.7 MEQ/L (3.5-5.1); SODIUM LEVEL 144 MEQ/L (136-145)
[2016-03-18 08:00] VITALS: BP 124/78
[2016-03-18] MEDS: CYANOCOBALAMIN 1,000 MCG/ML VIAL (J3420) IM SCH (08:26)
[2016-03-18] MEDS: PANTOPRAZOLE 40MG TAB (PROTONIX) PO SCH (08:26)
[2016-03-18] MEDS: GABAPENTIN 300 MG CAP PO SCH ×2 (08:26→19:39)
[2016-03-18] MEDS: ENOXAPARIN 40 MG/0.4 ML SYRINGE (J1650) SC SCH (08:26)
[2016-03-18] MEDS: ACETAMINOPHEN TAB 650MG DOSE (2X325MG) PO PRN (08:27)
[2016-03-18] MEDS: MULTIVITAMINS/MINERALS THERAP 1 TAB PO SCH (08:27)
[2016-03-18] MEDS: ATORVASTATIN 20 MG TAB PO SCH (08:27)
[2016-03-18] MEDS: DOCUSATE SODIUM 100 MG CAP PO SCH ×2 (08:27→19:39)
[2016-03-18] MEDS: risperiDONE 3 MG TAB PO SCH ×2 (14:14→17:20)
[2016-03-18] MEDS: LORazepam 2 MG/ML VIAL (J2060) IM PRN ×2 (15:24→23:06)
[2016-03-18] MEDS: QUEtiapine FUMARATE 25 MG TAB PO SCH (19:39)
[2016-03-19 07:00] VITALS: BP 132/79
[2016-03-19] MEDS: PANTOPRAZOLE 40MG TAB (PROTONIX) PO SCH (09:25)
[2016-03-19] MEDS: MULTIVITAMINS/MINERALS THERAP 1 TAB PO SCH (09:25)
[2016-03-19] MEDS: GABAPENTIN 300 MG CAP PO SCH ×2 (09:25→19:28)
[2016-03-19] MEDS: ENOXAPARIN 40 MG/0.4 ML SYRINGE (J1650) SC SCH (09:25)
[2016-03-19] MEDS: DOCUSATE SODIUM 100 MG CAP PO SCH ×2 (09:25→19:28)
[2016-03-19] MEDS: ATORVASTATIN 20 MG TAB PO SCH (09:25)
[2016-03-19] MEDS: risperiDONE 3 MG TAB PO SCH ×2 (14:05→17:31)
[2016-03-19] MEDS: QUEtiapine FUMARATE 25 MG TAB PO SCH (19:28)
[2016-03-20 07:00] VITALS: BP 109/65
[2016-03-20] MEDS: ENOXAPARIN 40 MG/0.4 ML SYRINGE (J1650) SC SCH (08:46)
[2016-03-20] MEDS: DOCUSATE SODIUM 100 MG CAP PO SCH ×2 (08:47→19:21)
[2016-03-20] MEDS: PANTOPRAZOLE 40MG TAB (PROTONIX) PO SCH (08:47)
[2016-03-20] MEDS: GABAPENTIN 300 MG CAP PO SCH ×2 (08:47→19:21)
[2016-03-20] MEDS: MULTIVITAMINS/MINERALS THERAP 1 TAB PO SCH (08:47)
[2016-03-20] MEDS: ATORVASTATIN 20 MG TAB PO SCH (08:47)
[2016-03-20] MEDS: risperiDONE 3 MG TAB PO SCH ×2 (13:47→17:25)
[2016-03-20] MEDS: ACETAMINOPHEN TAB 650MG DOSE (2X325MG) PO PRN (13:48)
[2016-03-20] MEDS: QUEtiapine FUMARATE 25 MG TAB PO SCH (19:21)
[2016-03-21 07:53] VITALS: BP 140/81
[2016-03-21] MEDS: DOCUSATE SODIUM 100 MG CAP PO SCH ×2 (09:16→19:46)
[2016-03-21] MEDS: PANTOPRAZOLE 40MG TAB (PROTONIX) PO SCH (09:16)
[2016-03-21] MEDS: ENOXAPARIN 40 MG/0.4 ML SYRINGE (J1650) SC SCH (09:16)
[2016-03-21] MEDS: GABAPENTIN 300 MG CAP PO SCH ×2 (09:16→19:46)
[2016-03-21] MEDS: ATORVASTATIN 20 MG TAB PO SCH (09:16)
[2016-03-21] MEDS: MULTIVITAMINS/MINERALS THERAP 1 TAB PO SCH (09:16)
[2016-03-21] MEDS: risperiDONE 3 MG TAB PO SCH ×2 (14:02→18:00)
[2016-03-21] MEDS: LORazepam 2 MG/ML VIAL (J2060) IM PRN (19:31)
[2016-03-21] MEDS: QUEtiapine FUMARATE 25 MG TAB PO SCH (19:46)
[2016-03-21] MEDS: ACETAMINOPHEN TAB 650MG DOSE (2X325MG) PO PRN (19:47)
[2016-03-22 06:47] LABS: MEAN CORPUSCULAR HEMOGLOBIN 34.9 pg (27.0-33.0); MEAN CORPUSCULAR VOLUME 96.9 fl (80.0-96.0); RED CELL DISTRIBUTION WIDTH 12.9 % (11.5-14.5); WHITE BLOOD COUNT 5.4 K/mm3 (4.0-10.0)
[2016-03-22 07:00] VITALS: BP 102/71
[2016-03-22 07:01] LABS: ANION GAP 8 MEQ/L (8-16); BLOOD UREA NITROGEN 12 MG/DL (7-18); CALCIUM LEVEL 8.7 MG/DL (8.8-10.2); CARBON DIOXIDE LEVEL 27 MEQ/L (21-32); CHLORIDE LEVEL 111 MEQ/L (98-107); CREATININE FOR GFR 1.04 MG/DL (0.70-1.30); GLOMERULAR FILTRATION RATE > 60.0 (>42); GLUCOSE, FASTING 108 MG/DL (83-110); POTASSIUM SERUM 3.7 MEQ/L (3.5-5.1); SODIUM LEVEL 146 MEQ/L (136-145)
[2016-03-22] MEDS: PANTOPRAZOLE 40MG TAB (PROTONIX) PO SCH (08:53)
[2016-03-22] MEDS: ATORVASTATIN 20 MG TAB PO SCH (08:53)
[2016-03-22] MEDS: ACETAMINOPHEN TAB 650MG DOSE (2X325MG) PO PRN (08:53)
[2016-03-22] MEDS: ENOXAPARIN 40 MG/0.4 ML SYRINGE (J1650) SC SCH (08:53)
[2016-03-22] MEDS: DOCUSATE SODIUM 100 MG CAP PO SCH ×2 (08:53→19:43)
[2016-03-22] MEDS: MULTIVITAMINS/MINERALS THERAP 1 TAB PO SCH (08:53)
[2016-03-22] MEDS: GABAPENTIN 300 MG CAP PO SCH ×2 (08:53→19:43)
[2016-03-22] MEDS: risperiDONE 3 MG TAB PO SCH ×2 (13:25→17:44)
[2016-03-22] MEDS: QUEtiapine FUMARATE 25 MG TAB PO SCH (19:43)
[2016-03-23] MEDS: LORazepam 2 MG/ML VIAL (J2060) IM PRN ×2 (03:04→19:30)
[2016-03-23 07:00] VITALS: BP 146/89
[2016-03-23] MEDS: DOCUSATE SODIUM 100 MG CAP PO SCH ×2 (10:43→19:30)
[2016-03-23] MEDS: ENOXAPARIN 40 MG/0.4 ML SYRINGE (J1650) SC SCH (10:43)
[2016-03-23] MEDS: ATORVASTATIN 20 MG TAB PO SCH (10:43)
[2016-03-23] MEDS: GABAPENTIN 300 MG CAP PO SCH ×2 (10:43→19:30)
[2016-03-23] MEDS: PANTOPRAZOLE 40MG TAB (PROTONIX) PO SCH (10:43)
[2016-03-23] MEDS: MULTIVITAMINS/MINERALS THERAP 1 TAB PO SCH (10:43)
--- NOTE | 2016-03-23 13:39 | IPN ---
DATE: 03/23/2016 Patient has been doing well since his Risperdal was increased. He is seen and examined today. The patient is sitting watching television. He seems to be agreeable and cooperative with his examination. He had no questions. He has had no issues over the past seven days. He currently denies any chest pain, pressure or tightness, shortness of breath. No nausea, vomiting, epigastric pain, diarrhea, or constipation. He tolerating his diet well. He denies any dysuria, urgency, frequency, fever, chills or flank pain. VITAL SIGNS: Temperature 95.6, pulse 80, respiratory rate 18, blood pressure 146/89, 95% on room air. LUNGS: Clear to auscultation. No wheezes, rales, or rhonchi. HEART: S1, S2. Sinus. ABDOMEN: Soft, nontender, nondistended. EXTREMITIES: No pitting edema. LABORATORY DATA: Has been reviewed. ASSESSMENT AND PLAN: 75-year-old male with type 2 diabetes, hypertension, hyperlipidemia, dementia, osteoarthritis, fall, recurrent alcohol abuse, reflux, hiatal hernia, Schatzki's ring, status post balloon dilation, hemorrhoids, diverticulosis, sinus bradycardia, confusion, delirium, patient of Dr. Jonas Rico, who was admitted on 02/12/2016 for altered mental status. CURRENT ISSUES: 1. Dementia with psychosis. The patient has been on Risperdal and appears to be stable. Haldol and Ativan as needed. Continue Seroquel at bedtime. Due to high risk cardiac arrhythmia, Haldol 5 mg twice a day has been discontinued. The patient will need long-term placement due to advancing dementia. 2. Acute kidney injury with hypernatremia. Monitor with a metabolic panel. Encourage oral intake. 3. Hyperlipidemia. On statin. 4. Diabetes, chronic and controlled on no medications. A1/c is 6.2 on sliding scale. 5. Reflux. Continue proton pump inhibitor. 6. Frequent falls. The patient will need placement. 7. Sinus bradycardia. Heart rate is stable. 8. Vitamin B12 deficiency. Weekly B12 supplements. MTDD
--- NOTE | 2016-03-23 13:42 | IPN ---
ADDENDUM: 03/23/2016 VITAL SIGNS: Temperature 95.6, pulse 80, respiratory rate 18, blood pressure 146/89, 95% on room air. LUNGS: Clear to auscultation. No wheezes, rales, or rhonchi. HEART: S1, S2. Sinus. ABDOMEN: Soft, nontender, nondistended. EXTREMITIES: No pitting edema. LABORATORY DATA: Has been reviewed. ASSESSMENT AND PLAN: 75-year-old male with type 2 diabetes, hypertension, hyperlipidemia, dementia, osteoarthritis, fall, recurrent alcohol abuse, reflux, hiatal hernia, Schatzki's ring, status post balloon dilation, hemorrhoids, diverticulosis, sinus bradycardia, confusion, delirium, patient of Dr. Jonas Rico, who was admitted on 02/12/2016 for altered mental status. CURRENT ISSUES: 1. Dementia with psychosis. The patient has been on Risperdal and appears to be stable. Haldol and Ativan as needed. Continue Seroquel at bedtime. Due to high risk cardiac arrhythmia, Haldol 5 mg twice a day has been discontinued. The patient will need long-term placement due to advancing dementia. 2. Acute kidney injury with hypernatremia. Monitor with a metabolic panel. Encourage oral intake. 3. Hyperlipidemia. On statin. 4. Diabetes, chronic and controlled on no medications. A1/c is 6.2 on sliding scale. 5. Reflux. Continue proton pump inhibitor. 6. Frequent falls. The patient will need placement. 7. Sinus bradycardia. Heart rate is stable. 8. Vitamin B12 deficiency. Weekly B12 supplements. MTDD
[2016-03-23] MEDS: risperiDONE 3 MG TAB PO SCH ×2 (13:56→17:40)
--- NOTE | 2016-03-23 16:01 | CR ---
DATE OF CONSULTATION: 03/23/2016 This is a 76-year-old white male with a history of dementia, last seen by me one week ago on 03/16/2016. The patient's Risperdal dose was increased at that time to 3 mg twice a day, taken at 2:00 p.m. and 6:00 p.m. The patient appears to be tolerating this higher dose of Risperdal reasonably well. His behavior has improved according to the nursing staff and nursing assistants. The patient still gets agitated at times and has required as-needed doses of Ativan. His sleep patterns have improved markedly. He typically will be awake most of the day and fall asleep at a reasonable hour in the evening. When the patient does get restless, he is not as aggressive as noticed before. He did have one incident where he tried to run out of his room and into another room down the [address], not once but twice. He did respond nicely to the intramuscular (IM) Ativan. MENTAL STATUS EXAMINATION: The patient appears alert today. He is disoriented as noted previously. He is not agitated. Speech is actually more coherent surprisingly. There is less paranoid content. He denies any auditory hallucinations. Insight and judgment remain impaired. No signs of parkinsonian symptoms. IMPRESSION: Dementia secondary to chronic alcoholism. PLAN: The patient has shown definite response to Risperdal. He is also on a small dose of Seroquel at bedtime too 25 mg at bedtime which may or may not be helping him for sleep. He is still requiring some as-needed doses of Ativan, but overall is less agitated and less paranoid. I would recommend keeping him on this current medication regimen for the time being with the hope that he will show further progress with time. Continued use of the as-needed Ativan and/or Haldol would be appropriate on an as-needed basis.
[2016-03-23] MEDS: QUEtiapine FUMARATE 25 MG TAB PO SCH (19:30)
[2016-03-24 07:00] VITALS: BP 127/73
[2016-03-24] MEDS: ACETAMINOPHEN TAB 650MG DOSE (2X325MG) PO PRN (09:04)
[2016-03-24] MEDS: GABAPENTIN 300 MG CAP PO SCH ×2 (09:04→19:27)
[2016-03-24] MEDS: ENOXAPARIN 40 MG/0.4 ML SYRINGE (J1650) SC SCH (09:04)
[2016-03-24] MEDS: MULTIVITAMINS/MINERALS THERAP 1 TAB PO SCH (09:04)
[2016-03-24] MEDS: PANTOPRAZOLE 40MG TAB (PROTONIX) PO SCH (09:04)
[2016-03-24] MEDS: DOCUSATE SODIUM 100 MG CAP PO SCH ×2 (09:04→19:27)
[2016-03-24] MEDS: ATORVASTATIN 20 MG TAB PO SCH (09:04)
[2016-03-24] MEDS: risperiDONE 3 MG TAB PO SCH ×2 (13:42→17:57)
[2016-03-24] MEDS: QUEtiapine FUMARATE 25 MG TAB PO SCH (19:27)
[2016-03-25 07:00] VITALS: BP 136/75
[2016-03-25 07:02] LABS: MEAN CORPUSCULAR HEMOGLOBIN 34.4 pg (27.0-33.0); MEAN CORPUSCULAR HGB CONC 35.4 g/dl (32.0-36.5); MEAN CORPUSCULAR VOLUME 97.2 fl (80.0-96.0); RED CELL DISTRIBUTION WIDTH 12.9 % (11.5-14.5)
[2016-03-25 07:08] LABS: ANION GAP 8 MEQ/L (8-16); BLOOD UREA NITROGEN 12 MG/DL (7-18); CALCIUM LEVEL 8.8 MG/DL (8.8-10.2); CARBON DIOXIDE LEVEL 28 MEQ/L (21-32); CHLORIDE LEVEL 113 MEQ/L (98-107); CREATININE FOR GFR 1.07 MG/DL (0.70-1.30); GLOMERULAR FILTRATION RATE > 60.0 (>42); GLUCOSE, FASTING 105 MG/DL (83-110); POTASSIUM SERUM 3.7 MEQ/L (3.5-5.1); SODIUM LEVEL 149 MEQ/L (136-145)
[2016-03-25] MEDS: CYANOCOBALAMIN 1,000 MCG/ML VIAL (J3420) IM SCH (09:20)
[2016-03-25] MEDS: GABAPENTIN 300 MG CAP PO SCH ×2 (09:21→19:31)
[2016-03-25] MEDS: ATORVASTATIN 20 MG TAB PO SCH (09:21)
[2016-03-25] MEDS: MULTIVITAMINS/MINERALS THERAP 1 TAB PO SCH (09:21)
[2016-03-25] MEDS: PANTOPRAZOLE 40MG TAB (PROTONIX) PO SCH (09:21)
[2016-03-25] MEDS: DOCUSATE SODIUM 100 MG CAP PO SCH ×2 (09:21→19:31)
[2016-03-25] MEDS: ENOXAPARIN 40 MG/0.4 ML SYRINGE (J1650) SC SCH (09:21)
[2016-03-25] MEDS: ACETAMINOPHEN TAB 650MG DOSE (2X325MG) PO PRN (10:41)
[2016-03-25] MEDS: risperiDONE 3 MG TAB PO SCH ×2 (14:39→17:18)
[2016-03-25] MEDS: QUEtiapine FUMARATE 25 MG TAB PO SCH (19:31)
[2016-03-26 07:02] LABS: ANION GAP 9 MEQ/L (8-16); BLOOD UREA NITROGEN 12 MG/DL (7-18); CALCIUM LEVEL 8.9 MG/DL (8.8-10.2); CARBON DIOXIDE LEVEL 27 MEQ/L (21-32); CHLORIDE LEVEL 109 MEQ/L (98-107); GLOMERULAR FILTRATION RATE > 60.0 (>42); GLUCOSE, FASTING 115 MG/DL (83-110); POTASSIUM SERUM 3.6 MEQ/L (3.5-5.1); SODIUM LEVEL 145 MEQ/L (136-145)
[2016-03-26 08:00] VITALS: BP 124/66
[2016-03-26] MEDS: ACETAMINOPHEN TAB 650MG DOSE (2X325MG) PO PRN ×2 (08:39→19:35)
[2016-03-26] MEDS: ATORVASTATIN 20 MG TAB PO SCH (08:39)
[2016-03-26] MEDS: DOCUSATE SODIUM 100 MG CAP PO SCH ×2 (08:39→19:35)
[2016-03-26] MEDS: PANTOPRAZOLE 40MG TAB (PROTONIX) PO SCH (08:39)
[2016-03-26] MEDS: MULTIVITAMINS/MINERALS THERAP 1 TAB PO SCH (08:39)
[2016-03-26] MEDS: ENOXAPARIN 40 MG/0.4 ML SYRINGE (J1650) SC SCH (08:39)
[2016-03-26] MEDS: GABAPENTIN 300 MG CAP PO SCH ×2 (08:39→19:35)
[2016-03-26] MEDS: risperiDONE 3 MG TAB PO SCH ×2 (14:07→17:35)
[2016-03-26] MEDS: QUEtiapine FUMARATE 25 MG TAB PO SCH (19:35)
[2016-03-27 07:00] VITALS: BP 163/90
[2016-03-27] MEDS: PANTOPRAZOLE 40MG TAB (PROTONIX) PO SCH (09:49)
[2016-03-27] MEDS: GABAPENTIN 300 MG CAP PO SCH ×2 (09:49→19:24)
[2016-03-27] MEDS: ACETAMINOPHEN TAB 650MG DOSE (2X325MG) PO PRN ×2 (09:49→19:25)
[2016-03-27] MEDS: ATORVASTATIN 20 MG TAB PO SCH (09:49)
[2016-03-27] MEDS: DOCUSATE SODIUM 100 MG CAP PO SCH ×2 (09:49→19:24)
[2016-03-27] MEDS: MULTIVITAMINS/MINERALS THERAP 1 TAB PO SCH (09:49)
[2016-03-27] MEDS: ENOXAPARIN 40 MG/0.4 ML SYRINGE (J1650) SC SCH (09:50)
[2016-03-27 10:56] VITALS: BP 107/68
[2016-03-27] MEDS: risperiDONE 3 MG TAB PO SCH ×2 (14:17→17:51)
[2016-03-27] MEDS: QUEtiapine FUMARATE 25 MG TAB PO SCH (19:24)
[2016-03-28 07:00] VITALS: BP 107/70
[2016-03-28] MEDS: DOCUSATE SODIUM 100 MG CAP PO SCH ×2 (08:32→19:56)
[2016-03-28] MEDS: PANTOPRAZOLE 40MG TAB (PROTONIX) PO SCH (08:32)
[2016-03-28] MEDS: ATORVASTATIN 20 MG TAB PO SCH (08:32)
[2016-03-28] MEDS: GABAPENTIN 300 MG CAP PO SCH ×2 (08:32→19:56)
[2016-03-28] MEDS: MULTIVITAMINS/MINERALS THERAP 1 TAB PO SCH (08:33)
[2016-03-28] MEDS: ACETAMINOPHEN TAB 650MG DOSE (2X325MG) PO PRN ×2 (08:33→19:56)
[2016-03-28] MEDS: ENOXAPARIN 40 MG/0.4 ML SYRINGE (J1650) SC SCH (08:33)
[2016-03-28] MEDS: risperiDONE 3 MG TAB PO SCH ×2 (14:06→17:26)
[2016-03-28] MEDS: QUEtiapine FUMARATE 25 MG TAB PO SCH (19:56)
[2016-03-29 06:58] LABS: MEAN CORPUSCULAR HEMOGLOBIN 33.9 pg (27.0-33.0); MEAN CORPUSCULAR HGB CONC 34.9 g/dl (32.0-36.5); RED CELL DISTRIBUTION WIDTH 13.9 % (11.5-14.5); WHITE BLOOD COUNT 5.3 K/mm3 (4.0-10.0)
[2016-03-29 07:00] VITALS: BP 118/76
[2016-03-29 07:07] LABS: ANION GAP 8 MEQ/L (8-16); BLOOD UREA NITROGEN 12 MG/DL (7-18); CALCIUM LEVEL 8.6 MG/DL (8.8-10.2); CARBON DIOXIDE LEVEL 28 MEQ/L (21-32); CHLORIDE LEVEL 111 MEQ/L (98-107); CREATININE FOR GFR 1.05 MG/DL (0.70-1.30); GLOMERULAR FILTRATION RATE > 60.0 (>42); GLUCOSE, FASTING 95 MG/DL (83-110); POTASSIUM SERUM 3.6 MEQ/L (3.5-5.1); SODIUM LEVEL 147 MEQ/L (136-145)
[2016-03-29] MEDS: ATORVASTATIN 20 MG TAB PO SCH (09:00)
[2016-03-29] MEDS: ENOXAPARIN 40 MG/0.4 ML SYRINGE (J1650) SC SCH (09:00)
[2016-03-29] MEDS: MULTIVITAMINS/MINERALS THERAP 1 TAB PO SCH (09:01)
[2016-03-29] MEDS: DOCUSATE SODIUM 100 MG CAP PO SCH ×2 (09:01→19:52)
[2016-03-29] MEDS: PANTOPRAZOLE 40MG TAB (PROTONIX) PO SCH (09:01)
[2016-03-29] MEDS: GABAPENTIN 300 MG CAP PO SCH ×2 (09:01→19:52)
[2016-03-29] MEDS: risperiDONE 3 MG TAB PO SCH ×2 (14:06→17:30)
[2016-03-29] MEDS: HALOPERIDOL 5 MG/ML VIAL (J1630) IM PRN (17:42)
[2016-03-29] MEDS: ACETAMINOPHEN TAB 650MG DOSE (2X325MG) PO PRN (19:52)
[2016-03-29] MEDS: QUEtiapine FUMARATE 25 MG TAB PO SCH (19:52)
[2016-03-30 07:00] VITALS: BP 119/68
[2016-03-30] MEDS: DOCUSATE SODIUM 100 MG CAP PO SCH ×2 (08:50→19:50)
[2016-03-30] MEDS: PANTOPRAZOLE 40MG TAB (PROTONIX) PO SCH (08:50)
[2016-03-30] MEDS: MULTIVITAMINS/MINERALS THERAP 1 TAB PO SCH (08:50)
[2016-03-30] MEDS: ENOXAPARIN 40 MG/0.4 ML SYRINGE (J1650) SC SCH (08:50)
[2016-03-30] MEDS: ATORVASTATIN 20 MG TAB PO SCH (08:50)
[2016-03-30] MEDS: GABAPENTIN 300 MG CAP PO SCH ×2 (08:50→19:50)
[2016-03-30] MEDS: risperiDONE 3 MG TAB PO SCH ×2 (13:48→17:32)
--- NOTE | 2016-03-30 17:49 | IPNPDOC ---
Assessment/Plan Date Seen The patient was seen on 03/30/16. Problems Problems: (1) Dementia with psychosis Status: Acute Response to Treatment: Uncontrolled Problem Text: * Psych last evaluated patient on 03/14. * Due to high risk of cardiac arrhythmia, recommended 5mg Haldol BID was not given. * Haldol was changed to Risperdal. Risperdal at 2pm and 6pm, with haldol and ativan prn * Continue seroquel at bedtime * Increase risperdal by 1mg daily if needed. Close monitoring patient for adverse effects. * Pt has been stable with current regimen. No adjustment is needed at this moment. (2) Dementia Status: Chronic Problem Text: * has a mini mental score of 22, lost points in immediate recall , and short term recall and spelling back duarte. * Does not have insight and has poor judgement at this point. Patient does not have any decisional capacity. * Has episodes of delirium (i.e. thinking his brother is his father) * will continue with Risperdal BID, seroquel qhs, and prn meds * will need canary raiser placement. * Consulted psych and agrees patient need guardianship. * Monitor for agitation overnight * (3) OSMIN (acute kidney injury) Status: Resolved Problem Text: * prerenal from poor intake, resolved with IVF (4) Hyperlipidemia Status: Chronic Problem Text: continue statin (5) Diabetes Status: Chronic Problem Text: a1c is 6.2 will not need meds on discharge. Can be managed with diet control. continue sliding scale insulin. (6) GERD (gastroesophageal reflux disease) Status: Chronic Problem Text: continue PPI (7) Frequent falls Status: Chronic Problem Text: due to generalized muscular deconditioning. PT evaluation. (8) Sinus bradycardia Status: Chronic Problem Text: * Heart rate stable, no bradycardia (9) Vitamin B 12 deficiency Status: Chronic Problem Text: on IM vitamin b 12 weekly. Plan / VTE VTE Prophylaxis Ordered?: Yes (lovenox) Subjective Review of Systems CC/HPI The patient is a 76-year-old male admitted with a reason for visit of Acute Kidney Injury. Events since last encounter Pt is seen and examed in the room. Pt still has significant confusion. He requires constant sitter. Per nursing staff, pt has been behaving since he has been on risperidone 3mg at 2pm and 6pm dosage. There is only once in the last week that he needs ativan to control his mood/confusion. Objective Physical Examination General Exam: Positive: Alert, Cooperative, No Acute Distress Eye Exam: Positive: Conjunctiva & lids normal, EOMI, PERRLA, Negative: Sclera icteric ENT Exam: Positive: Atraumatic, Mucous membr. moist/pink, Pharynx Normal Chest Exam: Positive: Clear to auscultation, Normal air movement Heart Exam: Positive: Normal S1, Normal S2, Rate Normal, Regular Rhythm, Negative: Murmurs, Rubs Abdomen Exam: Positive: Normal bowel sounds, Soft, Negative: Hepatospenomegaly, Tenderness Extremity Exam: Positive: Normal pulses, Negative: Clubbing, Cyanosis, Edema Skin Exam: Positive: Nl turgor and temperature, Negative: Rash Neuro Exam: Positive: Cranial Nerves 3-12 NL, Sensation Intact, Strength at 5/ 5 X4 ext Psych Exam: Positive: Other (episodes of delirium), Negative: Memory Intact Vital Signs/I&O Vital Signs Date Time Temp Pulse Resp B/P Pulse Ox O2 Delivery O2 Flow Rate FiO2 03/30/16 07:00 98.1 62 12 119/68 93 Room Air I&O- Last 24 Hours up to 6 AM 03/30/16 06:00 Intake Total 1760 ml Balance 1760 ml Laboratory Data Labs 24H Laboratory Tests 2 03/30/16 06:54: Bedside Glucose (Misc Panel) 93 03/30/16 16:24: Bedside Glucose (Misc Panel) 191H MAEGAN ESPARZA DO Mar 30, 2016 17:49
[2016-03-30] MEDS: QUEtiapine FUMARATE 25 MG TAB PO SCH (19:50)
[2016-03-31 07:00] VITALS: BP 113/67
[2016-03-31] MEDS: PANTOPRAZOLE 40MG TAB (PROTONIX) PO SCH (08:19)
[2016-03-31] MEDS: DOCUSATE SODIUM 100 MG CAP PO SCH ×2 (08:19→19:43)
[2016-03-31] MEDS: MULTIVITAMINS/MINERALS THERAP 1 TAB PO SCH (08:19)
[2016-03-31] MEDS: GABAPENTIN 300 MG CAP PO SCH ×2 (08:19→19:43)
[2016-03-31] MEDS: ATORVASTATIN 20 MG TAB PO SCH (08:19)
[2016-03-31] MEDS: ACETAMINOPHEN TAB 650MG DOSE (2X325MG) PO PRN (08:20)
[2016-03-31] MEDS: ENOXAPARIN 40 MG/0.4 ML SYRINGE (J1650) SC SCH (08:20)
[2016-03-31] MEDS: risperiDONE 3 MG TAB PO SCH ×2 (14:08→17:24)
[2016-03-31] MEDS: QUEtiapine FUMARATE 25 MG TAB PO SCH (19:43)
[2016-04-01 07:04] LABS: MEAN CORPUSCULAR HEMOGLOBIN 34.1 pg (27.0-33.0); MEAN CORPUSCULAR HGB CONC 34.4 g/dl (32.0-36.5); MEAN CORPUSCULAR VOLUME 99.1 fl (80.0-96.0); RED CELL DISTRIBUTION WIDTH 13.3 % (11.5-14.5); WHITE BLOOD COUNT 4.7 K/mm3 (4.0-10.0)
[2016-04-01 07:16] LABS: ANION GAP 9 MEQ/L (8-16); BLOOD UREA NITROGEN 12 MG/DL (7-18); CALCIUM LEVEL 8.5 MG/DL (8.8-10.2); CARBON DIOXIDE LEVEL 27 MEQ/L (21-32); CHLORIDE LEVEL 111 MEQ/L (98-107); CREATININE FOR GFR 1.09 MG/DL (0.70-1.30); GLOMERULAR FILTRATION RATE > 60.0 (>42); GLUCOSE, FASTING 90 MG/DL (83-110); POTASSIUM SERUM 3.8 MEQ/L (3.5-5.1); SODIUM LEVEL 147 MEQ/L (136-145)
[2016-04-01 08:00] VITALS: BP 133/85
[2016-04-01] MEDS: ENOXAPARIN 40 MG/0.4 ML SYRINGE (J1650) SC SCH (08:30)
[2016-04-01] MEDS: GABAPENTIN 300 MG CAP PO SCH ×2 (08:31→19:34)
[2016-04-01] MEDS: CYANOCOBALAMIN 1,000 MCG/ML VIAL (J3420) IM SCH (08:31)
[2016-04-01] MEDS: ATORVASTATIN 20 MG TAB PO SCH (08:31)
[2016-04-01] MEDS: PANTOPRAZOLE 40MG TAB (PROTONIX) PO SCH (08:31)
[2016-04-01] MEDS: ACETAMINOPHEN TAB 650MG DOSE (2X325MG) PO PRN (08:31)
[2016-04-01] MEDS: MULTIVITAMINS/MINERALS THERAP 1 TAB PO SCH (08:31)
[2016-04-01] MEDS: DOCUSATE SODIUM 100 MG CAP PO SCH ×2 (08:31→19:34)
[2016-04-01] MEDS: risperiDONE 3 MG TAB PO SCH ×2 (14:40→17:27)
[2016-04-01] MEDS: QUEtiapine FUMARATE 25 MG TAB PO SCH (19:34)
[2016-04-02 08:00] VITALS: BP 126/68
[2016-04-02] MEDS: GABAPENTIN 300 MG CAP PO SCH ×2 (09:07→19:43)
[2016-04-02] MEDS: PANTOPRAZOLE 40MG TAB (PROTONIX) PO SCH (09:07)
[2016-04-02] MEDS: MULTIVITAMINS/MINERALS THERAP 1 TAB PO SCH (09:07)
[2016-04-02] MEDS: DOCUSATE SODIUM 100 MG CAP PO SCH (09:07)
[2016-04-02] MEDS: ATORVASTATIN 20 MG TAB PO SCH (09:07)
[2016-04-02] MEDS: ENOXAPARIN 40 MG/0.4 ML SYRINGE (J1650) SC SCH (09:07)
[2016-04-02] MEDS: risperiDONE 3 MG TAB PO SCH ×2 (13:59→17:28)
[2016-04-02] MEDS: QUEtiapine FUMARATE 25 MG TAB PO SCH (19:43)
[2016-04-02] MEDS: DOCUSATE SOD LIQ 100MG/10ML UDC PO SCH (19:43)
[2016-04-03 07:00] VITALS: BP 115/69
[2016-04-03] MEDS: ATORVASTATIN 20 MG TAB PO SCH (08:55)
[2016-04-03] MEDS: MULTIVITAMINS/MINERALS THERAP 1 TAB PO SCH (08:55)
[2016-04-03] MEDS: DOCUSATE SOD LIQ 100MG/10ML UDC PO SCH ×2 (08:55→19:45)
[2016-04-03] MEDS: PANTOPRAZOLE 40MG TAB (PROTONIX) PO SCH (08:55)
[2016-04-03] MEDS: GABAPENTIN 300 MG CAP PO SCH ×2 (08:55→19:45)
[2016-04-03] MEDS: ENOXAPARIN 40 MG/0.4 ML SYRINGE (J1650) SC SCH (08:56)
[2016-04-03] MEDS: risperiDONE 3 MG TAB PO SCH ×2 (14:12→17:31)
[2016-04-03] MEDS: QUEtiapine FUMARATE 25 MG TAB PO SCH (19:45)
[2016-04-04 07:00] VITALS: BP 108/61
[2016-04-04] MEDS: DOCUSATE SOD LIQ 100MG/10ML UDC PO SCH ×2 (09:31→19:50)
[2016-04-04] MEDS: MULTIVITAMINS/MINERALS THERAP 1 TAB PO SCH (09:32)
[2016-04-04] MEDS: PANTOPRAZOLE 40MG TAB (PROTONIX) PO SCH (09:32)
[2016-04-04] MEDS: GABAPENTIN 300 MG CAP PO SCH ×2 (09:32→19:50)
[2016-04-04] MEDS: ATORVASTATIN 20 MG TAB PO SCH (09:32)
[2016-04-04] MEDS: ENOXAPARIN 40 MG/0.4 ML SYRINGE (J1650) SC SCH (09:32)
[2016-04-04] MEDS: risperiDONE 3 MG TAB PO SCH ×2 (14:16→17:14)
[2016-04-04] MEDS: QUEtiapine FUMARATE 25 MG TAB PO SCH (19:50)
[2016-04-05 08:00] VITALS: BP 126/82
[2016-04-05 08:11] LABS: MEAN CORPUSCULAR HEMOGLOBIN 33.6 pg (27.0-33.0); MEAN CORPUSCULAR HGB CONC 33.9 g/dl (32.0-36.5); MEAN CORPUSCULAR VOLUME 99.1 fl (80.0-96.0); RED CELL DISTRIBUTION WIDTH 14.1 % (11.5-14.5)
[2016-04-05 08:24] LABS: ANION GAP 9 MEQ/L (8-16); BLOOD UREA NITROGEN 15 MG/DL (7-18); CALCIUM LEVEL 8.5 MG/DL (8.8-10.2); CARBON DIOXIDE LEVEL 27 MEQ/L (21-32); CHLORIDE LEVEL 110 MEQ/L (98-107); CREATININE FOR GFR 1.21 MG/DL (0.70-1.30); GLOMERULAR FILTRATION RATE > 60.0 (>42); GLUCOSE, FASTING 110 MG/DL (83-110); POTASSIUM SERUM 3.7 MEQ/L (3.5-5.1); SODIUM LEVEL 146 MEQ/L (136-145)
[2016-04-05] MEDS: GABAPENTIN 300 MG CAP PO SCH ×2 (08:35→19:38)
[2016-04-05] MEDS: MULTIVITAMINS/MINERALS THERAP 1 TAB PO SCH (08:35)
[2016-04-05] MEDS: ENOXAPARIN 40 MG/0.4 ML SYRINGE (J1650) SC SCH (08:35)
[2016-04-05] MEDS: ATORVASTATIN 20 MG TAB PO SCH (08:35)
[2016-04-05] MEDS: DOCUSATE SOD LIQ 100MG/10ML UDC PO SCH ×2 (08:35→19:38)
[2016-04-05] MEDS: PANTOPRAZOLE 40MG TAB (PROTONIX) PO SCH (08:35)
[2016-04-05] MEDS: risperiDONE 3 MG TAB PO SCH ×2 (13:58→18:26)
[2016-04-05] MEDS: QUEtiapine FUMARATE 25 MG TAB PO SCH (19:38)
[2016-04-05] MEDS: ACETAMINOPHEN TAB 650MG DOSE (2X325MG) PO PRN (19:39)
[2016-04-06 07:00] VITALS: BP 123/70
[2016-04-06] MEDS: ACETAMINOPHEN TAB 650MG DOSE (2X325MG) PO PRN (09:20)
[2016-04-06] MEDS: GABAPENTIN 300 MG CAP PO SCH ×2 (09:20→19:38)
[2016-04-06] MEDS: PANTOPRAZOLE 40MG TAB (PROTONIX) PO SCH (09:20)
[2016-04-06] MEDS: ENOXAPARIN 40 MG/0.4 ML SYRINGE (J1650) SC SCH (09:20)
[2016-04-06] MEDS: DOCUSATE SOD LIQ 100MG/10ML UDC PO SCH ×2 (09:20→19:37)
[2016-04-06] MEDS: ATORVASTATIN 20 MG TAB PO SCH (09:20)
[2016-04-06] MEDS: MULTIVITAMINS/MINERALS THERAP 1 TAB PO SCH (09:20)
--- NOTE | 2016-04-06 13:20 | IPNPDOC ---
Assessment/Plan Date Seen The patient was seen on 04/06/16. Problems Problems: (1) Dementia with psychosis Status: Acute Response to Treatment: Uncontrolled Problem Text: * Psych last evaluated patient on 03/14. * Due to high risk of cardiac arrhythmia, recommended 5mg Haldol BID was not given. * Haldol was changed to Risperdal. Risperdal at 2pm and 6pm, with haldol and ativan prn * Continue seroquel at bedtime * Increase risperdal by 1mg daily if needed. Close monitoring patient for adverse effects. * Pt has been stable with current regimen. No adjustment is needed at this moment. (2) Dementia Status: Chronic Problem Text: * has a mini mental score of 22, lost points in immediate recall , and short term recall and spelling back duarte. * Does not have insight and has poor judgement at this point. Patient does not have any decisional capacity. * Has episodes of delirium (i.e. thinking his brother is his father) * will continue with Risperdal BID, seroquel qhs, and prn meds * will need fpc placement. * Consulted psych and agrees patient need guardianship. * Monitor for agitation overnight * (3) OSMIN (acute kidney injury) Status: Resolved Problem Text: * prerenal from poor intake, resolved with IVF (4) Hyperlipidemia Status: Chronic Problem Text: continue statin (5) Diabetes Status: Chronic Problem Text: a1c is 6.2 will not need meds on discharge. Can be managed with diet control. continue sliding scale insulin. (6) GERD (gastroesophageal reflux disease) Status: Chronic Problem Text: continue PPI (7) Frequent falls Status: Chronic Problem Text: due to generalized muscular deconditioning. PT evaluation. (8) Sinus bradycardia Status: Chronic Problem Text: * Heart rate stable, no bradycardia (9) Vitamin B 12 deficiency Status: Chronic Problem Text: on IM vitamin b 12 weekly. Plan / VTE VTE Prophylaxis Ordered?: Yes (lovenox) Disposition Pending placement at [facility] Subjective Review of Systems CC/HPI The patient is a 76-year-old male admitted with a reason for visit of Acute Kidney Injury. Events since last encounter No acute events overnight. Patient tolerating PO, Demented, no new complaint. Denied CP, SOB, ABD PAIN, f/c General: Denies: Chills Constitutional: Denies: Chills, Fever Eyes: Denies: Pain, Vision change ENT: Denies: Head Aches Skin: Denies: Jaundice, Rash Pulmonary: Denies: Cough, Dyspnea Cardiovascular: Denies: Chest Pain, Palpitations Gastrointestinal: Denies: Abdominal Pain, Nausea, Vomiting Hematologic: Denies: Bleeding Excessively Objective Physical Examination General Exam: Positive: Alert, Cooperative, No Acute Distress Eye Exam: Positive: Conjunctiva & lids normal, EOMI, PERRLA, Negative: Sclera icteric ENT Exam: Positive: Atraumatic, Mucous membr. moist/pink, Pharynx Normal Chest Exam: Positive: Clear to auscultation, Normal air movement Heart Exam: Positive: Normal S1, Normal S2, Rate Normal, Regular Rhythm, Negative: Murmurs, Rubs Abdomen Exam: Positive: Normal bowel sounds, Soft, Negative: Hepatospenomegaly, Tenderness Extremity Exam: Positive: Normal pulses, Negative: Clubbing, Cyanosis, Edema Skin Exam: Positive: Nl turgor and temperature, Negative: Rash Neuro Exam: Positive: Cranial Nerves 3-12 NL, Sensation Intact, Strength at 5/ 5 X4 ext Psych Exam: Positive: Other (episodes of delirium), Negative: Memory Intact Vital Signs/I&O Vital Signs Date Time Temp Pulse Resp B/P Pulse Ox O2 Delivery O2 Flow Rate FiO2 04/06/16 07:00 97.3 58 14 123/70 92 Room Air I&O- Last 24 Hours up to 6 AM 04/06/16 05:59 Intake Total 1760 ml Balance 1760 ml Laboratory Data Labs 24H Laboratory Tests 2 04/05/16 16:48: Bedside Glucose (Misc Panel) 127H 04/06/16 06:45: Bedside Glucose (Misc Panel) 101 SUMI RODARTE MD Apr 06, 2016 13:20
[2016-04-06 14:00] VITALS: BP 116/71
[2016-04-06] MEDS: risperiDONE 3 MG TAB PO SCH ×2 (14:00→17:37)
[2016-04-06 15:00] LABS: BASO % 0.9 % (0.0-1.0); EOS # 0.2 K/mm3 (0.0-0.50); EOS % 4.1 % (0.0-3.0); LARGE UNSTAINED CELL # 0.2 K/mm3 (0.0-0.4); LARGE UNSTAINED CELL % 2.5 % (0.0-4.0); LYMPH # 1.6 K/mm3 (1.5-4.5); LYMPH % 24.5 % (24.0-44.0); MEAN CORPUSCULAR HEMOGLOBIN 33.8 pg (27.0-33.0); MEAN CORPUSCULAR HGB CONC 34.1 g/dl (32.0-36.5); MEAN CORPUSCULAR VOLUME 99.2 fl (80.0-96.0); MONO # 0.5 K/mm3 (0.0-0.8); MONO % 8.2 % (0.0-5.0); NEUTROPHILS # 3.6 K/mm3 (1.8-7.7); NEUTROPHILS % 59.7 % (36.0-66.0); PLATELET COUNT, AUTOMATED 227 k/mm3 (150-450); RED CELL DISTRIBUTION WIDTH 14.1 % (11.5-14.5); WHITE BLOOD COUNT 6.1 K/mm3 (4.0-10.0)
[2016-04-06 15:06] LABS: INR 1.06
[2016-04-06 15:30] LABS: ALBUMIN 3.1 GM/DL (3.2-5.2); ALBUMIN/GLOBULIN RATIO 1.15 (1.00-1.93); ALKALINE PHOSPHATASE 83 U/L (45-117); ALT/SGPT 27 U/L (12-78); ANION GAP 9 MEQ/L (8-16); AST/SGOT 24 U/L (15-37); BILIRUBIN,TOTAL 0.4 MG/DL (0.2-1.0); BLOOD UREA NITROGEN 16 MG/DL (7-18); CALCIUM LEVEL 8.7 MG/DL (8.8-10.2); CARBON DIOXIDE LEVEL 27 MEQ/L (21-32); CHLORIDE LEVEL 110 MEQ/L (98-107); CREATININE FOR GFR 1.21 MG/DL (0.70-1.30); GLOMERULAR FILTRATION RATE > 60.0 (>42); GLUCOSE, FASTING 109 MG/DL (83-110); MAGNESIUM LEVEL 1.6 MG/DL (1.8-2.4); POTASSIUM SERUM 4.1 MEQ/L (3.5-5.1); SODIUM LEVEL 146 MEQ/L (136-145); TOTAL PROTEIN 5.8 GM/DL (6.4-8.2)
[2016-04-06] MEDS: QUEtiapine FUMARATE 25 MG TAB PO SCH (19:37)
[2016-04-07 07:00] VITALS: BP 136/79
[2016-04-07] MEDS: DOCUSATE SOD LIQ 100MG/10ML UDC PO SCH ×2 (08:51→20:01)
[2016-04-07] MEDS: ENOXAPARIN 40 MG/0.4 ML SYRINGE (J1650) SC SCH (08:51)
[2016-04-07] MEDS: GABAPENTIN 300 MG CAP PO SCH ×2 (08:51→20:01)
[2016-04-07] MEDS: ATORVASTATIN 20 MG TAB PO SCH (08:52)
[2016-04-07] MEDS: MULTIVITAMINS/MINERALS THERAP 1 TAB PO SCH (08:52)
[2016-04-07] MEDS: PANTOPRAZOLE 40MG TAB (PROTONIX) PO SCH (08:52)
[2016-04-07] MEDS: ACETAMINOPHEN TAB 650MG DOSE (2X325MG) PO PRN (08:52)
[2016-04-07] MEDS: risperiDONE 3 MG TAB PO SCH ×2 (14:50→17:49)
[2016-04-07] MEDS: QUEtiapine FUMARATE 25 MG TAB PO SCH (20:01)
[2016-04-08] MEDS ORDERED: LEVOTHYROXINE 0.05 MG TAB (50 MCG) PO SCH (06:00)
[2016-04-08 07:02] LABS: MEAN CORPUSCULAR HEMOGLOBIN 33.7 pg (27.0-33.0); MEAN CORPUSCULAR HGB CONC 34.1 g/dl (32.0-36.5); MEAN CORPUSCULAR VOLUME 98.8 fl (80.0-96.0); RED CELL DISTRIBUTION WIDTH 13.2 % (11.5-14.5); WHITE BLOOD COUNT 6.7 K/mm3 (4.0-10.0)
[2016-04-08 07:18] LABS: ANION GAP 9 MEQ/L (8-16); BLOOD UREA NITROGEN 13 MG/DL (7-18); CALCIUM LEVEL 8.5 MG/DL (8.8-10.2); CARBON DIOXIDE LEVEL 28 MEQ/L (21-32); CHLORIDE LEVEL 108 MEQ/L (98-107); CREATININE FOR GFR 1.21 MG/DL (0.70-1.30); GLOMERULAR FILTRATION RATE > 60.0 (>42); GLUCOSE, FASTING 107 MG/DL (83-110); POTASSIUM SERUM 3.7 MEQ/L (3.5-5.1); SODIUM LEVEL 145 MEQ/L (136-145)
[2016-04-08 07:39] LABS: THYROXINE (T4) 3.7 UG/DL (4.5-12.0)
[2016-04-08 08:00] VITALS: BP 134/78
[2016-04-08] MEDS: DOCUSATE SOD LIQ 100MG/10ML UDC PO SCH ×2 (09:20→19:46)
[2016-04-08] MEDS: CYANOCOBALAMIN 1,000 MCG/ML VIAL (J3420) IM SCH (09:20)
[2016-04-08] MEDS: PANTOPRAZOLE 40MG TAB (PROTONIX) PO SCH (09:20)
[2016-04-08] MEDS: ENOXAPARIN 40 MG/0.4 ML SYRINGE (J1650) SC SCH (09:20)
[2016-04-08] MEDS: ATORVASTATIN 20 MG TAB PO SCH (09:20)
[2016-04-08] MEDS: MULTIVITAMINS/MINERALS THERAP 1 TAB PO SCH (09:20)
[2016-04-08] MEDS: GABAPENTIN 300 MG CAP PO SCH ×2 (09:20→19:46)
--- NOTE | 2016-04-08 10:22 | IPNPDOC ---
Text Note Date of Service The patient was seen on 04/08/16 at 10:20. NOTE Patient has lab came back today shows Mag of 1.7 and TSH 25.5, free t4 1.1, T4 3.7, T3 29. Will start him on synthroid 0.005mg daily and check TSH level in 6 weeks. If patient's symptoms worsens then he might need to be assessed in more acute setting. VS,Fishbone, I+O VS, Fishbone, I+O Laboratory Tests 04/08/16 06:37 Calcium Level 8.5 L, Red Blood Count 3.11 L, Mean Corpuscular Volume 98.8 H, Mean Corpuscular Hemoglobin 33.7 H, Mean Corpuscular Hemoglobin Concent 34.1, Red Cell Distribution Width 13.2 Vital Signs Date Time Temp Pulse Resp B/P Pulse Ox O2 Delivery O2 Flow Rate FiO2 04/08/16 08:00 97.8 92 18 134/78 94 Room Air I&O- Last 24 Hours up to 6 AM 04/08/16 06:00 Intake Total 2100 ml Balance 2100 ml DAVINA JOSHI DO Apr 08, 2016 10:22
[2016-04-08] MEDS ORDERED: MAG SULF 1GM/100ML (MAG RUN) 1 GM in APPROPRIATE DILUENT 1 EA IV ONE (11:00)
[2016-04-08] MEDS: risperiDONE 3 MG TAB PO SCH ×2 (13:35→17:20)
[2016-04-08] MEDS: MAGNESIUM OXIDE 400 MG TAB (MAG-OX) PO SCH (13:35)
[2016-04-08] MEDS: ACETAMINOPHEN TAB 650MG DOSE (2X325MG) PO PRN (17:21)
[2016-04-08] MEDS: QUEtiapine FUMARATE 25 MG TAB PO SCH (19:46)
[2016-04-09] MEDS: LEVOTHYROXINE 0.05 MG TAB (50 MCG) PO SCH (06:41)
[2016-04-09 08:00] VITALS: BP 139/77
[2016-04-09] MEDS: MULTIVITAMINS/MINERALS THERAP 1 TAB PO SCH (08:02)
[2016-04-09] MEDS: ENOXAPARIN 40 MG/0.4 ML SYRINGE (J1650) SC SCH (08:02)
[2016-04-09] MEDS: ATORVASTATIN 20 MG TAB PO SCH (08:02)
[2016-04-09] MEDS: DOCUSATE SOD LIQ 100MG/10ML UDC PO SCH ×2 (08:02→19:39)
[2016-04-09] MEDS: GABAPENTIN 300 MG CAP PO SCH ×2 (08:03→19:39)
[2016-04-09] MEDS: MAGNESIUM OXIDE 400 MG TAB (MAG-OX) PO SCH (08:03)
[2016-04-09] MEDS: PANTOPRAZOLE 40MG TAB (PROTONIX) PO SCH (08:03)
[2016-04-09] MEDS: risperiDONE 3 MG TAB PO SCH ×2 (14:12→17:38)
[2016-04-09] MEDS: QUEtiapine FUMARATE 25 MG TAB PO SCH (19:39)
[2016-04-09] MEDS: ACETAMINOPHEN TAB 650MG DOSE (2X325MG) PO PRN (19:40)
[2016-04-10 00:06] LABS: RISPERIDONE1 12 ng/mL (Not Estab.); RISPERIDONE2 30 ng/mL (Not Estab.); RISPERIDONE3 42 ng/mL (20-60)
[2016-04-10] MEDS: LEVOTHYROXINE 0.05 MG TAB (50 MCG) PO SCH (05:16)
[2016-04-10 07:00] VITALS: BP 132/78
[2016-04-10] MEDS: DOCUSATE SOD LIQ 100MG/10ML UDC PO SCH ×2 (08:48→19:59)
[2016-04-10] MEDS: GABAPENTIN 300 MG CAP PO SCH ×2 (08:48→20:00)
[2016-04-10] MEDS: ATORVASTATIN 20 MG TAB PO SCH (08:48)
[2016-04-10] MEDS: MAGNESIUM OXIDE 400 MG TAB (MAG-OX) PO SCH (08:48)
[2016-04-10] MEDS: PANTOPRAZOLE 40MG TAB (PROTONIX) PO SCH (08:48)
[2016-04-10] MEDS: MULTIVITAMINS/MINERALS THERAP 1 TAB PO SCH (08:48)
[2016-04-10] MEDS: ENOXAPARIN 40 MG/0.4 ML SYRINGE (J1650) SC SCH (08:49)
[2016-04-10] MEDS: risperiDONE 3 MG TAB PO SCH ×2 (13:35→17:40)
[2016-04-10] MEDS: ACETAMINOPHEN TAB 650MG DOSE (2X325MG) PO PRN (20:00)
[2016-04-10] MEDS: RAMELTEON 8 MG TAB (ROZEREM) PO SCH (20:00)
[2016-04-10] MEDS: QUEtiapine FUMARATE 25 MG TAB PO SCH (20:00)
[2016-04-11] MEDS: LEVOTHYROXINE 0.05 MG TAB (50 MCG) PO SCH (05:55)
[2016-04-11 07:00] VITALS: BP 102/64
[2016-04-11] MEDS: DOCUSATE SOD LIQ 100MG/10ML UDC PO SCH ×2 (08:26→19:50)
[2016-04-11] MEDS: ENOXAPARIN 40 MG/0.4 ML SYRINGE (J1650) SC SCH (08:26)
[2016-04-11] MEDS: ATORVASTATIN 20 MG TAB PO SCH (08:26)
[2016-04-11] MEDS: MAGNESIUM OXIDE 400 MG TAB (MAG-OX) PO SCH ×2 (08:27→19:51)
[2016-04-11] MEDS: GABAPENTIN 300 MG CAP PO SCH ×2 (08:27→19:51)
[2016-04-11] MEDS: MULTIVITAMINS/MINERALS THERAP 1 TAB PO SCH (08:27)
[2016-04-11] MEDS: PANTOPRAZOLE 40MG TAB (PROTONIX) PO SCH (08:27)
[2016-04-11] MEDS: risperiDONE 3 MG TAB PO SCH ×2 (14:21→17:38)
[2016-04-11] MEDS: QUEtiapine FUMARATE 25 MG TAB PO SCH (19:50)
[2016-04-11] MEDS: RAMELTEON 8 MG TAB (ROZEREM) PO SCH (19:51)
[2016-04-11] MEDS: HALOPERIDOL 5 MG/ML VIAL (J1630) IM PRN (19:56)
[2016-04-12] MEDS: LEVOTHYROXINE 0.05 MG TAB (50 MCG) PO SCH (05:25)
[2016-04-12 06:41] LABS: MEAN CORPUSCULAR HEMOGLOBIN 33.7 pg (27.0-33.0); MEAN CORPUSCULAR HGB CONC 33.6 g/dl (32.0-36.5); MEAN CORPUSCULAR VOLUME 100.1 fl (80.0-96.0); RED CELL DISTRIBUTION WIDTH 12.9 % (11.5-14.5); WHITE BLOOD COUNT 4.6 K/mm3 (4.0-10.0)
[2016-04-12 06:50] LABS: ANION GAP 8 MEQ/L (8-16); BLOOD UREA NITROGEN 15 MG/DL (7-18); CALCIUM LEVEL 9.1 MG/DL (8.8-10.2); CARBON DIOXIDE LEVEL 29 MEQ/L (21-32); CHLORIDE LEVEL 107 MEQ/L (98-107); CREATININE FOR GFR 1.18 MG/DL (0.70-1.30); GLOMERULAR FILTRATION RATE > 60.0 (>42); GLUCOSE, FASTING 98 MG/DL (83-110); MAGNESIUM LEVEL 1.8 MG/DL (1.8-2.4); POTASSIUM SERUM 3.7 MEQ/L (3.5-5.1); SODIUM LEVEL 144 MEQ/L (136-145)
[2016-04-12] MEDS ORDERED: POTASSIUM CHLORIDE 10 MEQ SR TABLET PO ONE (07:15)
[2016-04-12 08:00] VITALS: BP 119/77
[2016-04-12] MEDS: DOCUSATE SOD LIQ 100MG/10ML UDC PO SCH ×2 (09:33→20:02)
[2016-04-12] MEDS: ENOXAPARIN 40 MG/0.4 ML SYRINGE (J1650) SC SCH (09:33)
[2016-04-12] MEDS: MAGNESIUM OXIDE 400 MG TAB (MAG-OX) PO SCH ×2 (09:34→20:02)
[2016-04-12] MEDS: GABAPENTIN 300 MG CAP PO SCH ×2 (09:34→20:02)
[2016-04-12] MEDS: PANTOPRAZOLE 40MG TAB (PROTONIX) PO SCH (09:34)
[2016-04-12] MEDS: MULTIVITAMINS/MINERALS THERAP 1 TAB PO SCH (09:34)
[2016-04-12] MEDS: ATORVASTATIN 20 MG TAB PO SCH (09:34)
[2016-04-12] MEDS: risperiDONE 3 MG TAB PO SCH ×2 (14:11→17:52)
[2016-04-12] MEDS: ACETAMINOPHEN TAB 650MG DOSE (2X325MG) PO PRN (20:02)
[2016-04-12] MEDS: QUEtiapine FUMARATE 25 MG TAB PO SCH (20:02)
[2016-04-12] MEDS: RAMELTEON 8 MG TAB (ROZEREM) PO SCH (20:02)
[2016-04-13 08:00] VITALS: BP 102/61
[2016-04-13] MEDS: MULTIVITAMINS/MINERALS THERAP 1 TAB PO SCH (08:48)
[2016-04-13] MEDS: ENOXAPARIN 40 MG/0.4 ML SYRINGE (J1650) SC SCH (08:48)
[2016-04-13] MEDS: LEVOTHYROXINE 0.05 MG TAB (50 MCG) PO SCH (08:48)
[2016-04-13] MEDS: ATORVASTATIN 20 MG TAB PO SCH (08:48)
[2016-04-13] MEDS: MAGNESIUM OXIDE 400 MG TAB (MAG-OX) PO SCH ×2 (08:48→19:53)
[2016-04-13] MEDS: GABAPENTIN 300 MG CAP PO SCH ×2 (08:48→19:53)
[2016-04-13] MEDS: PANTOPRAZOLE 40MG TAB (PROTONIX) PO SCH (08:48)
[2016-04-13] MEDS: DOCUSATE SOD LIQ 100MG/10ML UDC PO SCH ×2 (08:49→19:53)
[2016-04-13] MEDS: risperiDONE 3 MG TAB PO SCH ×2 (14:26→17:38)
--- NOTE | 2016-04-13 14:36 | REP ---
Chest two views HISTORY: Cough Comparison: 02/12/2016 There is elevation of the left hemidiaphragm. The lungs are clear. The heart is normal in size. The pulmonary vasculature is normal in appearance. The bony structure is intact. IMPRESSION: No acute disease. Signed by Jimmie Banks MD 04/13/2016 08:57 A
--- NOTE | 2016-04-13 16:17 | IPN ---
DATE: 04/13/2016 Patient seen and examined. No acute events overnight. Patient demented and confused. Alert and oriented times one. Denies any chest pain, pressure, or discomfort. Denies any shortness of breath. VITAL SIGNS: Temperature 97.5, pulse 56, respirations 20, blood pressure 102/61, pulse oximetry 91% on room air. LABORATORY DATA: WBC 4.6, hemoglobin and hematocrit 11.4/33.8, platelets 242. Chemistry: Sodium 144, potassium 3.7, chloride 107, bicarbonate 29, BUN 15, creatinine 1.18. Chest xray within normal limits. PHYSICAL EXAMINATION: GENERAL: Patient comfortable, in no acute distress. HEENT: Normocephalic, atraumatic. PULMONARY: Bilaterally clear to auscultation. CARDIAC: Regular rate and rhythm, normal S1, S2. ABDOMEN: Soft, nontender. Positive bowel sounds. EXTREMITIES: No edema bilateral lower extremities. ASSESSMENT AND PLAN: This is a 76-year-old male patient with underlying medical history of type 2 diabetes, hypertension, dyslipidemia, dementia, osteoarthritis, recent fall, alcohol use, diverticulosis, Schatzki ring, initially admitted with altered mental status and confusion, PROBLEMS: 1. Altered mental status and confusion secondary to worsening dementia and psychosis. Psychiatry consulted. Continue current medication. Patient on Risperdal, Seroquel, one-to-one sitter. 2. Dementia. Patient has a mini-mental status score of 22. Does not have insight and has poor judgment at this point. Does not have any decision making capacity with episodes of delirium, thinking that his brother is his father. Continue Risperdal twice a day and Seroquel every evening with as needed medication. Will need long-term placement. Appreciate psychiatry's assistance. Patient needs guardianship. Monitor for agitation overnight. 3. Acute kidney injury (OSMIN), resolved. 4. Dyslipidemia. Continue statin. 5. Diabetes. Diet controlled. Insulin as per protocol. 6. Gastroesophageal reflux disease (GERD). Continue proton pump inhibitor (PPI). 7. Frequent falls. Supportive care. Physical therapy. 8. Sinus bradycardia. Heart rate is currently stable. 9. Vitamin B12 deficiency. Supplementation. 10. Deep venous thrombosis (DVT) prophylaxis. Lovenox subcutaneous. DISPOSITION: Pending placement.
[2016-04-13] MEDS: RAMELTEON 8 MG TAB (ROZEREM) PO SCH (19:53)
[2016-04-13] MEDS: QUEtiapine FUMARATE 25 MG TAB PO SCH (19:53)
[2016-04-14] MEDS: LEVOTHYROXINE 0.05 MG TAB (50 MCG) PO SCH (06:50)
[2016-04-14 07:00] VITALS: BP 107/75
[2016-04-14] MEDS: ACETAMINOPHEN TAB 650MG DOSE (2X325MG) PO PRN (09:31)
[2016-04-14] MEDS: PANTOPRAZOLE 40MG TAB (PROTONIX) PO SCH (09:31)
[2016-04-14] MEDS: MULTIVITAMINS/MINERALS THERAP 1 TAB PO SCH (09:31)
[2016-04-14] MEDS: MAGNESIUM OXIDE 400 MG TAB (MAG-OX) PO SCH ×2 (09:31→19:31)
[2016-04-14] MEDS: ATORVASTATIN 20 MG TAB PO SCH (09:31)
[2016-04-14] MEDS: DOCUSATE SOD LIQ 100MG/10ML UDC PO SCH ×2 (09:31→19:31)
[2016-04-14] MEDS: GABAPENTIN 300 MG CAP PO SCH ×2 (09:31→19:31)
[2016-04-14] MEDS: ENOXAPARIN 40 MG/0.4 ML SYRINGE (J1650) SC SCH (09:31)
[2016-04-14] MEDS: risperiDONE 3 MG TAB PO SCH ×2 (14:04→17:27)
[2016-04-14] MEDS: QUEtiapine FUMARATE 25 MG TAB PO SCH (19:31)
[2016-04-14] MEDS: RAMELTEON 8 MG TAB (ROZEREM) PO SCH (19:31)
[2016-04-15] MEDS: LEVOTHYROXINE 0.05 MG TAB (50 MCG) PO SCH (06:41)
[2016-04-15 06:56] LABS: MEAN CORPUSCULAR HEMOGLOBIN 33.9 pg (27.0-33.0); MEAN CORPUSCULAR HGB CONC 34.4 g/dl (32.0-36.5); MEAN CORPUSCULAR VOLUME 98.6 fl (80.0-96.0); RED CELL DISTRIBUTION WIDTH 12.7 % (11.5-14.5); WHITE BLOOD COUNT 5.7 K/mm3 (4.0-10.0)
[2016-04-15 07:00] VITALS: BP 116/68
[2016-04-15 07:26] LABS: ANION GAP 9 MEQ/L (8-16); BLOOD UREA NITROGEN 18 MG/DL (7-18); CALCIUM LEVEL 8.8 MG/DL (8.8-10.2); CARBON DIOXIDE LEVEL 29 MEQ/L (21-32); CHLORIDE LEVEL 106 MEQ/L (98-107); CREATININE FOR GFR 1.23 MG/DL (0.70-1.30); GLOMERULAR FILTRATION RATE > 60.0 (>42); GLUCOSE, FASTING 92 MG/DL (83-110); MAGNESIUM LEVEL 1.7 MG/DL (1.8-2.4); POTASSIUM SERUM 3.9 MEQ/L (3.5-5.1); SODIUM LEVEL 144 MEQ/L (136-145)
[2016-04-15] MEDS: MULTIVITAMINS/MINERALS THERAP 1 TAB PO SCH (08:45)
[2016-04-15] MEDS: GABAPENTIN 300 MG CAP PO SCH ×2 (08:45→19:49)
[2016-04-15] MEDS: ENOXAPARIN 40 MG/0.4 ML SYRINGE (J1650) SC SCH (08:45)
[2016-04-15] MEDS: MAGNESIUM OXIDE 400 MG TAB (MAG-OX) PO SCH ×3 (08:45→19:49)
[2016-04-15] MEDS: ATORVASTATIN 20 MG TAB PO SCH (08:45)
[2016-04-15] MEDS: PANTOPRAZOLE 40MG TAB (PROTONIX) PO SCH (08:45)
[2016-04-15] MEDS: DOCUSATE SOD LIQ 100MG/10ML UDC PO SCH ×2 (08:45→19:49)
[2016-04-15] MEDS: CYANOCOBALAMIN 1,000 MCG/ML VIAL (J3420) IM SCH (08:45)
[2016-04-15] MEDS: ACETAMINOPHEN TAB 650MG DOSE (2X325MG) PO PRN (08:46)
[2016-04-15] MEDS: risperiDONE 3 MG TAB PO SCH ×2 (14:22→18:10)
[2016-04-15] MEDS: RAMELTEON 8 MG TAB (ROZEREM) PO SCH (19:49)
[2016-04-15] MEDS: QUEtiapine FUMARATE 25 MG TAB PO SCH (19:50)
[2016-04-16] MEDS: LEVOTHYROXINE 0.05 MG TAB (50 MCG) PO SCH (06:45)
[2016-04-16 08:00] VITALS: BP 111/65
[2016-04-16] MEDS: MULTIVITAMINS/MINERALS THERAP 1 TAB PO SCH (08:50)
[2016-04-16] MEDS: ENOXAPARIN 40 MG/0.4 ML SYRINGE (J1650) SC SCH (08:51)
[2016-04-16] MEDS: DOCUSATE SOD LIQ 100MG/10ML UDC PO SCH ×2 (08:52→19:32)
[2016-04-16] MEDS: MAGNESIUM OXIDE 400 MG TAB (MAG-OX) PO SCH ×3 (08:54→19:32)
[2016-04-16] MEDS: ATORVASTATIN 20 MG TAB PO SCH (08:54)
[2016-04-16] MEDS: GABAPENTIN 300 MG CAP PO SCH ×2 (08:54→19:32)
[2016-04-16] MEDS: PANTOPRAZOLE 40MG TAB (PROTONIX) PO SCH (08:54)
[2016-04-16] MEDS: risperiDONE 3 MG TAB PO SCH ×2 (13:22→17:34)
[2016-04-16] MEDS: ACETAMINOPHEN TAB 650MG DOSE (2X325MG) PO PRN (18:15)
[2016-04-16] MEDS: QUEtiapine FUMARATE 25 MG TAB PO SCH (19:32)
[2016-04-16] MEDS: RAMELTEON 8 MG TAB (ROZEREM) PO SCH (19:32)
[2016-04-17] MEDS: LEVOTHYROXINE 0.05 MG TAB (50 MCG) PO SCH (06:22)
[2016-04-17 08:00] VITALS: BP 120/69
[2016-04-17] MEDS: DOCUSATE SOD LIQ 100MG/10ML UDC PO SCH ×2 (09:59→19:42)
[2016-04-17] MEDS: PANTOPRAZOLE 40MG TAB (PROTONIX) PO SCH (09:59)
[2016-04-17] MEDS: MAGNESIUM OXIDE 400 MG TAB (MAG-OX) PO SCH ×3 (09:59→19:42)
[2016-04-17] MEDS: GABAPENTIN 300 MG CAP PO SCH ×2 (09:59→19:42)
[2016-04-17] MEDS: MULTIVITAMINS/MINERALS THERAP 1 TAB PO SCH (09:59)
[2016-04-17] MEDS: ATORVASTATIN 20 MG TAB PO SCH (09:59)
[2016-04-17] MEDS: ENOXAPARIN 40 MG/0.4 ML SYRINGE (J1650) SC SCH (10:01)
[2016-04-17] MEDS: risperiDONE 3 MG TAB PO SCH ×2 (13:40→17:09)
[2016-04-17] MEDS: QUEtiapine FUMARATE 25 MG TAB PO SCH (19:42)
[2016-04-17] MEDS: RAMELTEON 8 MG TAB (ROZEREM) PO SCH (19:42)
--- NOTE | 2016-04-18 00:38 | IPN ---
DATE OF SERVICE: 04/17/2016 Patient seen and examined. No acute events overnight. Denies any chest pain, pressure, or discomfort. Alert and oriented times one. VITAL SIGNS: Temperature 95.7, pulse 67, respirations 18, blood pressure 120/69, pulse oximetry 95% on room air. LABORATORY DATA: Last lab tests: WBC 5.7, hemoglobin and hematocrit 10.3/30, platelets 216. Chemistry: Sodium 144, potassium 3.9, chloride 106, bicarbonate 29, BUN 18, creatinine 1.23. Magnesium 1.7. PHYSICAL EXAMINATION: GENERAL: Patient comfortable, in no acute distress. HEENT: Normocephalic, atraumatic. PULMONARY: Bilaterally clear. CARDIAC: Regular rate and rhythm, normal S1, S2. ABDOMEN: Soft, nontender. Positive bowel sounds. EXTREMITIES: No edema. ASSESSMENT AND PLAN: This is a 76-year-old patient with underlying medical history of type 2 diabetes, hypertension, dyslipidemia, dementia, osteoarthritis, recent fall, alcohol use, diverticulosis, Schatzki ring, initially admitted for altered mental status and confusion. 1. Altered mental status and confusion likely secondary to dementia and psychosis. Psychiatry consulted. Continue current medication. Patient on Risperdal, Seroquel, one-to-one sitter. Will need guardian and also placement. 2. Dementia. Patient with a mini-mental status score of 22. Does not have insight and has poor judgment at this point. Does not have any decision making capacity with episodes of delirium, thinking that his brother is his father. Continue Risperdal twice a day and Seroquel every evening with as needed medication as well. Patient will need long-term placement and guardian. Psychiatry consultation appreciated. One-to-one sitter for now. 3. Acute kidney injury, resolved. 4. Dyslipidemia. Continue statin. 5. Diabetes. Diet controlled. Insulin as per protocol. 6. Gastroesophageal reflux disease (GERD). Continue proton pump inhibitor (PPI). 7. Frequent falls. Supportive care. Physical therapy. 8. Sinus bradycardia. Continue current medications. 9. History of QTc. EKGs were followed every time psychiatric medication adjusted. 10. Vitamin B12 deficiency. Supplementation. 11. Deep venous thrombosis (DVT) prophylaxis. Lovenox subcutaneous. DISPOSITION PLANNING: Pending placement.
[2016-04-18] MEDS: LEVOTHYROXINE 0.05 MG TAB (50 MCG) PO SCH (06:22)
[2016-04-18 08:00] VITALS: BP 107/73
[2016-04-18] MEDS: PANTOPRAZOLE 40MG TAB (PROTONIX) PO SCH (08:55)
[2016-04-18] MEDS: ATORVASTATIN 20 MG TAB PO SCH (08:55)
[2016-04-18] MEDS: MULTIVITAMINS/MINERALS THERAP 1 TAB PO SCH (08:55)
[2016-04-18] MEDS: GABAPENTIN 300 MG CAP PO SCH ×2 (08:55→19:51)
[2016-04-18] MEDS: DOCUSATE SOD LIQ 100MG/10ML UDC PO SCH ×2 (08:55→19:51)
[2016-04-18] MEDS: ENOXAPARIN 40 MG/0.4 ML SYRINGE (J1650) SC SCH (08:55)
[2016-04-18] MEDS: risperiDONE 3 MG TAB PO SCH ×2 (14:11→17:33)
[2016-04-18] MEDS: QUEtiapine FUMARATE 25 MG TAB PO SCH (19:51)
[2016-04-18] MEDS: RAMELTEON 8 MG TAB (ROZEREM) PO SCH (19:51)
[2016-04-18] MEDS: MAGNESIUM OXIDE 400 MG TAB (MAG-OX) PO SCH (21:17)
[2016-04-19] MEDS: LEVOTHYROXINE 0.05 MG TAB (50 MCG) PO SCH (06:03)
[2016-04-19 06:51] LABS: MEAN CORPUSCULAR HEMOGLOBIN 33.8 pg (27.0-33.0); MEAN CORPUSCULAR HGB CONC 34.8 g/dl (32.0-36.5); MEAN CORPUSCULAR VOLUME 97.2 fl (80.0-96.0); RED CELL DISTRIBUTION WIDTH 12.7 % (11.5-14.5); WHITE BLOOD COUNT 4.4 K/mm3 (4.0-10.0)
[2016-04-19 07:14] LABS: ANION GAP 10 MEQ/L (8-16); BLOOD UREA NITROGEN 16 MG/DL (7-18); CARBON DIOXIDE LEVEL 28 MEQ/L (21-32); CHLORIDE LEVEL 108 MEQ/L (98-107); CREATININE FOR GFR 1.16 MG/DL (0.70-1.30); GLOMERULAR FILTRATION RATE > 60.0 (>42); GLUCOSE, FASTING 96 MG/DL (83-110); POTASSIUM SERUM 3.9 MEQ/L (3.5-5.1); SODIUM LEVEL 146 MEQ/L (136-145)
[2016-04-19 08:00] VITALS: BP 100/79
[2016-04-19] MEDS: DOCUSATE SOD LIQ 100MG/10ML UDC PO SCH ×2 (09:04→20:21)
[2016-04-19] MEDS: PANTOPRAZOLE 40MG TAB (PROTONIX) PO SCH (09:04)
[2016-04-19] MEDS: MULTIVITAMINS/MINERALS THERAP 1 TAB PO SCH (09:04)
[2016-04-19] MEDS: ENOXAPARIN 40 MG/0.4 ML SYRINGE (J1650) SC SCH (09:05)
[2016-04-19] MEDS: GABAPENTIN 300 MG CAP PO SCH ×2 (09:05→20:22)
[2016-04-19] MEDS: MAGNESIUM OXIDE 400 MG TAB (MAG-OX) PO SCH ×2 (09:05→20:22)
[2016-04-19] MEDS: ATORVASTATIN 20 MG TAB PO SCH (09:05)
[2016-04-19] MEDS: ACETAMINOPHEN TAB 650MG DOSE (2X325MG) PO PRN (09:05)
[2016-04-19] MEDS: risperiDONE 3 MG TAB PO SCH ×2 (14:42→17:49)
[2016-04-19] MEDS: RAMELTEON 8 MG TAB (ROZEREM) PO SCH (20:22)
[2016-04-19] MEDS: QUEtiapine FUMARATE 25 MG TAB PO SCH (20:22)
[2016-04-20] MEDS: LEVOTHYROXINE 0.05 MG TAB (50 MCG) PO SCH (06:21)
[2016-04-20 07:00] VITALS: BP 103/64
[2016-04-20] MEDS: ENOXAPARIN 40 MG/0.4 ML SYRINGE (J1650) SC SCH (08:44)
[2016-04-20] MEDS: PANTOPRAZOLE 40MG TAB (PROTONIX) PO SCH (08:44)
[2016-04-20] MEDS: DOCUSATE SOD LIQ 100MG/10ML UDC PO SCH ×2 (08:44→19:44)
[2016-04-20] MEDS: GABAPENTIN 300 MG CAP PO SCH ×2 (08:45→19:45)
[2016-04-20] MEDS: ATORVASTATIN 20 MG TAB PO SCH (08:45)
[2016-04-20] MEDS: MAGNESIUM OXIDE 400 MG TAB (MAG-OX) PO SCH ×2 (08:45→19:45)
[2016-04-20] MEDS: ACETAMINOPHEN TAB 650MG DOSE (2X325MG) PO PRN (08:46)
[2016-04-20] MEDS: MULTIVITAMINS/MINERALS THERAP 1 TAB PO SCH (08:46)
[2016-04-20] MEDS: risperiDONE 3 MG TAB PO SCH ×2 (14:19→17:12)
[2016-04-20] MEDS: QUEtiapine FUMARATE 25 MG TAB PO SCH (19:44)
[2016-04-20] MEDS: RAMELTEON 8 MG TAB (ROZEREM) PO SCH (19:45)
[2016-04-21] MEDS: LEVOTHYROXINE 0.05 MG TAB (50 MCG) PO SCH (06:23)
[2016-04-21] MEDS: MULTIVITAMINS/MINERALS THERAP 1 TAB PO SCH (08:13)
[2016-04-21] MEDS: GABAPENTIN 300 MG CAP PO SCH ×2 (08:13→20:45)
[2016-04-21] MEDS: ENOXAPARIN 40 MG/0.4 ML SYRINGE (J1650) SC SCH (08:13)
[2016-04-21] MEDS: ATORVASTATIN 20 MG TAB PO SCH (08:13)
[2016-04-21] MEDS: DOCUSATE SOD LIQ 100MG/10ML UDC PO SCH ×2 (08:13→20:45)
[2016-04-21] MEDS: ACETAMINOPHEN TAB 650MG DOSE (2X325MG) PO PRN (08:14)
[2016-04-21] MEDS: MAGNESIUM OXIDE 400 MG TAB (MAG-OX) PO SCH ×2 (08:14→20:45)
[2016-04-21] MEDS: PANTOPRAZOLE 40MG TAB (PROTONIX) PO SCH (08:14)
[2016-04-21 08:32] VITALS: BP 115/76
[2016-04-21] MEDS: risperiDONE 3 MG TAB PO SCH ×2 (14:30→18:11)
[2016-04-21] MEDS: QUEtiapine FUMARATE 25 MG TAB PO SCH (20:45)
[2016-04-21] MEDS: RAMELTEON 8 MG TAB (ROZEREM) PO SCH (20:45)
[2016-04-22] MEDS: LEVOTHYROXINE 0.05 MG TAB (50 MCG) PO SCH (06:08)
[2016-04-22 07:09] LABS: MEAN CORPUSCULAR HEMOGLOBIN 34.2 pg (27.0-33.0); MEAN CORPUSCULAR HGB CONC 35.3 g/dl (32.0-36.5); MEAN CORPUSCULAR VOLUME 96.9 fl (80.0-96.0); RED CELL DISTRIBUTION WIDTH 12.6 % (11.5-14.5); WHITE BLOOD COUNT 4.8 K/mm3 (4.0-10.0)
[2016-04-22 07:32] LABS: CALCIUM LEVEL 8.6 MG/DL (8.8-10.2); CREATININE FOR GFR 1.3 MG/DL (0.70-1.30); GLOMERULAR FILTRATION RATE 57.4 (>42); MAGNESIUM LEVEL 1.8 MG/DL (1.8-2.4); POTASSIUM SERUM 3.8 MEQ/L (3.5-5.1)
[2016-04-22 08:00] VITALS: BP 110/67
[2016-04-22] MEDS: DOCUSATE SOD LIQ 100MG/10ML UDC PO SCH ×2 (08:46→20:30)
[2016-04-22] MEDS: CYANOCOBALAMIN 1,000 MCG/ML VIAL (J3420) IM SCH (08:46)
[2016-04-22] MEDS: ENOXAPARIN 40 MG/0.4 ML SYRINGE (J1650) SC SCH (08:47)
[2016-04-22] MEDS: GABAPENTIN 300 MG CAP PO SCH ×2 (08:47→20:30)
[2016-04-22] MEDS: MAGNESIUM OXIDE 400 MG TAB (MAG-OX) PO SCH ×2 (08:47→20:30)
[2016-04-22] MEDS: ATORVASTATIN 20 MG TAB PO SCH (08:47)
[2016-04-22] MEDS: MULTIVITAMINS/MINERALS THERAP 1 TAB PO SCH (08:47)
[2016-04-22] MEDS: PANTOPRAZOLE 40MG TAB (PROTONIX) PO SCH (08:47)
[2016-04-22] MEDS: risperiDONE 3 MG TAB PO SCH ×2 (15:03→18:36)
[2016-04-22] MEDS: RAMELTEON 8 MG TAB (ROZEREM) PO SCH (20:30)
[2016-04-22] MEDS: QUEtiapine FUMARATE 25 MG TAB PO SCH (20:30)
[2016-04-23] MEDS: LEVOTHYROXINE 0.05 MG TAB (50 MCG) PO SCH (06:13)
[2016-04-23] MEDS: PANTOPRAZOLE 40MG TAB (PROTONIX) PO SCH (08:36)
[2016-04-23] MEDS: MAGNESIUM OXIDE 400 MG TAB (MAG-OX) PO SCH ×2 (08:36→20:32)
[2016-04-23] MEDS: MULTIVITAMINS/MINERALS THERAP 1 TAB PO SCH (08:36)
[2016-04-23] MEDS: ATORVASTATIN 20 MG TAB PO SCH (08:36)
[2016-04-23] MEDS: ENOXAPARIN 40 MG/0.4 ML SYRINGE (J1650) SC SCH (08:36)
[2016-04-23] MEDS: GABAPENTIN 300 MG CAP PO SCH ×2 (08:36→20:32)
[2016-04-23] MEDS: DOCUSATE SOD LIQ 100MG/10ML UDC PO SCH ×2 (08:36→20:32)
[2016-04-23] MEDS: ACETAMINOPHEN TAB 650MG DOSE (2X325MG) PO PRN (08:36)
[2016-04-23 08:40] VITALS: BP 108/64
--- NOTE | 2016-04-23 13:03 | IPN ---
DATE: 04/23/2016 SUBJECTIVE: Today, the patient has no complaints. He feels well. He is oriented to person. He knows he is in a nursing care facility outside of [place], but he could tell me that he was in [place] or [facility]. He does know the year but not the month or day of the week. OBJECTIVE: Vital signs: Temperature 97.1, pulse 65, respiratory rate 18, blood pressure (BP) 108/64, oxygen saturation 94% on room air. General: He is a very pleasant, elderly, man, laying flat in bed, watching television. He is in no acute distress. He is resting comfortably. HEENT: Cranial nerves II-XII are grossly intact. He has moist mucous membranes. No elevation of central venous pressure (CVP). Cardiovascular exam: S1, S2, regular. Respiratory exam is clear. Abdominal exam is benign. Extremities: No clubbing, cyanosis or edema. LABORATORY STUDIES: From yesterday: WBC 4.8, hemoglobin 10.3, hematocrit 29.2, platelet count 196. Chemistry panel: Sodium 143, potassium 3.8, chloride 107, bicarbonate 27, BUN 21, creatinine 1.3, magnesium 1.8. No new microbiology or imaging. ASSESSMENT AND PLAN: This is a 76-year-old man with underlying dementia admitted for poor mentation and inability to care for himself at home. PROBLEM S: 1. Dementia. The patient reportedly had a mini mental status score of 22. He does not have insight. He has poor judgment. He does not have decision making capacity. He is continued on Risperdal, Seroquel, one-to-one sitter as needed. There is currently undertaking guardianship for potential placement for him. He is also on Rozerem, Haldol as needed. 2. Acute kidney injury, resolved. 3. Dyslipidemia. The patient is on a statin, although the utility of this given his advanced age and dementia is questionable. 4. Gastroesophageal reflux disease. The patient is on Protonix. 5. Frequent falls. The patient is working with physical therapy, requiring correction placement. 6. History of prolonged QTc. Should of any of his psychiatric medications need adjusting, would recommend rechecking EKGs to evaluate their effect on the QTc. 7. Vitamin D deficiency. He is on supplementation. 8. Deep venous thrombosis (DVT) prophylaxis. He is on Lovenox. DISPOSITION: The patient is currently awaiting guardianship and placement.
[2016-04-23] MEDS: risperiDONE 3 MG TAB PO SCH ×2 (14:32→17:17)
[2016-04-23] MEDS: QUEtiapine FUMARATE 25 MG TAB PO SCH (20:32)
[2016-04-23] MEDS: RAMELTEON 8 MG TAB (ROZEREM) PO SCH (20:32)
[2016-04-24] MEDS: LEVOTHYROXINE 0.05 MG TAB (50 MCG) PO SCH (05:25)
[2016-04-24 07:00] VITALS: BP 115/72
[2016-04-24] MEDS: MULTIVITAMINS/MINERALS THERAP 1 TAB PO SCH (08:04)
[2016-04-24] MEDS: PANTOPRAZOLE 40MG TAB (PROTONIX) PO SCH (08:04)
[2016-04-24] MEDS: GABAPENTIN 300 MG CAP PO SCH ×2 (08:04→19:28)
[2016-04-24] MEDS: MAGNESIUM OXIDE 400 MG TAB (MAG-OX) PO SCH ×2 (08:04→19:28)
[2016-04-24] MEDS: ACETAMINOPHEN TAB 650MG DOSE (2X325MG) PO PRN ×2 (08:05→19:29)
[2016-04-24] MEDS: ATORVASTATIN 20 MG TAB PO SCH (08:05)
[2016-04-24] MEDS: DOCUSATE SOD LIQ 100MG/10ML UDC PO SCH ×2 (08:05→19:27)
[2016-04-24] MEDS: ENOXAPARIN 40 MG/0.4 ML SYRINGE (J1650) SC SCH (08:06)
[2016-04-24] MEDS: risperiDONE 3 MG TAB PO SCH ×2 (14:01→17:40)
[2016-04-24] MEDS: RAMELTEON 8 MG TAB (ROZEREM) PO SCH (19:28)
[2016-04-24] MEDS: QUEtiapine FUMARATE 25 MG TAB PO SCH (19:28)
[2016-04-25] MEDS: LEVOTHYROXINE 0.05 MG TAB (50 MCG) PO SCH (05:28)
[2016-04-25 07:00] VITALS: BP 105/70
[2016-04-25] MEDS: GABAPENTIN 300 MG CAP PO SCH ×2 (08:26→19:52)
[2016-04-25] MEDS: DOCUSATE SOD LIQ 100MG/10ML UDC PO SCH ×2 (08:26→19:51)
[2016-04-25] MEDS: ATORVASTATIN 20 MG TAB PO SCH (08:26)
[2016-04-25] MEDS: MULTIVITAMINS/MINERALS THERAP 1 TAB PO SCH (08:26)
[2016-04-25] MEDS: PANTOPRAZOLE 40MG TAB (PROTONIX) PO SCH (08:27)
[2016-04-25] MEDS: ACETAMINOPHEN TAB 650MG DOSE (2X325MG) PO PRN ×2 (08:27→19:52)
[2016-04-25] MEDS: MAGNESIUM OXIDE 400 MG TAB (MAG-OX) PO SCH ×2 (08:27→19:51)
[2016-04-25] MEDS: ENOXAPARIN 40 MG/0.4 ML SYRINGE (J1650) SC SCH (08:27)
[2016-04-25] MEDS: risperiDONE 3 MG TAB PO SCH ×2 (14:57→17:48)
[2016-04-25] MEDS: QUEtiapine FUMARATE 25 MG TAB PO SCH (19:52)
[2016-04-25] MEDS: RAMELTEON 8 MG TAB (ROZEREM) PO SCH (19:52)
[2016-04-26] MEDS: LEVOTHYROXINE 0.05 MG TAB (50 MCG) PO SCH (05:36)
[2016-04-26 06:33] LABS: MEAN CORPUSCULAR HEMOGLOBIN 34.5 pg (27.0-33.0); MEAN CORPUSCULAR HGB CONC 35.4 g/dl (32.0-36.5); MEAN CORPUSCULAR VOLUME 97.5 fl (80.0-96.0); RED CELL DISTRIBUTION WIDTH 12.6 % (11.5-14.5); WHITE BLOOD COUNT 4.6 K/mm3 (4.0-10.0)
[2016-04-26 06:48] LABS: CALCIUM LEVEL 8.9 MG/DL (8.8-10.2); CREATININE FOR GFR 1.28 MG/DL (0.70-1.30); GLOMERULAR FILTRATION RATE 58.5 (>42); MAGNESIUM LEVEL 1.7 MG/DL (1.8-2.4); POTASSIUM SERUM 3.8 MEQ/L (3.5-5.1)
[2016-04-26 07:00] VITALS: BP 112/74
[2016-04-26] MEDS: DOCUSATE SOD LIQ 100MG/10ML UDC PO SCH (08:45)
[2016-04-26] MEDS: ATORVASTATIN 20 MG TAB PO SCH (08:46)
[2016-04-26] MEDS: MULTIVITAMINS/MINERALS THERAP 1 TAB PO SCH (08:46)
[2016-04-26] MEDS: MAGNESIUM OXIDE 400 MG TAB (MAG-OX) PO SCH (08:46)
[2016-04-26] MEDS: PANTOPRAZOLE 40MG TAB (PROTONIX) PO SCH (08:46)
[2016-04-26] MEDS: ENOXAPARIN 40 MG/0.4 ML SYRINGE (J1650) SC SCH (08:46)
[2016-04-26] MEDS: GABAPENTIN 300 MG CAP PO SCH (08:46)
[2016-04-26] MEDS ORDERED: LEVO50TA5 PO (12:26)
[2016-04-26] MEDS ORDERED: MAG400TA PO (12:26)
[2016-04-26] MEDS ORDERED: QUET1TAB7 PO (12:26)
[2016-04-26] MEDS ORDERED: MAPA325T2 PO (12:26)
[2016-04-26] MEDS ORDERED: ROZE8TAB9 PO (12:26)
[2016-04-26] MEDS ORDERED: VITMTA PO (12:26)
[2016-04-26] MEDS ORDERED: GABA300C3 PO (12:26)
[2016-04-26] MEDS ORDERED: RISP3TAB18 PO (12:26)
--- NOTE | 2016-04-26 19:04 | DSES ---
DATE OF ADMISSION: 02/12/2016 DATE OF DISCHARGE: 04/26/2016 DISCHARGE DIAGNOSIS: Dementia. SECONDARY DIAGNOSES: 1. Acute kidney injury. 2. Dyslipidemia. 3. Gastroesophageal reflux disease. 4. Prolonged QTc. 5. Vitamin D deficiency. CONSULTATIONS: Dr. Spenser Fisher, psychiatry. HOSPITAL COURSE: The patient was admitted on 02/12/2016. At that time, the patient was admitted for confusion and falls. It was felt to be secondary to Alzheimer's-type dementia. He was dehydrated with acute kidney injury. The patient was seen by psychiatry. He performed poorly on the Mini-Mental Status Examination and it was felt to be that his symptoms were all related to advanced dementia. His acute kidney injury did resolve with IV fluids. He remained in the hospital becoming alternate level of care status on 02/20/2016, where he remained without any significant changes in his clinical status. He was seen by psychiatry who helped adjust medications for agitation. It was somewhat difficult secondary to a prolonged QTc and required frequent tweaking until an adequate regimen was achieved. SUBJECTIVE: Today, the patient denies any complaints. No chest pain, shortness of breath, fevers, chills, nausea, vomiting, or diarrhea. OBJECTIVE: VITAL SIGNS: Temperature 97.8, pulse 65, respiratory rate 16, blood pressure 112/74, oxygen saturation 98% on room air. GENERAL: He is a pleasant, elderly, man laying in bed, sleeping peacefully when I enter the room, easily arousable and in no distress. He is wearing street clothes. NEUROLOGIC: Cranial nerves II-XII are grossly intact. HEENT: He has moist mucous membranes. CARDIOVASCULAR: S1, S2, regular. RESPIRATORY: Clear. ABDOMEN: Benign. EXTREMITIES: No clubbing, cyanosis, or edema. LABORATORY STUDIES: WBC 4.6, hemoglobin 10.4, hematocrit 29.5, platelet count 184. Chemistry panel: Sodium 145, potassium 3.8, chloride 109, bicarbonate 28, BUN 18, creatinine 1.2, magnesium 1.7. All of the patient's microbiology was negative. He did have an MRI of the brain during his stay here that revealed generalized age appropriate parenchymal atrophy, white matter severe chronic ischemic changes. ASSESSMENT AND PLAN: This is a 76-year-old man with underlying dementia, with inability to care for himself, being discharged to [facility]. 1. Dementia. The patient had a Mini-Mental Status Score of 22. He does not have insight. He has poor judgment. He is continued on Risperdal, Seroquel, and Rozerem. 2. Acute kidney injury, secondary to dehydration, resolved. 3. Dyslipidemia. He is on a statin also. Utility of it given his advanced age and dementia is questionable. 4. Gastroesophageal reflux disease. The patient is on Protonix. 5. History of a prolonged QTc. Any adjustment of his psychiatric medications, I would recommend rechecking EKG to evaluate their effect on his QTc. 6. Vitamin D deficiency. He is on supplementation. 7. Deep vein thrombosis (DVT) prophylaxis. He has been on Lovenox. DISPOSITION: The patient is being discharged to the [facility]. He is to followup with his primary care provider (PCP) in seven days. His activity is as tolerated. His diet is consistent-carbohydrate. MEDICATIONS AT THE TIME OF DISCHARGE: - Tylenol 650 mg as needed for pain or fever - gabapentin 300 mg twice a day - Synthroid 15 mcg daily - magnesium oxide 400 mg twice a day - multivitamin two tablets daily - Seroquel 25 mg at bedtime - Rozerem 8 mg at bedtime - Risperdal 3 mg twice a day - Lipitor 20 mg daily - lansoprazole 30 mg daily Greater than 30 minutes was spent organizing a safe disposition.
== END 2016-04-26 14:06 | DRG 57 ==
LOC: M ED 13:28 → M ED INP 17:23 → M PCU 20:09 → M MSPAV 02-13 10:42 → M MS5PR 02-18 16:35
PROVIDERS: ADMIT Internal Medicine; ATTEND Internal Medicine
DX: G30.9 Alzheimer's disease, unspecified (principal); N17.9 Acute kidney failure, unspecified; F02.81 Dementia in other diseases classified elsewhere, unspecified severity, with behavioral disturbance; F10.27 Alcohol dependence with alcohol-induced persisting dementia; E87.0 Hyperosmolality and hypernatremia; E78.5 Hyperlipidemia, unspecified; K21.9 Gastro-esophageal reflux disease without esophagitis; E55.9 Vitamin D deficiency, unspecified; I45.81 Long QT syndrome; R29.6 Repeated falls; E86.0 Dehydration; Z79.899 Other long term (current) drug therapy; E03.9 Hypothyroidism, unspecified; E11.9 Type 2 diabetes mellitus without complications; I12.9 Hypertensive chronic kidney disease with stage 1 through stage 4 chronic kidney disease, or unspecified chronic kidney disease; M19.90 Unspecified osteoarthritis, unspecified site; K57.30 Diverticulosis of large intestine without perforation or abscess without bleeding; K44.9 Diaphragmatic hernia without obstruction or gangrene; Z87.891 Personal history of nicotine dependence; N18.9 Chronic kidney disease, unspecified; D64.9 Anemia, unspecified; I95.9 Hypotension, unspecified; E53.8 Deficiency of other specified B group vitamins; R00.1 Bradycardia, unspecified

== ENCOUNTER → 2016-05-03 | Outpatient (REF) | payer MEDICARE, OTHER ==
[~2016-05-03] MED LIST changes: +FLUO40CA PO; +GABA300C3 PO; +LANS30CA PO; +LEVO50TA5 PO; +LIPI20TA PO; +MAG400TA PO; +MAPA325T2 PO; +METF500T PO; +NADO40TA PO; -NADOLOL 20MG TABLET PO SCH; +NATE120T4 PO; +QUET1TAB7 PO; +RAMI10CA PO; +RISP3TAB18 PO; +ROZE8TAB9 PO; +VITMTA PO
[2016-05-03 08:38] LABS: MEAN CORPUSCULAR HEMOGLOBIN 33.8 pg (27.0-33.0); MEAN CORPUSCULAR HGB CONC 34.2 g/dl (32.0-36.5); MEAN CORPUSCULAR VOLUME 98.7 fl (80.0-96.0); RED CELL DISTRIBUTION WIDTH 12.3 % (11.5-14.5); WHITE BLOOD COUNT 7.2 K/mm3 (4.0-10.0)
[2016-05-03 09:42] LABS: CALCIUM LEVEL 9.3 MG/DL (8.8-10.2); CREATININE FOR GFR 1.36 MG/DL (0.70-1.30); GLOMERULAR FILTRATION RATE 54.5 (>42); POTASSIUM SERUM 4.1 MEQ/L (3.5-5.1)
== END | disposition home or self-care (01) ==
LOC: SKLAB8 07:00
PROVIDERS: ATTEND Internal Medicine
DX: E03.9 Hypothyroidism, unspecified (principal)

== ENCOUNTER → 2016-05-10 | Outpatient (REF) | payer MEDICARE, OTHER ==
[2016-05-10 08:51] LABS: MAGNESIUM LEVEL 1.9 MG/DL (1.8-2.4); PERCENT SATURATION 26.7 % (19.7-37.4); TOTAL IRON BINDING CAPACITY 273 UG/DL (250-450)
[2016-05-10 10:16] LABS: VITAMIN B12 LEVEL 1624 PG/ML (247-911)
[2016-05-10 10:17] LABS: FOLATE > 24.0 NG/ML (>5.4)
== END | disposition home or self-care (01) ==
LOC: SKLAB8 07:00
PROVIDERS: ATTEND Internal Medicine
DX: D64.9 Anemia, unspecified (principal); E11.9 Type 2 diabetes mellitus without complications

== ENCOUNTER → 2016-05-21 | Outpatient (REF) | payer MEDICARE, OTHER ==
--- NOTE | 2016-05-21 12:19 | REP ---
RIGHT HIP, TWO VIEWS: HISTORY: Fall. There is no acute fracture or dislocation. There is narrowing of the joint space. IMPRESSION: Degenerative change as described above. Signed by Jimmie Banks MD 05/21/2016 12:21 P
== END ==
LOC: SKLAB8 05-20 12:00
PROVIDERS: ATTEND Internal Medicine
DX: R29.6 Repeated falls (principal)

== ENCOUNTER → 2016-06-24 | Outpatient (REF) | payer MEDICARE, OTHER ==
[2016-06-24 10:52] LABS: MEAN CORPUSCULAR HEMOGLOBIN 33.5 pg (27.0-33.0); MEAN CORPUSCULAR HGB CONC 34.6 g/dl (32.0-36.5); MEAN CORPUSCULAR VOLUME 96.9 fl (80.0-96.0); RED CELL DISTRIBUTION WIDTH 12.5 % (11.5-14.5); WHITE BLOOD COUNT 6.7 K/mm3 (4.0-10.0)
[2016-06-24 11:11] LABS: ANION GAP 10 MEQ/L (8-16); BLOOD UREA NITROGEN 19 MG/DL (7-18); CARBON DIOXIDE LEVEL 29 MEQ/L (21-32); CHLORIDE LEVEL 100 MEQ/L (98-107); CREATININE FOR GFR 1.24 MG/DL (0.70-1.30); GLOMERULAR FILTRATION RATE > 60.0 (>42); GLUCOSE, FASTING 155 MG/DL (83-110); SODIUM LEVEL 139 MEQ/L (136-145)
== END ==
LOC: SKLAB8 08:00
PROVIDERS: ATTEND Internal Medicine
DX: E03.9 Hypothyroidism, unspecified (principal); E11.9 Type 2 diabetes mellitus without complications

== ENCOUNTER → 2016-07-19 | Outpatient (REF) | payer MEDICARE, OTHER ==
[~2016-07-19] MED LIST changes: +GABA-282 PO; -GABA300C3 PO
[2016-07-19 09:46] LABS: MEAN CORPUSCULAR HEMOGLOBIN 32.4 pg (27.0-33.0); MEAN CORPUSCULAR HGB CONC 33.7 g/dl (32.0-36.5); MEAN CORPUSCULAR VOLUME 96.1 fl (80.0-96.0); RED CELL DISTRIBUTION WIDTH 12.6 % (11.5-14.5); WHITE BLOOD COUNT 5.9 K/mm3 (4.0-10.0)
[2016-07-19 10:15] LABS: CALCIUM LEVEL 9.2 MG/DL (8.8-10.2); CREATININE FOR GFR 1.29 MG/DL (0.70-1.30); POTASSIUM SERUM 4.1 MEQ/L (3.5-5.1)
== END ==
LOC: SKLAB8 08:00
PROVIDERS: ATTEND Internal Medicine
DX: E03.9 Hypothyroidism, unspecified (principal); D64.9 Anemia, unspecified; I10 Essential (primary) hypertension; Z79.899 Other long term (current) drug therapy